=== PATIENT | male | born 1950 | race Caucasian/White ===

== ENCOUNTER → 2017-02-22 | Outpatient (CLI) | payer OTHER ==
[2014-09-07 23:35] VITALS: BP 144/87
[~2017-02-22] MED LIST: ALLO100T PO; ASPI-630 PO; CARV12.5 PO; DIGO125T PO; FURO80TA72 PO; HYDR12.58 PO; METF10002 PO; POTA20TA82 PO; QUIN20TA7 PO; SIMV40TA PO
--- NOTE | 2017-02-22 13:37 | RAD ---
CT right hip without contrast 02/22/2017 at 11:30 AM Indication: Chronic pain in the right hip. Difficulty bearing weight on leg. Comparison: CT abdomen/pelvis 09/07/2014 Technique: Axial CT images of the right hip were acquired without intravenous contrast. Coronal and sagittal reformats were provided. Findings: There is no acute fracture or dislocation. Bone mineralization appears to be within normal limits. Minimal acetabular osteophytosis is present. No significant joint space narrowing. No subchondral cystic changes are present. Small foveal osteophyte is present. Greater and lesser trochanter appear normal. Proximal femur is intact and normal in appearance. Pubic symphysis appears normal. There is no joint effusion. Visualized portions of the pelvis appear normal. Impression: Mild osteoarthrosis of the right hip. No evidence for acute fracture or dislocation. PQRS Compliance Statement: One or more of the following individualized dose reduction techniques were utilized for this examination: 1. Automated exposure control 2. Adjustment of the mA and/or kV according to patient size 3. Use of iterative reconstruction technique
== END | disposition home or self-care (01) ==
LOC: CT 11:03
PROVIDERS: ATTEND Family Medicine
DX: M16.11 Unilateral primary osteoarthritis, right hip (principal); G89.29 Other chronic pain
CPT/HCPCS: 73700

== ENCOUNTER → 2018-11-22 | Outpatient (CLI) | payer OTHER ==
[2014-09-07 23:35] VITALS: BP 144/87
[~2018-11-22] MED LIST changes: -DIGO125T PO; +DIGO125T17 PO; -METF10002 PO; +METF10007 PO; +QUIN20TA17 PO; -QUIN20TA7 PO
--- NOTE | 2018-11-22 10:00 | RAD ---
EXAM: Left knee, 3 views. HISTORY: Pain. COMPARISON: None. FINDINGS: A standing frontal view both knees and lateral and sunrise views of the left knee are obtained. There is severe left medial compartment joint space narrowing with degenerative subchondral sclerosis and marginal spurring. There is mild right medial compartment joint space narrowing and spurring. There is moderate left lateral and mild right lateral compartment and mild left patellofemoral compartment spurring. There is a small left suprapatellar effusion. There is slight left genu varus. IMPRESSION: 1. Severe medial compartment predominant osteoarthritis of the left knee with small joint effusion and slight genu varus. 2. Mild medial compartment predominant osteoarthritis of the right knee. Electronically signed by: Nadine Baumann MD (11/22/2018 9:57 AM) [facility]
== END | disposition home or self-care (01) ==
LOC: RAD 09:21
PROVIDERS: ATTEND Orthopaedic Surgery
DX: M17.0 Bilateral primary osteoarthritis of knee (principal); M25.462 Effusion, left knee; M21.162 Varus deformity, not elsewhere classified, left knee
CPT/HCPCS: 73562

== ENCOUNTER 2019-02-22 22:07 | Emergency (ER) | payer OTHER ==
[~2019-02-22] VITALS: Ht 172.7 cm; Wt 125.2 kg
--- NOTE | 2019-02-22 22:23 | ED.ADGEN ---
Past History Past Medical History: Arthritis, CAD, Constipation, Diabetes, High Cholesterol, Hypertension Past Surgical History: Cancer Surgery, Pacemaker Alcohol Use: Rarely Drug Use: None Adult General Chief Complaint Chief Complaint ".... We were moving out my brother in law stuff.. he just here... last month... . he had stage IV.. meta static cancer.. but it was still natividad unexpected.. but.. I tripped over the trailer gait cable.. and missed up my Lt. knee.... I know I already have bad knees... and smacked my head too...".." This has not been a good past month.. my mom too.. .. .. I know I got bad knees.. but this one really got ...to hurting after my fall.....".. " I was not going to come in.. but this knee was hurting... " HPI HPI Patient is a 68year old male who presents with above hx and complaints trip and fall. No loss of consciousness. Has a contusion and abrasion to left eyebrow. There is obvious swelling. No visual changes. Patient also has injury to left knee. Does have a history of arthritic changes. Unable to bear weight or walk with left knee with pain. Patient has abrasion to the patella area. Can do straight leg lift. Does have obvious edema to left knee. Distal neurovascular intact. . Patient denies other injury from the fall. Injuries occurred approximately 1800 hrs. tonight. Pt. normally follows with Dr. Dr. Chisholm. Has seen Dr. Richard about his bad knees in the past. Review of Systems Review of Systems Constitutional: Denies fever or chills [] Eyes: Denies change in visual acuity, redness, or eye pain [] HENT: Denies nasal congestion or sore throat []complaints of head injury Respiratory: Denies cough or shortness of breath [] Cardiovascular: No additional information not addressed in HPI [] GI: Denies abdominal pain, nausea, vomiting, bloody stools or diarrhea [] : Denies dysuria or hematuria [] Musculoskeletal: Denies back pain or joint pain [except]complaints of left knee injury Integument: Denies rash or skin lesions [] Neurologic: Denies headache, focal weakness or sensory changes [] Endocrine: Denies polyuria or polydipsia [] All other systems were reviewed and found to be within normal limits, except as documented in this note. Family History Family History Brother recently of cancer. [place] Current Medications Current Medications Current Medications Medications (Trade) Dose Ordered Sig/Tigist Start Time Stop Time Status Last Admin Dose Admin Morphine Sulfate (Morphine 10mg Syringe) 10 mg 1X ONCE 02/23/19 01:00 02/23/19 01:01 DC 02/23/19 00:53 10 MG Tetanus/ Diphtheria Toxoids Adsorbed (Tenivac Vial) 0.5 ml ONCE ONCE 02/22/19 22:30 02/22/19 22:31 UNV Allergies Allergies Allergies Coded Allergies Type Severity Reaction Last Updated Verified No Known Drug Allergies 09/07/14 No Physical Exam Physical Exam Constitutional: Moderate acute distress, non-toxic appearance. [] HENT: Normocephalic, left eyebrow contusion edema and abrasion, bilateral external ears normal, oropharynx moist, no oral exudates, nose normal. []Very poor dentition. Eyes: PERRLA, EOMI, conjunctiva normal, no discharge. [] No visual changes reported. Neck: Normal range of motion, no tenderness, supple, no stridor. [] Cardiovascular:Heart rate regular rhythm, no murmur []PMI to the left Lungs & Thorax: Bilateral breath sounds equal apex on auscultation[] Abdomen: Bowel sounds normal, soft, no tenderness, no masses, no pulsatile masses. [] Obese. Skin: Warm, dry, no erythema, no rash. [] Back: No tenderness, no CVA tenderness. [] Extremities: No tenderness, no cyanosis, no clubbing, ROM intact, no edema. [] E xcept findings and left knee as per history of present illness Neurologic: Alert and oriented X 3, moves all ext. on request. Distal sensory. Has no gross focal deficits noted. [] Psychologic: Affect anxious, judgement normal, mood normal. [] Current Patient Data Vital Signs Vital Signs Date Time Temp Pulse Resp B/P (MAP) Pulse Ox O2 Delivery O2 Flow Rate FiO2 02/22/19 22:07 97.8 83 22 95 Room Air EKG EKG [] Radiology/Procedures Radiology/Procedures My interpretation of Lt knee films.- marked DJD, loss of articulating cartilage. No obvious displaced fx.. [][address] [id number] IMAGING REPORT Signed PATIENT: CHEYANNE HOOKER ACCOUNT: [id number] : 1950 LOCATION: ER AGE: 68 SEX: M EXAM STATUS: REG ER ORD. PHYSICIAN: APOLLO MARTINEZ MD REASON: Fall, head injury. Brusing and pain above left eye PROCEDURE: CT HEAD AND CERVICAL SPINE WO INDICATION: Status post fall with head and neck pain COMPARISON: None. TECHNIQUE: Axial CT images obtained through the head, cervical spine and face. One or more of the following individualized dose reduction techniques were utilized for this examination: 1. Automated exposure control; 2. Adjustment of the mA and/or kV according to patient size; 3. Use of iterative reconstruction technique. FINDINGS: Head: No midline shift. Suprasellar cistern is not effaced. No hydrocephalus. Mild prominence of ventricles and sulci which can be seen with age-related volume loss. No definite acute intracranial hemorrhage. Cervical spine: Degenerative changes throughout the cervical spine with osteophyte formation at the vertebral body endplates with uncovertebral and facet hypertrophy. This contributes to multilevel central canal and neural foraminal stenosis. No definite acute fracture. Mild retrolisthesis of C3 on 4. Facial: Left preorbital hematoma extending to the scalp. No definite acute fracture or dislocation IMPRESSION: 1. No acute intracranial hemorrhage. 2. Degenerative changes the spine without definite acute fracture or dislocation. 3. Left preorbital hematoma. Electronically signed by: Riky Jo MD (02/23/2019 1:04 AM) [facility] DICTATED AND SIGNED BY: RIKY JO MD DATE: 02/23/19 0104 CC: LONI CHISHOLM MD; APOLLO MARTINEZ MD ~ Course & Med Decision Making Course & Med Decision Making Pertinent Labs and Imaging studies reviewed. (See chart for details), Pt. to do ice packs. Rest. Elevation. Wear current knee brace and use crutches. Follow up with Dr. Chisholm and Dr. Richard. Return if any concerns. Percocet f or marked pain. Return if any concerns. Monitor for mental status changes. [] Final Impression Final Impression 1. Lt Knee Sprain/ Strain contusion 2. Head Injury[] Dragon Disclaimer Dragon Disclaimer This electronic medical record was generated, in whole or in part, using a voice recognition dictation system. Discharge Summary Visit Information Final Diagnosis Problems Medical Problems: (1) Head injury Status: Acute (2) Knee arthropathy Status: Acute Brief Hospital Course Allergies Allergies Coded Allergies Type Severity Reaction Last Updated Verified No Known Drug Allergies 09/07/14 No Vital Signs Vital Signs Date Time Temp Pulse Resp B/P (MAP) Pulse Ox O2 Delivery O2 Flow Rate FiO2 02/22/19 22:07 97.8 83 22 95 Room Air Brief Hospital Course Mr. Hooker is a 68 old male who presented with hx trip and fall. Head injury and Lt knee injury. Discharge Information Condition at Discharge: Improved, Stable Disposition/Orders: D/C to Home Dischare Medications Current Medications Tetanus/ Diphtheria Toxoids Adsorbed (Tenivac Vial) 0.5 ml ONCE ONCE VAX IM ; Start 02/22/19 at 22:30; Stop 02/22/19 at 22:31; Status UNV Morphine Sulfate (Morphine 10mg Syringe) 10 mg 1X ONCE SQ Last administered on 02/22/19at 22:59; Admin Dose 10 MG; Start 02/22/19 at 23:00; Stop 02/22/19 at 23:01; Status DC Morphine Sulfate (Morphine 10mg Syringe) 10 mg 1X ONCE SQ Last administered on 02/23/19at 00:53; Admin Dose 10 MG; Start 02/23/19 at 01:00; Stop 02/23/19 at 01:01; Status DC Active Scripts Active Percocet 5-325 Mg Tablet (Oxycodone Hcl/Acetaminophen) 1 Each Tablet 1 Tab PO PRN Q6HRS PRN Reported Hydrochlorothiazide Tablet (Hydrochlorothiazide) 12.5 Mg Tablet 12.5 Mg PO DAILY Quinapril Hcl 20 Mg Tablet 20 Mg PO DAILY Zocor (Simvastatin) 40 Mg Tablet 40 Mg PO HS Potassium Chloride 20 Meq Tablet.er 20 Meq PO BID Metformin Hcl 1,000 Mg Tablet 1,000 Mg PO BIDBFRMEAL Lasix (Furosemide) 80 Mg Tablet 80 Mg PO BID Digoxin 125 Mcg Tablet 125 Mcg PO DAILY Coreg (Carvedilol) 12.5 Mg Tablet 12.5 Mg PO BIDWMEALS Aspirin 81 Mg Tab.chew 81 Mg PO DAILY Allopurinol 100 Mg Tablet 100 Mg PO DAILY Harry Disclaimer This chart was dictated in whole or in part using Voice Recognition software in a busy, high-work load, and often noisy Emergency Department environment. It may contain unintended and wholly unrecognized errors or omissions. APOLLO MARTINEZ MD Feb 22, 2019 22:23
[2019-02-22] MEDS ORDERED: TETANUS AND DIPHTHERIA TOX/PF 0.5 ML VIAL. VAX IM ONE (22:30)
[2019-02-22] MEDS ORDERED: MORPHINE SULFATE 10 MG/ML SYRINGE. SQ ONE (23:00)
[2019-02-23] MEDS ORDERED: MORPHINE SULFATE 10 MG/ML SYRINGE. SQ ONE (01:00)
--- NOTE | 2019-02-23 01:07 | RAD ---
INDICATION: Status post fall with head and neck pain COMPARISON: None. TECHNIQUE: Axial CT images obtained through the head, cervical spine and face. One or more of the following individualized dose reduction techniques were utilized for this examination: 1. Automated exposure control; 2. Adjustment of the mA and/or kV according to patient size; 3. Use of iterative reconstruction technique. FINDINGS: Head: No midline shift. Suprasellar cistern is not effaced. No hydrocephalus. Mild prominence of ventricles and sulci which can be seen with age-related volume loss. No definite acute intracranial hemorrhage. Cervical spine: Degenerative changes throughout the cervical spine with osteophyte formation at the vertebral body endplates with uncovertebral and facet hypertrophy. This contributes to multilevel central canal and neural foraminal stenosis. No definite acute fracture. Mild retrolisthesis of C3 on 4. Facial: Left preorbital hematoma extending to the scalp. No definite acute fracture or dislocation IMPRESSION: 1. No acute intracranial hemorrhage. 2. Degenerative changes the spine without definite acute fracture or dislocation. 3. Left preorbital hematoma. Electronically signed by: Doug Jo MD (02/23/2019 1:04 AM) [facility]
[2019-02-23] MEDS ORDERED: OXYC1TAB15 PO (01:14)
[2019-02-23 01:19] VITALS: BP 134/89
--- NOTE | 2019-02-23 07:50 | RAD ---
CHEST AP ONLY Clinical Indication: Fall, pain Comparison: None. Findings: PA upright frontal view of the chest was obtained. Dual-lead left-sided pacemaker is intact. Heart size and pulmonary vasculature are normal. The cardiomediastinal silhouette is normal. Lungs are clear. There is no pneumothorax. No pleural effusion is appreciated. No acute bone abnormality. IMPRESSION: No acute cardiopulmonary process. Electronically signed by: Judson Butler MD (02/23/2019 7:47 AM) [facility]
--- NOTE | 2019-02-23 07:51 | RAD ---
Examination: KNEE LEFT 4V History: Fall, pain Comparison/Correlation: None Findings: Total of 5 images of the left knee were provided. Severe medial compartment narrowing is present with subchondral sclerosis and spurring. Spurring about the lateral compartment is noted. Patellofemoral compartment degenerative remodeling and spurring noted. Moderate-sized knee joint effusion is present. No acute fracture or bony destruction. Impression: Advanced degenerative changes especially of the medial compartment. Joint effusion. No acute process. Electronically signed by: Judson Butler MD (02/23/2019 7:48 AM) [facility]
== END 2019-02-23 01:30 | disposition home or self-care (01) ==
LOC: ER 22:07
DX: S00.12XA Contusion of left eyelid and periocular area, initial encounter (principal); S80.212A Abrasion, left knee, initial encounter; M12.862 Other specific arthropathies, not elsewhere classified, left knee; I25.10 Atherosclerotic heart disease of native coronary artery without angina pectoris; E11.9 Type 2 diabetes mellitus without complications; E78.00 Pure hypercholesterolemia, unspecified; I10 Essential (primary) hypertension; R51 Headache; M54.2 Cervicalgia; Z95.0 Presence of cardiac pacemaker; W01.0XXA Fall on same level from slipping, tripping and stumbling without subsequent striking against object, initial encounter; Y93.89 Activity, other specified; Y92.89 Other specified places as the place of occurrence of the external cause; Y99.8 Other external cause status
CPT/HCPCS: 29505; 70450; 70486; 71045; 72125; 73564; 96372; 99284; J2270; 99285-25

== ENCOUNTER 2019-08-17 11:34 | Inpatient (IN) | payer MEDICARE, OTHER ==
[~2019-08-17] VITALS: Ht 175.3 cm; Wt 131.3 kg
[~2019-08-17 11:34] MED LIST changes: +OXYC1TAB15 PO; +POTA20TA4 PO; -POTA20TA82 PO
[2019-08-17 11:54] VITALS: BP 189/93
[2019-08-17 12:02] VITALS: BP 189/93
[2019-08-17] MEDS ORDERED: DEXTROSE 50% 25 GM / 50ML DISP.SYRIN. IV PRN (12:15)
[2019-08-17] MEDS: INSULIN LISPRO 300 UNITS/3 ML VIAL. SQ SCH ×2 (12:30→16:48)
[2019-08-17 13:28] LABS: BASO # 0.2 x10^3/uL (0.0-0.2); BASO % 2 % (0-3); EOS # 0.7 x10^3/uL (0.0-0.7); EOS % 7 % (0-3); HEMOGLOBIN 12.6 g/dL (13.0-17.5); LYMPH # 2.3 x10^3/uL (1.0-4.8); LYMPH % 23 % (24-48); MEAN CORPUSCULAR HEMOGLOBIN 30 pg (25-35); MEAN CORPUSCULAR HGB CONC 33 g/dL (31-37); MEAN CORPUSCULAR VOLUME 91 fL (79-100); MONO # 0.6 x10^3/uL (0.0-1.1); MONO % 6 % (0-9); NEUT # 6.4 x10^3uL (1.8-7.7); NEUT % 63 % (31-73); PLATELET COUNT 266 x10^3/uL (140-400); RED BLOOD COUNT 4.17 x10^6/uL (4.30-5.70); RED CELL DISTRIBUTION WIDTH 14.7 % (11.5-14.5); WHITE BLOOD COUNT 10.2 x10^3/uL (4.0-11.0)
[2019-08-17] MEDS: FUROSEMIDE 40 MG/4 ML VIAL IVP SCH (13:57)
--- NOTE | 2019-08-17 14:30 | NUR ---
Pt arrived on [facility] at approximately 1134. Pt came from Dr. Carranza's office for CHF exacerbation. Pt denies any pain. BP upon arrival 189/93. Notified Provider of high BP will recheck as instructed. Ekg performed, bed in lowest position, call light within reach, family at bedside. Peripheral IV inserted in L upper arm. Non-skid socks applied. Care plans initiated. Received pt medication list from spouse. Will continue to assess and await upcoming orders.
[2019-08-17] MEDS ORDERED: METF500T16 PO (15:03)
[2019-08-17] MEDS ORDERED: CARV25TA2 PO (15:03)
[2019-08-17] MEDS ORDERED: HYDR-2763 PO (15:03)
[2019-08-17] MEDS ORDERED: POTASSIUM PO (15:03)
[2019-08-17 15:05] VITALS: BP 171/81
[2019-08-17] MEDS ORDERED: VIT1CAPS12 PO (15:08)
[2019-08-17] MEDS ORDERED: INSU100V13 SQ (15:08)
[2019-08-17] MEDS ORDERED: COLC0.6T34 PO (15:08)
[2019-08-17] MEDS ORDERED: OMEP-203 PO (15:09)
[2019-08-17 15:15] LABS: ALBUMIN 2.9 g/dL (3.4-5.0); ALBUMIN/GLOBULIN RATIO 0.8 (1.0-1.7); CREATININE 1.2 mg/dL (0.7-1.3); GFR 60.4; MAGNESIUM 2.1 mg/dL (1.8-2.4); POTASSIUM 4.4 mmol/L (3.5-5.1); TOTAL BILIRUBIN 0.3 mg/dL (0.2-1.0); TOTAL PROTEIN 6.7 g/dL (6.4-8.2)
[2019-08-17] MEDS ORDERED: SACU1TAB PO (15:15)
[2019-08-17] MEDS ORDERED: HYDROcodone/APAP 7.5/325MG 1 TAB TABLET PO PRN (15:30)
[2019-08-17] MEDS ORDERED: oxyCODONE/APAP 5/325 1 TAB TABLET PO PRN (15:30)
--- NOTE | 2019-08-17 16:20 | CONS ---
DATE OF CONSULTATION: 08/17/2019 REASON FOR CONSULTATION: Heart failure. HISTORY OF PRESENT ILLNESS: The patient is a pleasant 68-year-old man with past medical history as described below, who comes into the hospital at the urging of his primary care physician due to persistent shortness of breath. The patient reports that he usually is seen at the [facility]. He has a known diagnosis of diastolic heart failure and he has been managed on losartan and furosemide therapy. He reports that over the last 1 month, he has gained approximately 30 pounds or so. He reports lower extremity edema and exertional dyspnea. He does not have any chest pain. Based on review of outside hospital records, the prior cardiology note from late 2018, it is notable that the patient apparently had a negative stress test in 2018 and a normal echocardiogram. He had nonsustained ventricular tachycardia on prior pacemaker interrogation and recent device interrogation in July has not revealed any significant pathology. The patient upon arrival to the hospital was noted to be significantly hypertensive. He does endorse that Dr. Carranza, his primary care physician recently stopped his losartan and also stopped his diuretic therapy and he apparently was given a different diuretic and the details of this are currently unclear. Furthermore from a medication perspective, he previously was on losartan as noted, but currently he has also been prescribed Entresto. Outside hospital records, although the physician notes mention normal stress test and echocardiogram, I do not have the actual echocardiogram report or the stress test report to confirm a normal ejection fraction. PAST MEDICAL HISTORY: 1. Diastolic heart failure and significant morbid obesity. 2. Chronic kidney disease with last known creatinine of 1.4 in 2019 and currently at 1.2. 3. Hypertension. 4. Diabetes. 5. Dyslipidemia. 6. Obstructive sleep apnea. ALLERGIES: No known drug allergies. CURRENT CARDIOVASCULAR MEDICATIONS: Unclear, but the patient reportedly has been on Coreg, losartan, furosemide. FAMILY HISTORY: Noncontributory. SOCIAL HISTORY: No alcohol, tobacco or illicit drug use. REVIEW OF SYSTEMS: Negative for 10 out of 14 systems reviewed, unless otherwise mentioned above in HPI. PHYSICAL EXAMINATION: VITAL SIGNS: Afebrile, 65, 20, 171/81, 93% on room air. GENERAL: He is very morbidly obese patient, in no acute distress, resting comfortably, lying flat in bed. HEAD AND NECK: Unremarkable. Neck veins are difficult to visualize. CARDIAC: Distant heart sounds, but regular rate and rhythm without any obvious murmurs. LUNGS: Clear to auscultation anteriorly. ABDOMEN: Obese, protuberant, nontender. Bowel sounds are distant. EXTREMITIES: 2+ lower extremity edema. 2+ radial and 1+ pedal pulses. NEUROLOGIC: No focal deficits. MUSCULOSKELETAL: No obvious trauma. DIAGNOSTIC STUDIES: Hemoglobin, platelets, creatinine are within normal limits. Troponin is negative. BNP is 682. EKG is currently pending. IMPRESSION: 1. Presumed diastolic heart failure and we will await the reports of his prior ischemic cardiac testing. 2. Uncontrolled hypertension, likely leading to #1. 3. Diabetes. 4. Chronic kidney disease, currently with a baseline creatinine of 1.2. RECOMMENDATIONS: 1. We will confirm the patient's appropriate medication list and reinstate him on his drugs and further recommendations forthcoming after review of outside hospital record. Suspect he will need to be reinitiated back on his carvedilol, losartan and diuretic therapy with spironolactone and Lasix. Monitor renal function closely. If the outside hospital testing does confirm a negative ischemic evaluation within the last 1-2 years, then no further cardiac stress testing is necessary at this time. Supportive care. Thank you for this consultation. GOPAL LLOYD MD DR: QUYEN/tenisha JOB#: [id number] / [id number]
[2019-08-17] MEDS: SACUBITRIL/VALSARTAN 24/26MG TABLET. PO SCH ×2 (16:46→21:44)
[2019-08-17] MEDS ORDERED: CARVEDILOL 12.5 MG TABLET PO SCH (17:00)
[2019-08-17] MEDS: CARVEDILOL 12.5 MG TABLET PO SCH (17:02)
[2019-08-17] MEDS: metFORMIN 500 MG TABLET PO SCH (17:03)
--- NOTE | 2019-08-17 17:38 | EKG ---
[address] [address] Test Date: 2019-08-17 Test Time: 12:22:09 Pat Name: CHEYANNE FELIX Department: Room: 103 A Gender: M Physician Coding Specialist: : 1950 Requested By: LONI CHISHOLM Order Number: [id number] Reading MD: Measurements Intervals [place] Rate: 66 P: [place]: QRS: 44 QRSD: 74 T: 30 QT: 382 QTc: 402 Interpretive Statements IRREGULAR RHYTHM, NO P-WAVE FOUND LOW LIMB LEAD VOLTAGE QRS(T) CONTOUR ABNORMALITY CONSISTENT WITH ANTEROSEPTAL INFARCT AGE UNDETERMINED ABNORMAL ECG RI6.02 No previous ECG available for comparison
[2019-08-17 19:36] VITALS: BP 185/75
[2019-08-17] MEDS: INSULIN GLARGINE SYRINGE. SQ SCH (21:00)
[2019-08-17] MEDS ORDERED: SIMVASTATIN 40 MG TABLET. PO SCH (21:00)
[2019-08-17] MEDS ORDERED: POTASSIUM 20 MEQ PO SCH (21:00)
[2019-08-17] MEDS ORDERED: INSULIN DETEMIR 70 UNIT SQ SCH (21:00)
[2019-08-17] MEDS: POTASSIUM CHLORIDE 20 MEQ TABLET.ER. PO SCH (21:44)
[2019-08-17] MEDS: MULTIVITAMIN I-VITE TABLET. PO SCH (21:44)
[2019-08-17 22:16] VITALS: BP 161/70
[2019-08-17] MEDS ORDERED: ZOLPIDEM 5 MG TABLET. PO PRN (23:00)
[2019-08-17] MEDS ORDERED: MAG HYDROX/AL HYDROX/SIMETH 30 ML ORAL.SUSP PO PRN (23:00)
[2019-08-18 05:16] VITALS: BP 182/74
--- NOTE | 2019-08-18 07:41 | PDOC ---
ANGELINA SEVILLA SMOCKING MACHINE OPERATOR 08/18/19 0741: CARDIO Progress Notes Date & Time Date of Service DATE: 08/18/19 TIME: 07:33 Time of Evaluation 07:33 Subjective Notes Edema better, but persists Vitals Vitals Vital Signs Date Time Temp Pulse Resp B/P (MAP) Pulse Ox O2 Delivery O2 Flow Rate FiO2 08/18/19 05:16 97.6 64 20 182/74 (110) 93 Room Air Weight Weight [ ] Input and Output I.O. Intake and Output 08/18/19 06:59 Intake Total 1320 ml Output Total 2 ml Balance 1318 ml Intake Oral 1320 ml Output Urine Total 2 ml # Voids 3 Laboratory Labs Laboratory Tests Test 08/17/19 11:47 08/17/19 13:15 08/17/19 14:52 08/17/19 16:47 Glucose (Fingerstick) 71 mg/dL (70-99) 68 mg/dL (70-99) White Blood Count 10.2 x10^3/uL (4.0-11.0) Red Blood Count 4.17 x10^6/uL (4.30-5.70) Hemoglobin 12.6 g/dL (13.0-17.5) Hematocrit 38.0 % (39.0-53.0) Mean Corpuscular Volume 91 fL (79-100) Mean Corpuscular Hemoglobin 30 pg (25-35) Mean Corpuscular Hemoglobin Concent 33 g/dL (31-37) Red Cell Distribution Width 14.7 % (11.5-14.5) Platelet Count 266 x10^3/uL (140-400) Neutrophils (%) (Auto) 63 % (31-73) Lymphocytes (%) (Auto) 23 % (24-48) Monocytes (%) (Auto) 6 % (0-9) Eosinophils (%) (Auto) 7 % (0-3) Basophils (%) (Auto) 2 % (0-3) Neutrophils # (Auto) 6.4 x10^3uL (1.8-7.7) Lymphocytes # (Auto) 2.3 x10^3/uL (1.0-4.8) Monocytes # (Auto) 0.6 x10^3/uL (0.0-1.1) Eosinophils # (Auto) 0.7 x10^3/uL (0.0-0.7) Basophils # (Auto) 0.2 x10^3/uL (0.0-0.2) Troponin I Quantitative < 0.017 ng/mL (0-0.055) FE-Ste-N-Type Natriuretic Peptide 682 pg/mL (0-124) Sodium Level 144 mmol/L (136-145) Potassium Level 4.4 mmol/L (3.5-5.1) Chloride Level 107 mmol/L (98-107) Carbon Dioxide Level 27 mmol/L (21-32) Anion Gap 10 (6-14) Blood Urea Nitrogen 19 mg/dL (8-26) Creatinine 1.2 mg/dL (0.7-1.3) Estimated GFR (Cockcroft-Gault) 60.4 BUN/Creatinine Ratio 16 (6-20) Glucose Level 91 mg/dL (70-99) Calcium Level 9.0 mg/dL (8.5-10.1) Magnesium Level 2.1 mg/dL (1.8-2.4) Total Bilirubin 0.3 mg/dL (0.2-1.0) Aspartate Amino Transf (AST/SGOT) 10 U/L (15-37) Alanine Aminotransferase (ALT/SGPT) 15 U/L (16-63) Alkaline Phosphatase 66 U/L (46-116) Creatine Kinase 27 U/L (39-308) Total Protein 6.7 g/dL (6.4-8.2) Albumin 2.9 g/dL (3.4-5.0) Albumin/Globulin Ratio 0.8 (1.0-1.7) Test 08/17/19 20:02 Glucose (Fingerstick) 78 mg/dL (70-99) Physical Exams HEENT: Neck Supple W Full Motion Chest: Symmetric Lungs: Other (diminished ) Heart: S1S2, RRR (v-paced) Abdomen: Soft N/T Extremities: Other (1+ bilateral LE edema ) Neurology: alert, oriented, follow commands Assessment Assessment 1. Acute on chronic presumed diastolic heart failure. Stress test 2018 without ischemic. Echo in 2018 with LVEF 60% 2. Accelerated hypertension; remains elevated 3. Diabetes, II 4. Dyslipidemia. 5. CKD 6. PAFIB; maintaining SR. 5 AHR events with an atrial burden of <0.1% 7. SSS s/p PPM ([employer]tr[employer]) Recent device check with normal function 8. Obstructive sleep apnea. 9. Morbid obesity 10. Recent significant weight gain Recommendations Echo to assess LV systolic function (last echo noted was in 2018 per [facility] records). Ongoing diuresis with monitoring of renal function Continue dig for rate control HF optimization Add norvasc for BP control Supportive care LIZA DE LA O MD 08/18/19 1631: CARDIO Progress Notes Plan Plan Patient seen and examined Assessment 1. Acute on chronic presumed diastolic heart failure. Stress test 2018 without ischemic. Updated echocardiogram with an ejection fraction of 55%. Continuing medical treatment. 2. Accelerated hypertension; proved. Adjusting medications. 3. Diabetes, II 4. Dyslipidemia. 5. CKD 6. PAFIB; maintaining SR. 5 AHR events with an atrial burden of <0.1% 7. SSS s/p PPM ([employer]tr[employer]) Recent device check with normal function 8. Obstructive sleep apnea. 9. Morbid obesity 10. Recent significant weight gain Recommendations Continue present medications with the addition of Norvasc. Increase activities as tolerated. Home soon from a cardiovascular viewpoint. ANGELINA SEVILLA APRN Aug 18, 2019 07:41 LIZA DE LA O MD Aug 18, 2019 16:31
[2019-08-18] MEDS ORDERED: hydrALAZINE 20 MG/ML VIAL. IV PRN (07:45)
[2019-08-18] MEDS: INSULIN LISPRO 300 UNITS/3 ML VIAL. SQ SCH ×3 (08:00→17:00)
[2019-08-18] MEDS ORDERED: FLU VAX QS 2019-20 (36MOS+)/PF 0.5 ML SYRINGE. VAX IM ONE (08:00)
[2019-08-18] MEDS: FUROSEMIDE 40 MG/4 ML VIAL IVP SCH ×2 (08:07→14:13)
[2019-08-18] MEDS: metFORMIN 500 MG TABLET PO SCH ×2 (08:08→17:10)
[2019-08-18] MEDS: ASPIRIN 81 MG TAB.CHEW PO SCH (08:08)
[2019-08-18] MEDS: DIGOXIN 125 MCG TABLET PO SCH (08:08)
[2019-08-18] MEDS: PANTOPRAZOLE 40 MG TABLET. PO SCH (08:08)
[2019-08-18] MEDS: POTASSIUM CHLORIDE 20 MEQ TABLET.ER. PO SCH ×2 (08:08→21:41)
[2019-08-18] MEDS: MULTIVITAMIN I-VITE TABLET. PO SCH ×2 (08:08→21:41)
[2019-08-18] MEDS: SACUBITRIL/VALSARTAN 24/26MG TABLET. PO SCH (08:09)
[2019-08-18] MEDS: CARVEDILOL 12.5 MG TABLET PO SCH ×2 (08:09→17:11)
[2019-08-18] MEDS: ALLOPURINOL 100 MG TABLET. PO SCH (08:09)
[2019-08-18] MEDS ORDERED: QUINAPRIL HCL 20 MG PO SCH (09:00)
[2019-08-18] MEDS: hydrALAZINE 25 MG TABLET PO SCH ×3 (09:13→21:41)
[2019-08-18] MEDS: amLODIPine BESYLATE 5 MG TABLET PO SCH (09:13)
[2019-08-18] MEDS: LOSARTAN 50 MG TABLET. PO SCH (09:13)
[2019-08-18 10:46] VITALS: BP 157/79
--- NOTE | 2019-08-18 11:56 | RAD ---
CHEST PA LATERAL History: Shortness of breath Comparison: 02/22/2019 AP view of the chest. Findings: Frontal and lateral views of the chest were obtained. Dual-lead left-sided pacemaker is present. The cardiomediastinal silhouette is normal. Pulmonary vasculature is normal. The lungs are clear. No pleural effusion or pneumothorax is seen. There is no acute bone abnormality. IMPRESSION: No acute cardiopulmonary process. Electronically signed by: Judson Butler MD (08/18/2019 11:53 AM) [facility]
[2019-08-18 14:46] VITALS: BP 171/91
--- NOTE | 2019-08-18 16:18 | CARD ---
MR#: [id number] Date of Study: 08/18/2019 Ordering Physician: ANGELINA SEVILLA, Referring Physician: ANGELINA SEVILLA, Tech: Radha Palm APPROVED REPORT EXAM: Two-dimensional and M-mode echocardiogram with Doppler and color Doppler. Other Information Quality : FairHR: 62bpm Technically limited study due to body habitus. INDICATION Dyspnea Congestive Heart Failure Surgery/Intervention Pacemaker: RISK FACTORS Hypertension Hyperlipidemia Diabetes 2D DIMENSIONS RVDd4.3 (2.9-3.5cm)Left Atrium(2D)3.9 (1.6-4.0cm) IVSd1.3 (0.7-1.1cm)Aortic Root(2D)4.0 (2.0-3.7cm) LVDd5.5 (3.9-5.9cm)LVOT Diameter2.3 (1.8-2.4cm) PWd1.5 (0.7-1.1cm)LVDs3.8 (2.5-4.0cm) FS (%) 31.8 %SV88.8 ml LVEF(%)59.3 (>50%) Aortic Valve AoV Peak Patrick.130.8cm/sAoV VTI28.8cm AO Peak GR.6.8mmHgLVOT Peak Patrick.76.8cm/s LVOT VTI 19.77cmAO Mean GR.4mmHg GALI (VMAX)2.05jx3KSH (VTI)2.76cm2 Mitral Valve MV E Vlsktkdj27.7cm/sMV DECEL [id number] MV A Mpbbuzqq73.5cm/sE/A Ratio1.1 Pulmonary Valve PV Peak Bvqlfrac26.8cm/sPV Peak Grad.3mmHg Tricuspid Valve TR P. Qhxxsisp525iy/sRAP CXJIVDWQ3ftKh TR Peak Gr.30xlYbNORL38heDk Pulmonary Vein S1 Bydwzxmn39.7cm/sD2 Snecidjg40.9cm/s LEFT VENTRICLE The left ventricle is normal size. There is moderate concentric left ventricular hypertrophy. The lef t ventricular systolic function is normal. The Ejection Fraction is 55%. There is normal LV segmental wall motion. RIGHT VENTRICLE The right ventricle is mildly dilated. There is normal right ventricular wall thickness. Right ventri cular function cannot be assessed due to poor image quality. There is a pacemaker lead in the right v entricle. ATRIA The left atrium size is normal. The right atrium size is normal. There is a pacemaker lead seen in th e right atrium. The interatrial septum is intact with no evidence for an atrial septal defect or waggoner nt foramen ovale as noted on 2-D or Doppler imaging. AORTIC VALVE The aortic valve is normal in structure and function. Doppler and Color Flow revealed no significant aortic regurgitation. There is no significant aortic valvular stenosis. MITRAL VALVE The mitral valve is normal in structure and function. There is no evidence of mitral valve prolapse. There is no mitral valve stenosis. Doppler and Color Flow revealed no mitral valve regurgitation note d. TRICUSPID VALVE The tricuspid valve is not well visualized. Doppler and Color Flow revealed trace tricuspid regurgita tion with an estimated PAP of 33 mmHg. There is no tricuspid valve stenosis. PULMONIC VALVE The pulmonic valve is not well visualized. Doppler and Color Flow revealed trace pulmonic valvular re gurgitation. GREAT VESSELS The aortic root is normal in size. The IVC was not well visualized. PERICARDIAL EFFUSION There is no evidence of significant pericardial effusion. Critical Notification Critical Value: No <Conclusion> Technically difficult study. The left ventricular systolic function is normal. The Ejection Fraction is 55%. There is normal LV segmental wall motion. There is a pacemaker lead in the right atrium and right ventricle. Trace tricuspid regurgitation with an estimated PAP of 33 mmHg. There is no evidence of significant pericardial effusion. Signed by : Russell Lam, Electronically Approved : 08/18/2019 16:17:27
[2019-08-18 19:29] VITALS: BP 125/74
[2019-08-18] MEDS: INSULIN GLARGINE SYRINGE. SQ SCH (21:39)
[2019-08-18] MEDS: ATORVASTATIN CALCIUM 20 MG TABLET PO SCH (21:41)
[2019-08-18 22:46] VITALS: BP 143/76
--- NOTE | 2019-08-19 03:21 | PN ---
DATE: SUBJECTIVE: The patient admitted with congestive heart failure and the like. The patient is doing somewhat better. He still has swelling, but he has good output, which is not being measured very well. In any case, he is diuresing good and seems to be making fairly good progress in that regard. He has been seen by Cardiology. Blood pressure is still elevated and we are adjusting his medications on that. OBJECTIVE: VITAL SIGNS: His blood pressure 170/90, respiratory rate 20, pulse 66, afebrile. He is 93% on room air. GENERAL: The patient is alert and oriented. NECK: The patient's neck is supple. LUNGS: Diminished throughout. CARDIOVASCULAR: Ventricular paced S1, S2. ABDOMEN: Distended, soft, nontender, no rebound or guarding. Positive bowel sounds, no hepatosplenomegaly. EXTREMITIES: +1 to 2 pitting bilateral edema. NEUROLOGIC: Alert and oriented x 3. LABORATORY DATA: Show hemoglobin of 12.6 and 38. His blood sugars are under better control. The patient's ____ that is 144/4.4. He has severe protein malnutrition. IMPRESSION: Acute on top of chronic diastolic heart failure, hypertensive urgency, type 2 diabetes, morbid obesity, dyslipidemia, paroxysmal atrial fibrillation, sick sinus syndrome and Medtronic pacemaker, obstructive sleep apnea, morbid obesity and recent weight gain. PLAN: Continue with diuresis, try to get that blood pressure down and we will make further evaluation on him as indicated. LONI CHISHOLM MD DR: PABLO/tenisha JOB#: [id number] / [id number]
--- NOTE | 2019-08-19 04:59 | NUR ---
pt received 35units of insulin instead of his full 70 units due to his blood sugar being only 133. will monitor pt through the night.
[2019-08-19 05:19] VITALS: BP 169/81
[2019-08-19 07:01] LABS: BASO % 0 % (0-3); EOS # 0.6 x10^3/uL (0.0-0.7); EOS % 7 % (0-3); HEMATOCRIT 37.4 % (39.0-53.0); HEMOGLOBIN 12.4 g/dL (13.0-17.5); LYMPH # 1.8 x10^3/uL (1.0-4.8); LYMPH % 22 % (24-48); MEAN CORPUSCULAR HEMOGLOBIN 31 pg (25-35); MEAN CORPUSCULAR HGB CONC 33 g/dL (31-37); MEAN CORPUSCULAR VOLUME 93 fL (79-100); MONO # 0.6 x10^3/uL (0.0-1.1); MONO % 7 % (0-9); NEUT # 5.1 x10^3uL (1.8-7.7); NEUT % 63 % (31-73); PLATELET COUNT 274 x10^3/uL (140-400); RED BLOOD COUNT 4.01 x10^6/uL (4.30-5.70); WHITE BLOOD COUNT 8.2 x10^3/uL (4.0-11.0)
[2019-08-19 07:09] LABS: CALCIUM 8.9 mg/dL (8.5-10.1); CREATININE 1.4 mg/dL (0.7-1.3); GFR 50.5; POTASSIUM 4.5 mmol/L (3.5-5.1)
[2019-08-19] MEDS: FUROSEMIDE 40 MG/4 ML VIAL IVP SCH ×2 (08:14→14:16)
[2019-08-19] MEDS: DIGOXIN 125 MCG TABLET PO SCH (08:15)
[2019-08-19] MEDS: LOSARTAN 50 MG TABLET. PO SCH (08:15)
[2019-08-19] MEDS: PANTOPRAZOLE 40 MG TABLET. PO SCH (08:18)
[2019-08-19] MEDS: POTASSIUM CHLORIDE 20 MEQ TABLET.ER. PO SCH ×2 (08:18→21:30)
[2019-08-19] MEDS: metFORMIN 500 MG TABLET PO SCH ×2 (08:18→16:48)
[2019-08-19] MEDS: CARVEDILOL 12.5 MG TABLET PO SCH ×2 (08:18→16:49)
[2019-08-19] MEDS: amLODIPine BESYLATE 5 MG TABLET PO SCH (08:18)
[2019-08-19] MEDS: ALLOPURINOL 100 MG TABLET. PO SCH (08:18)
[2019-08-19] MEDS: hydrALAZINE 25 MG TABLET PO SCH ×3 (08:19→21:30)
[2019-08-19] MEDS: ASPIRIN 81 MG TAB.CHEW PO SCH (08:19)
[2019-08-19] MEDS: MULTIVITAMIN I-VITE TABLET. PO SCH ×2 (08:19→21:30)
[2019-08-19] MEDS: INSULIN LISPRO 300 UNITS/3 ML VIAL. SQ SCH ×3 (08:27→16:44)
[2019-08-19] MEDS ORDERED: NITROGLYCERIN 0.2MG/HR PATCH. TD SCH ×2 (09:00→12:00)
[2019-08-19] MEDS ORDERED: NITROGLYCERIN 0.3MG/HR PATCH. TD SCH (09:30)
--- NOTE | 2019-08-19 10:19 | PN ---
DATE: SUBJECTIVE: A 68-year-old male in with acute on top of chronic diastolic heart failure. The patient has been markedly distended with over fluid retention and the like, seems to be doing somewhat better this morning. OBJECTIVE: VITAL SIGNS: Blood pressure is still a problem that is coming down gradually 169/81, respiratory rate 24, pulse 63, afebrile. GENERAL: The patient is alert and oriented. LUNGS: Diminished, some crackles in the bases, but markedly improved from where they were. ABDOMEN: Otherwise, the abdomen is soft, nontender. The patient is still having pitting edema, but less so that he had previously. Pulses noted distally. NEUROLOGIC: Alert and oriented. Speech is fluent, spontaneous, appropriate. The patient is ambulatory and moving around quite freely. IMPRESSION: Acute on top of chronic diastolic heart failure, hypertensive urgency, type 2 diabetes, morbid obesity, dyslipidemia, paroxysmal atrial fibrillation, sick sinus syndrome, Medtronic pacemaker, obstructive sleep apnea, morbid obesity, recent weight gain. The patient otherwise will go ahead and continue on his diuresis. Cardiology is to review his echo and we will make further evaluation at that time. LONI CHISHOLM MD DR: PABLO/tenisha JOB#: [id number] / [id number]
[2019-08-19 11:05] VITALS: BP 147/81
[2019-08-19] MEDS ORDERED: NITROGLYCERIN 0.1MG/HR PATCH. TD SCH (12:00)
[2019-08-19] MEDS ORDERED: amLODIPine BESYLATE 5 MG TABLET PO ONE (14:00)
--- NOTE | 2019-08-19 14:32 | PDOC ---
PROGRESS NOTES Assessment 1. Acute on chronic diastolic heart failure. Stress test 2018 without ischemic changes. 2D echocardiogram showed left ventricular ejection fraction of 55%. He is clinically better compensated. Change Lasix to by mouth. 2. Accelerated hypertension; improved but still slightly elevated. Increase Norvasc to 10 mg daily for better control. Continue other medications 3. Diabetes, II: Per IM 4. Dyslipidemia. Continue statin therapy 5. CKD 6. PAFIB; maintaining SR. 7. SSS s/p PPM (Domobtronic) Recent device check with normal function. Telemetry showed ventricular paced rhythm 8. Obstructive sleep apnea. Possible discharge home tomorrow Subjective Feels better today. Denied any chest pain. Dyspnea improved. Objective Vital Signs Date Time Temp Pulse Resp B/P (MAP) Pulse Ox O2 Delivery O2 Flow Rate FiO2 08/19/19 14:16 68 147/81 08/19/19 11:05 97.5 20 99 Room Air Intake and Output 08/19/19 07:00 Intake Total 1920 ml Output Total 1 ml Balance 1919 ml Intake Oral 1920 ml Output Urine Total 1 ml # Voids 2 Abdomen: Soft, No tenderness Heart: Regular rate Extremities: Other (trace) General: Alert HEENT: Atraumatic Lungs: Clear to auscultation Neck: No JVD Review of Relevant I have reviewed the following items bhavya (where applicable) has been applied. Labs Laboratory Tests Test 08/18/19 16:36 08/18/19 20:21 08/19/19 06:26 08/19/19 07:25 Glucose (Fingerstick) 162 mg/dL (70-99) H 133 mg/dL (70-99) H 155 mg/dL (70-99) H White Blood Count 8.2 x10^3/uL (4.0-11.0) Red Blood Count 4.01 x10^6/uL (4.30-5.70) L Hemoglobin 12.4 g/dL (13.0-17.5) L Hematocrit 37.4 % (39.0-53.0) L Mean Corpuscular Volume 93 fL (79-100) Mean Corpuscular Hemoglobin 31 pg (25-35) Mean Corpuscular Hemoglobin Concent 33 g/dL (31-37) Red Cell Distribution Width 15.0 % (11.5-14.5) H Platelet Count 274 x10^3/uL (140-400) Neutrophils (%) (Auto) 63 % (31-73) Lymphocytes (%) (Auto) 22 % (24-48) L Monocytes (%) (Auto) 7 % (0-9) Eosinophils (%) (Auto) 7 % (0-3) H Basophils (%) (Auto) 0 % (0-3) Neutrophils # (Auto) 5.1 x10^3uL (1.8-7.7) Lymphocytes # (Auto) 1.8 x10^3/uL (1.0-4.8) Monocytes # (Auto) 0.6 x10^3/uL (0.0-1.1) Eosinophils # (Auto) 0.6 x10^3/uL (0.0-0.7) Basophils # (Auto) 0.0 x10^3/uL (0.0-0.2) Sodium Level 142 mmol/L (136-145) Potassium Level 4.5 mmol/L (3.5-5.1) Chloride Level 104 mmol/L (98-107) Carbon Dioxide Level 31 mmol/L (21-32) Anion Gap 7 (6-14) Blood Urea Nitrogen 23 mg/dL (8-26) Creatinine 1.4 mg/dL (0.7-1.3) H Estimated GFR (Cockcroft-Gault) 50.5 Glucose Level 145 mg/dL (70-99) H Calcium Level 8.9 mg/dL (8.5-10.1) Test 08/19/19 11:28 Glucose (Fingerstick) 189 mg/dL (70-99) H Medications Current Medications Medications (Trade) Dose Ordered Sig/Tigist Route PRN Reason Start Time Stop Time Status Last Admin Dose Admin Atorvastatin Calcium (Lipitor) 20 mg QHS PO 08/18/19 21:00 08/18/19 21:41 Nitroglycerin (Nitro-Dur 0.1mg) 1 patch DAILY TD 08/19/19 12:00 08/19/19 13:50 DC 08/19/19 12:53 Nitroglycerin (Nitro-Dur 0.2mg) 1 patch DAILY TD 08/19/19 12:00 08/19/19 13:50 DC 08/19/19 12:53 Amlodipine Besylate (Norvasc) 5 mg 1X ONCE PO 08/19/19 14:00 1/4/20 14:02 DC 08/19/19 14:16 Vitals/I & O Vital Signs Date Time Temp Pulse Resp B/P (MAP) Pulse Ox O2 Delivery O2 Flow Rate FiO2 08/19/19 14:16 68 147/81 08/19/19 11:05 97.5 20 99 Room Air I & O 08/18/19 08/18/19 08/19/19 15:00 23:00 07:00 Intake Total 480 ml 960 ml 480 ml Output Total 1 ml Balance 480 ml 960 ml 479 ml VICKIE ACHARYA MD Aug 19, 2019 14:32
[2019-08-19 14:42] VITALS: BP 157/79
[2019-08-19 19:16] VITALS: BP 161/77
[2019-08-19] MEDS: ATORVASTATIN CALCIUM 20 MG TABLET PO SCH (21:30)
[2019-08-19] MEDS: INSULIN GLARGINE SYRINGE. SQ SCH (21:32)
[2019-08-19 22:32] VITALS: BP 155/73
[2019-08-20 05:08] VITALS: BP 149/79
[2019-08-20] MEDS: INSULIN LISPRO 300 UNITS/3 ML VIAL. SQ SCH (07:34)
[2019-08-20] MEDS: metFORMIN 500 MG TABLET PO SCH (07:41)
[2019-08-20] MEDS: PANTOPRAZOLE 40 MG TABLET. PO SCH (07:41)
[2019-08-20] MEDS: CARVEDILOL 12.5 MG TABLET PO SCH (07:41)
[2019-08-20] MEDS: POTASSIUM CHLORIDE 20 MEQ TABLET.ER. PO SCH (07:41)
[2019-08-20] MEDS: ALLOPURINOL 100 MG TABLET. PO SCH (07:42)
[2019-08-20] MEDS: MULTIVITAMIN I-VITE TABLET. PO SCH (07:42)
[2019-08-20] MEDS: ASPIRIN 81 MG TAB.CHEW PO SCH (07:42)
[2019-08-20] MEDS: DIGOXIN 125 MCG TABLET PO SCH (07:42)
[2019-08-20 07:43] VITALS: BP 149/79
[2019-08-20] MEDS: hydrALAZINE 25 MG TABLET PO SCH (07:43)
[2019-08-20] MEDS: LOSARTAN 50 MG TABLET. PO SCH (07:43)
[2019-08-20 08:31] LABS: CALCIUM 8.8 mg/dL (8.5-10.1); CREATININE 1.4 mg/dL (0.7-1.3); GFR 50.5; POTASSIUM 4.3 mmol/L (3.5-5.1)
[2019-08-20 08:56] LABS: BASO % 1 % (0-3); EOS # 0.5 x10^3/uL (0.0-0.7); EOS % 7 % (0-3); HEMATOCRIT 36.6 % (39.0-53.0); LYMPH # 1.8 x10^3/uL (1.0-4.8); LYMPH % 24 % (24-48); MEAN CORPUSCULAR HEMOGLOBIN 31 pg (25-35); MEAN CORPUSCULAR HGB CONC 33 g/dL (31-37); MEAN CORPUSCULAR VOLUME 93 fL (79-100); MONO # 0.6 x10^3/uL (0.0-1.1); MONO % 7 % (0-9); NEUT # 4.7 x10^3uL (1.8-7.7); NEUT % 61 % (31-73); PLATELET COUNT 265 x10^3/uL (140-400); RED BLOOD COUNT 3.94 x10^6/uL (4.30-5.70); RED CELL DISTRIBUTION WIDTH 14.9 % (11.5-14.5); WHITE BLOOD COUNT 7.7 x10^3/uL (4.0-11.0)
[2019-08-20] MEDS ORDERED: amLODIPine BESYLATE 10 MG TABLET PO SCH (09:00)
[2019-08-20] MEDS ORDERED: FUROSEMIDE 40 MG TABLET PO SCH (09:00)
[2019-08-20] MEDS ORDERED: FURO40TA4 PO (09:31)
[2019-08-20] MEDS ORDERED: LOSA50TA86 PO (09:31)
--- NOTE | 2019-08-20 11:24 | NUR ---
Pt discharged home with spouse. VSS. NAD. Denies pain. Discharge instructions and materials discussed with pt and spouse. Questions answered. Diet information given to pt. Pt encouraged to weigh self and check BP daily. Instructions for follow up care discussed with pt. PIV removed last night without complications per report. All belongings accounted for. No falls or injury reported.
--- NOTE | 2019-08-23 12:44 | DS ---
DATE OF DISCHARGE: 08/20/2019 HOSPITAL COURSE: A 68-year-old gentleman came in with severe shortness of breath, severe bronchospasm, unable to get his air. The patient had marked swelling to his legs, +4 of edema. The patient's Cardiology was also consulted and it looked like acute on top of chronic diastolic heart failure, accelerated hypertension, with blood pressures going greater than 180, type 2 diabetes, and morbid obesity. He has paroxysmal atrial fibrillation as well. The patient was diuresed in the usual fashion and made a steady progress with his blood sugars being brought down, chronic kidney disease as well, kpjlxafs-eb-sonmjw protein malnutrition. BNP was 682. The patient's chest x-rays demonstrated nothing acute, but his lungs did show coarse breath sounds, rales, rhonchi, and extreme swelling in the legs and +4 pitting edema. The patient otherwise diuresed nicely with the Lasix and keeping him on a low-sodium diet. The patient made good progress during the rest of his hospitalization and he was discharged home. IMPRESSION: Acute on top of chronic diastolic heart failure, accelerated hypertension, severe peripheral edema, type 2 diabetes, poorly controlled, dyslipidemia, chronic kidney disease, paroxysmal atrial fibrillation, sick sinus syndrome, he is with a pacemaker, obstructive sleep apnea, morbid obesity, vkzezemp-vx-iwsvef protein malnutrition, chronic kidney disease stage 3, and anemia of chronic disease. DISCHARGE DISPOSITION: The patient was discharged home. DISCHARGE INSTRUCTIONS: He will follow up with his vinyl dipper to be on a low-sodium diet and make further evaluation on him as indicated. LONI CHISHOLM MD DR: PABLO/tenisha JOB#: [id number] / [id number]
== END 2019-08-20 11:27 | disposition home or self-care (01) | DRG 291 ==
LOC: 1 SOUTH 11:34
PROVIDERS: ADMIT Family Medicine; ATTEND Family Medicine
DX: I13.0 Hypertensive heart and chronic kidney disease with heart failure and stage 1 through stage 4 chronic kidney disease, or unspecified chronic kidney disease (principal); I50.33 Acute on chronic diastolic (congestive) heart failure; Z68.41 Body mass index [BMI] 40.0-44.9, adult; I16.0 Hypertensive urgency; E11.65 Type 2 diabetes mellitus with hyperglycemia; M10.9 Gout, unspecified; E66.01 Morbid (severe) obesity due to excess calories; E11.22 Type 2 diabetes mellitus with diabetic chronic kidney disease; N18.9 Chronic kidney disease, unspecified; E78.5 Hyperlipidemia, unspecified; G47.33 Obstructive sleep apnea (adult) (pediatric); I49.5 Sick sinus syndrome; I48.0 Paroxysmal atrial fibrillation; Z95.0 Presence of cardiac pacemaker
CPT/HCPCS: 36415; 71046; 80048; 80053; 82550; 82947; 83735; 83880; 84484; 85025; 90471; 90686; 93005; 93306; J1815; J1940; 97530

== ENCOUNTER 2019-12-01 09:52 | Inpatient (IN) | payer MEDICARE ==
[2019-12-01] VITALS (12 sets, daily range): BP systolic 106–154; BP diastolic 47–92
[~2019-12-01] VITALS: Ht 175.3 cm; Wt 130.1 kg
[~2019-12-01 09:52] MED LIST changes: +CARV25TA2 PO; +COLC0.6T34 PO; +FURO40TA4 PO; +HYDR-2763 PO; +INSU100V13 SQ; +LOSA50TA86 PO; +METF500T16 PO; +OMEP-203 PO; +POTASSIUM PO; +SACU1TAB PO; +VIT1CAPS12 PO
[2019-12-01] MEDS ORDERED: DEXTROSE 50% 25 GM / 50ML DISP.SYRIN. IV PRN (11:15)
[2019-12-01] MEDS ORDERED: ONDANSETRON PF 4 MG/2 ML VIAL. IVP PRN (11:15)
[2019-12-01] MEDS: IV NORMAL SALINE 1,000ML 1,000 ML IV SCH ×2 (11:27→14:00)
[2019-12-01] MEDS: PANTOPRAZOLE IV 40 MG VIAL. IVP SCH (11:27)
[2019-12-01 11:46] LABS: ALBUMIN 3.4 g/dL (3.4-5.0); CALCIUM 9.3 mg/dL (8.5-10.1); CREATININE 4.2 mg/dL (0.7-1.3); GFR 14.2; TOTAL BILIRUBIN 0.1 mg/dL (0.2-1.0); TOTAL PROTEIN 6.8 g/dL (6.4-8.2)
[2019-12-01] MEDS: INSULIN LISPRO 300 UNITS/3 ML VIAL. SQ SCH ×2 (12:00→17:00)
[2019-12-01] MEDS ORDERED: IV NORMAL SALINE 1,000ML 1,000 ML IV ONE ×2 (12:00→12:30)
[2019-12-01 12:12] LABS: BASO # 0.1 x10^3/uL (0.0-0.2); BASO % 1 % (0-3); EOS # 0.8 x10^3/uL (0.0-0.7); EOS % 7 % (0-3); HEMATOCRIT 36.3 % (39.0-53.0); HEMOGLOBIN 11.4 g/dL (13.0-17.5); LYMPH # 2.2 x10^3/uL (1.0-4.8); LYMPH % 19 % (24-48); MEAN CORPUSCULAR HEMOGLOBIN 30 pg (25-35); MEAN CORPUSCULAR HGB CONC 31 g/dL (31-37); MEAN CORPUSCULAR VOLUME 96 fL (79-100); MONO # 0.6 x10^3/uL (0.0-1.1); MONO % 6 % (0-9); NEUT # 7.7 x10^3uL (1.8-7.7); NEUT % 68 % (31-73); PLATELET COUNT 230 x10^3/uL (140-400); RED BLOOD COUNT 3.79 x10^6/uL (4.30-5.70); RED CELL DISTRIBUTION WIDTH 16.2 % (11.5-14.5); WHITE BLOOD COUNT 11.4 x10^3/uL (4.0-11.0)
[2019-12-01] MEDS ORDERED: GABA-586 PO (12:21)
[2019-12-01] MEDS ORDERED: CYAN25003 SL (12:21)
[2019-12-01] MEDS ORDERED: FERR-36 PO (12:21)
[2019-12-01] MEDS ORDERED: CALCIUM GLUCONATE 1,000 MG in IV NORMAL SALINE 100ML 100 ML IV ONE ×2 (12:30→15:00)
--- NOTE | 2019-12-01 12:35 | RAD ---
Abdominal and Pelvis CT, Without Contrast: History: Abdominal pain Comparison: September 07, 2014. Procedure: Axial images are obtained of the abdomen and pelvis, without IV or oral contrast. Oral Contrast: No Findings: Evaluation of solid organs is limited without contrast. There is a suture line suggesting removal of the hepatic flexure the colon. The appendix is normal. There is a small fat-containing umbilical hernia. The prostate is mildly enlarged. Liver: Normal. Spleen: Normal. Pancreas: Normal. Adrenal Glands: There is a 1 cm adrenal adenoma in the medial limb of the left adrenal unchanged and incidental Kidneys: Normal. There is no free air or free fluid. There is no lymphadenopathy. The urinary bladder appears normal. There is no pericolonic inflammation identified. Impression: No acute findings. End impression PQRS Compliance Statement: One or more of the following individualized dose reduction techniques were utilized for this examination: 1. Automated exposure control 2. Adjustment of the mA and/or kV according to patient size 3. Use of iterative reconstruction technique Electronically signed by: Beni Campos III, MD (12/01/2019 12:32 PM) [id number]
[2019-12-01] MEDS ORDERED: INSULIN REGULAR 100 UNIT/ML 3ML VIAL. IV ONE ×2 (12:45→15:00)
[2019-12-01] MEDS ORDERED: DEXTROSE 50% 25 GM / 50ML DISP.SYRIN. IV ONE ×2 (12:45→15:00)
[2019-12-01 13:04] LABS: BACTERIA,URINE 0 /HPF (0-FEW); BILIRUBIN,URINE NEG (NEG); CLARITY,URINE CLEAR; COLOR,URINE YELLOW; GLUCOSE,URINE NEG (NEG); NITRITE,URINE NEG (NEG); RBC,URINE OCC /HPF (0-2); UROBILINOGEN,URINE 0.2 mg/dL (0.2 mg/dL); WBC,URINE OCC /HPF (0-4)
[2019-12-01 13:05] LABS: HYALINE CASTS, URINE OCC /HPF; SQUAMOUS EPITHELIAL CELL,UR MOD /LPF
[2019-12-01 13:39] LABS: BGAS PH 7.17 (7.35-7.46)
[2019-12-01] MEDS ORDERED: SODIUM BICARB ADULT 8.4% 50 MEQ/50 ML DISP.SYRIN. IV ONE (13:45)
[2019-12-01] MEDS ORDERED: NORMAL SALINE IV SCH ×3 (13:50→22:00)
[2019-12-01] MEDS ORDERED: SODIUM BICARBONATE IVF IV SCH ×4 (13:50→22:00)
[2019-12-01] MEDS ORDERED: 1/2 NORMAL SALINE IV SCH (14:00)
[2019-12-01 14:13] LABS: ALBUMIN/GLOBULIN RATIO 0.9 (1.0-1.7); CREATININE 3.8 mg/dL (0.7-1.3); GFR 15.9; TOTAL BILIRUBIN 0.1 mg/dL (0.2-1.0); TOTAL PROTEIN 6.5 g/dL (6.4-8.2)
[2019-12-01 14:16] LABS: POTASSIUM 6.7 mmol/L (3.5-5.1)
--- NOTE | 2019-12-01 14:22 | RAD ---
CHEST AP ONLY History: Shortness of breath Comparison: August 18, 2019 Findings: Single view of the chest is submitted. Exam is limited due to beam attenuation by the soft tissues and lesser degree of inspiration for this exam. Pericardial cardiac silhouette appears more enlarged on this exam although could be accentuated by lesser degree of inspiration and technique. There is again degree of elevation of the right hemidiaphragm. There is again left electronic cardiac device. There is no pneumothorax. Evaluation for infiltrate at the left lung base is very limited. There may be mild hazy airspace opacity of the mid left hemithorax. Impression: 1. Exam is limited as stated. There may be mild infiltrate of the left hemithorax, also cannot accurately evaluate the left lung base. Pericardial cardiac silhouette appears more enlarged on this exam. Electronically signed by: Feroz Ott MD (12/01/2019 2:19 PM) [id number]
[2019-12-01] MEDS ORDERED: FUROSEMIDE 20 MG/2 ML VIAL IVP ONE (15:30)
[2019-12-01] MEDS ORDERED: hydrALAZINE 20 MG/ML VIAL. IV PRN (15:45)
[2019-12-01] MEDS: ALBUTEROL SULFATE 2.5 MG/3 ML NEBU. NEB SCH ×2 (16:00→20:00)
[2019-12-01 16:34] LABS: HEMATOCRIT 34.8 % (39.0-53.0); RED BLOOD COUNT 3.66 x10^6/uL (4.30-5.70); WHITE BLOOD COUNT 9.2 x10^3/uL (4.0-11.0)
[2019-12-01 16:46] LABS: ALBUMIN 3.1 g/dL (3.4-5.0); ALBUMIN/GLOBULIN RATIO 0.9 (1.0-1.7); CALCIUM 9.5 mg/dL (8.5-10.1); CREATININE 3.7 mg/dL (0.7-1.3); GFR 16.4; POTASSIUM 5.5 mmol/L (3.5-5.1); TOTAL BILIRUBIN 0.1 mg/dL (0.2-1.0); TOTAL PROTEIN 6.7 g/dL (6.4-8.2)
[2019-12-01] MEDS: CARVEDILOL 12.5 MG TABLET PO SCH (17:00)
[2019-12-02] VITALS (12 sets, daily range): BP systolic 134–167; BP diastolic 51–96
[2019-12-02 01:07] LABS: HEMOGLOBIN A1C 8.4 % (4.8-5.6)
[2019-12-02] MEDS: ALBUTEROL SULFATE 2.5 MG/3 ML NEBU. NEB SCH ×4 (05:52→20:32)
[2019-12-02 06:04] LABS: BASO % 1 % (0-3); EOS # 0.6 x10^3/uL (0.0-0.7); EOS % 8 % (0-3); HEMATOCRIT 35.4 % (39.0-53.0); HEMOGLOBIN 11.4 g/dL (13.0-17.5); LYMPH # 1.8 x10^3/uL (1.0-4.8); LYMPH % 22 % (24-48); MEAN CORPUSCULAR HEMOGLOBIN 30 pg (25-35); MEAN CORPUSCULAR HGB CONC 32 g/dL (31-37); MEAN CORPUSCULAR VOLUME 94 fL (79-100); MONO # 0.6 x10^3/uL (0.0-1.1); MONO % 7 % (0-9); NEUT # 5.3 x10^3uL (1.8-7.7); NEUT % 63 % (31-73); PLATELET COUNT 234 x10^3/uL (140-400); RED BLOOD COUNT 3.76 x10^6/uL (4.30-5.70); RED CELL DISTRIBUTION WIDTH 16.1 % (11.5-14.5); WHITE BLOOD COUNT 8.3 x10^3/uL (4.0-11.0)
[2019-12-02 06:20] LABS: CALCIUM 9.4 mg/dL (8.5-10.1); CREATININE 2.8 mg/dL (0.7-1.3); GFR 22.6; POTASSIUM 5.6 mmol/L (3.5-5.1)
[2019-12-02] MEDS: INSULIN LISPRO 300 UNITS/3 ML VIAL. SQ SCH ×3 (08:07→17:24)
[2019-12-02] MEDS: CHOLESTYRAMINE/ASPARTAME 4 GM PACKET PO SCH (08:07)
[2019-12-02] MEDS: CARVEDILOL 12.5 MG TABLET PO SCH ×2 (08:07→17:21)
[2019-12-02] MEDS: PANTOPRAZOLE IV 40 MG VIAL. IVP SCH (08:07)
--- NOTE | 2019-12-02 12:38 | PN ---
DATE: SUBJECTIVE: A 69-year-old male admitted with hyperkalemia, dehydration and metabolic acidosis. The patient is resting fairly comfortably, making fairly good progress. He has also been seen by Cardiology. He was in the ICU status and he will be downgraded to a regular bed today. OBJECTIVE: VITAL SIGNS: Blood pressure 146/93, respiratory rate 14, pulse 73, afebrile. GENERAL: The patient is alert and oriented, still a little bit groggy. LUNGS: Diminished, but clear. CARDIOVASCULAR: Stable. ABDOMEN: Soft, nontender. No rebounding or guarding. Positive bowel sounds. The patient has not had any further diarrhea since he has been in the rehab previous 6 weeks. LABORATORY DATA: The patient's potassium has come down from as high as an 8, down this morning to 5.6 with a BUN and creatinine of 96 and 2.8. The patient's blood sugars are stable. He is a diabetic. He has morbid obesity. IMPRESSION: As noted; therefore, severe hyperkalemia, diarrhea, dehydration, metabolic acidosis, on bicarbonate drip, moderate protein malnutrition, chronic kidney disease stage 3, type 2 diabetes. PLAN: The patient is to continue on his bicarbonate drip, advance diet, monitor him, discontinue Tam and make further assessment in the morning with labs are returned. LONI CHISHOLM MD DR: PABLO/tenisha JOB#: [id number] / [id number]
[2019-12-02 14:04] LABS: BGAS PH 7.32 (7.35-7.46)
--- NOTE | 2019-12-02 14:51 | CONS ---
DATE OF CONSULTATION: 12/02/2019 REASON FOR CONSULTATION: Diastolic heart failure. CONSULTING PHYSICIAN: Dr. Carranza. HISTORY OF PRESENT ILLNESS: The patient is a 69-year-old man who presented with significant GI symptoms to the hospital and he is currently being ruled out for coronavirus issues. He has been in his usual state of health until recently when this occurred. He also presented with renal failure in the setting of continuing his diuretics, which he was started on due to diastolic heart failure in August and was admitted. Currently, the patient denies any chest pain, dyspnea, orthopnea or PND. No syncope or palpitations. PAST MEDICAL HISTORY: 1. Diastolic heart failure. 2. Chronic kidney disease with a last known creatinine of 1.4. 3. Hypertension. 4. Diabetes. 5. Dyslipidemia. 6. Obstructive sleep apnea. ALLERGIES: No known drug allergies. CURRENT CARDIOVASCULAR MEDICATIONS: 1. Carvedilol. 2. Hydralazine. REVIEW OF SYSTEMS: Negative for 10 out of 14 systems reviewed, unless otherwise mentioned above in HPI. SOCIAL HISTORY: No alcohol, tobacco or illicit drug use. PHYSICAL EXAMINATION: VITAL SIGNS: Afebrile. GENERAL: Morbidly obese patient, in no acute distress. HEAD AND NECK: Unremarkable. CARDIAC: Distant heart sounds, but regular. LUNGS: Clear. ABDOMEN: Obese. EXTREMITIES: 1-2+ lower extremity edema. NEUROLOGIC: No focal deficits. CURRENT DIAGNOSTIC STUDIES: With a hemoglobin of 11.0 and platelet count of 234. Blood gas is suggestive of acidemia and hypoxia. Creatinine 2.8, which is improved from admission at 4.2. Chest x-ray is limited with possible infiltrates. Abdominal pelvis CT was performed, no acute findings were noted. Echocardiogram performed in August 2019 reveals normal LV function. EKG at last admission was unremarkable. ASSESSMENT: 1. Acute renal failure in the setting of dehydration, nausea and GI symptoms suggestive of either viral gastroenteritis or possible underlying coronavirus issues. 2. Diastolic heart failure with preserved LV function in August 2019. 3. History of sick sinus syndrome, status post dual chamber pacemaker. RECOMMENDATIONS: Okay with fluid hydration as necessary to improve his renal function. At this point, no further cardiovascular testing is necessary. He can be discharged on carvedilol, hydralazine and Imdur therapy; from a blood pressure perspective, to avoid any RICKY inhibitors to cause any further issues. Supportive care. Please call with any further questions. GOPAL LLOYD MD DR: QUYEN/tenisha JOB#: [id number] / [id number]
[2019-12-02] MEDS ORDERED: 1/2 NORMAL SALINE IV ONE (15:00)
[2019-12-02] MEDS ORDERED: SODIUM BICARBONATE IVF IV ONE (15:00)
[2019-12-02 17:29] LABS: BASO # 0.1 x10^3/uL (0.0-0.2); BASO % 1 % (0-3); EOS # 0.6 x10^3/uL (0.0-0.7); EOS % 6 % (0-3); HEMATOCRIT 36.5 % (39.0-53.0); HEMOGLOBIN 11.6 g/dL (13.0-17.5); LYMPH # 1.8 x10^3/uL (1.0-4.8); LYMPH % 19 % (24-48); MEAN CORPUSCULAR HEMOGLOBIN 30 pg (25-35); MEAN CORPUSCULAR HGB CONC 32 g/dL (31-37); MEAN CORPUSCULAR VOLUME 95 fL (79-100); MONO # 0.7 x10^3/uL (0.0-1.1); MONO % 7 % (0-9); NEUT # 6.4 x10^3uL (1.8-7.7); NEUT % 67 % (31-73); PLATELET COUNT 235 x10^3/uL (140-400); RED BLOOD COUNT 3.84 x10^6/uL (4.30-5.70); RED CELL DISTRIBUTION WIDTH 16.4 % (11.5-14.5); WHITE BLOOD COUNT 9.5 x10^3/uL (4.0-11.0)
[2019-12-02] MEDS ORDERED: IV 1/2 NORMAL SALINE 1,000 ML IV SCH (20:00)
[2019-12-03] MEDS: ALBUTEROL SULFATE 2.5 MG/3 ML NEBU. NEB SCH ×2 (05:16→09:24)
[2019-12-03 05:32] VITALS: BP 151/79
[2019-12-03 06:29] LABS: BASO # 0.1 x10^3/uL (0.0-0.2); BASO % 1 % (0-3); EOS # 0.6 x10^3/uL (0.0-0.7); EOS % 7 % (0-3); HEMATOCRIT 33.5 % (39.0-53.0); HEMOGLOBIN 10.8 g/dL (13.0-17.5); LYMPH # 1.7 x10^3/uL (1.0-4.8); LYMPH % 22 % (24-48); MEAN CORPUSCULAR HEMOGLOBIN 30 pg (25-35); MEAN CORPUSCULAR HGB CONC 32 g/dL (31-37); MEAN CORPUSCULAR VOLUME 93 fL (79-100); MONO # 0.5 x10^3/uL (0.0-1.1); MONO % 7 % (0-9); NEUT # 4.9 x10^3uL (1.8-7.7); NEUT % 64 % (31-73); PLATELET COUNT 233 x10^3/uL (140-400); RED BLOOD COUNT 3.59 x10^6/uL (4.30-5.70); RED CELL DISTRIBUTION WIDTH 16.1 % (11.5-14.5); WHITE BLOOD COUNT 7.6 x10^3/uL (4.0-11.0)
[2019-12-03 06:44] LABS: CALCIUM 9.4 mg/dL (8.5-10.1); GFR 33.4; POTASSIUM 4.9 mmol/L (3.5-5.1)
[2019-12-03] MEDS: PANTOPRAZOLE IV 40 MG VIAL. IVP SCH (07:08)
[2019-12-03] MEDS: CARVEDILOL 12.5 MG TABLET PO SCH (07:08)
[2019-12-03] MEDS: CHOLESTYRAMINE/ASPARTAME 4 GM PACKET PO SCH (07:09)
[2019-12-03] MEDS: INSULIN LISPRO 300 UNITS/3 ML VIAL. SQ SCH (07:12)
[2019-12-03 09:26] VITALS: BP 121/66
--- NOTE | 2019-12-07 07:53 | EKG ---
[address] [address] Test Date: 2019-12-01 Test Time: 11:16:00 Pat Name: CHEYANNE FELIX Department: Room: 105 A Gender: [employer]: : 1950 Requested By: LONI CHISHOLM Order Number: [id number] Reading MD: Russell Lam Measurements Intervals [place] Rate: P: ME: QRS: QRSD: T: QT: QTc: Interpretive Statements Compared to ECG 08/17/2019 12:22:09 No significant changes Electronically Signed On 12-07-2019 8:03:00 CDT by Russell Lam
== END 2019-12-03 12:00 | disposition home or self-care (01) | DRG 391 ==
LOC: 1 SOUTH 09:52
PROVIDERS: ADMIT Family Medicine; ATTEND Family Medicine
DX: A08.4 Viral intestinal infection, unspecified (principal); N17.0 Acute kidney failure with tubular necrosis; E44.0 Moderate protein-calorie malnutrition; E87.2 Acidosis; I13.0 Hypertensive heart and chronic kidney disease with heart failure and stage 1 through stage 4 chronic kidney disease, or unspecified chronic kidney disease; I50.32 Chronic diastolic (congestive) heart failure; Z68.41 Body mass index [BMI] 40.0-44.9, adult; E11.22 Type 2 diabetes mellitus with diabetic chronic kidney disease; E11.42 Type 2 diabetes mellitus with diabetic polyneuropathy; E78.5 Hyperlipidemia, unspecified; E86.0 Dehydration; E87.5 Hyperkalemia; Z95.0 Presence of cardiac pacemaker; Z79.899 Other long term (current) drug therapy; N18.3 Chronic kidney disease, stage 3 (moderate); Z79.4 Long term (current) use of insulin; M19.90 Unspecified osteoarthritis, unspecified site; E66.01 Morbid (severe) obesity due to excess calories; G47.33 Obstructive sleep apnea (adult) (pediatric); I49.5 Sick sinus syndrome; Z20.828 Contact with and (suspected) exposure to other viral communicable diseases
CPT/HCPCS: 36415; 36600; 71045; 74176; 80048; 80053; 81001; 82550; 82803; 82947; 83036; 84145; 84484; 85025; 85027; 85379; 87045; 87493; 87635; 93005; 94640; C9113; J0610; J1815; J7030; J7613

== ENCOUNTER 2020-05-23 22:46 | Inpatient (IN) | payer MEDICARE ==
[~2020-05-23] VITALS: Ht 175.3 cm; Wt 143.5 kg
[~2020-05-23 22:46] MED LIST changes: +CYAN25003 SL; +FERR-36 PO; +GABA-586 PO
[2020-05-23 23:35] LABS: BASO % 0 % (0-3); EOS # 0.3 x10^3/uL (0.0-0.7); EOS % 3 % (0-3); HEMATOCRIT 38.1 % (39.0-53.0); HEMOGLOBIN 12.2 g/dL (13.0-17.5); LYMPH # 2.2 x10^3/uL (1.0-4.8); LYMPH % 24 % (24-48); MEAN CORPUSCULAR HEMOGLOBIN 30 pg (25-35); MEAN CORPUSCULAR HGB CONC 32 g/dL (31-37); MEAN CORPUSCULAR VOLUME 93 fL (79-100); MONO # 0.6 x10^3/uL (0.0-1.1); MONO % 6 % (0-9); NEUT # 6.1 x10^3uL (1.8-7.7); NEUT % 66 % (31-73); PLATELET COUNT 251 x10^3/uL (140-400); RED BLOOD COUNT 4.09 x10^6/uL (4.30-5.70); RED CELL DISTRIBUTION WIDTH 15.6 % (11.5-14.5); WHITE BLOOD COUNT 9.2 x10^3/uL (4.0-11.0)
[2020-05-23 23:38] LABS: CALCIUM 8.8 mg/dL (8.5-10.1); CREATININE 1.7 mg/dL (0.7-1.3); GFR 40.3; POTASSIUM 3.8 mmol/L (3.5-5.1)
[2020-05-23] MEDS ORDERED: ASPIRIN CHEWABLE 81 MG TABLET. PO ONE (23:45)
[2020-05-23] MEDS ORDERED: ENOXAPARIN ** NOTE DOSE ** SYRINGE SQ ONE (23:45)
[2020-05-23] MEDS ORDERED: FUROSEMIDE 40 MG/4 ML VIAL IVP ONE (23:45)
--- NOTE | 2020-05-23 23:46 | EKG ---
[address] [address] Test Date: 2020-05-23 Test Time: 22:48:26 Pat Name: CHEYANNE FELIX Department: Room: Gender: M [employer]: : 1950 Requested By: APOLLO MARTINEZ Order Number: [id number] Reading MD: Measurements Intervals [place] Rate: 84 P: 47 FL: 174 QRS: -67 QRSD: 174 T: 85 QT: 426 QTc: 507 Interpretive Statements SINUS RHYTHM ABNORMAL LEFT AXIS DEVIATION NON SPECIFIC INTRAVENTRICULAR BLOCK QRS(T) CONTOUR ABNORMALITY CONSIDER ANTEROSEPTAL MYOCARDIAL DAMAGE ABNORMAL ECG RI6.02 No previous ECG available for comparison
--- NOTE | 2020-05-23 23:51 | PHYS DOC ---
Past History Past Medical History: A-Fib, Arthritis, CAD, CHF, Constipation, Diabetes, High Cholesterol, Hypertension Past Surgical History: Cancer Surgery, Pacemaker Alcohol Use: Rarely Drug Use: None General Adult EDM: Chief Complaint: SHORTNESS OF BREATH HPI: HPI: ".. I really put on the wt... I was 304.. at lst of week.. but now I am 321.. and I am a lot more short of breath.. I ve been taking my Lasix..." Patient is a 69 year old male who presents with above hx and complaints of dyspnea with weight gain. Pt. reports + - 20 lbs the last 4- 5 days. Patient states he has had a history of CHF, retention of fluids in the past. Has a history of A. fib, coronary artery disease, pacemaker placement, diabetes, morbid obesity, sleep apnea, colon cancer, hemorrhoids, anemia, constipation, renal insufficiency, anemia, sick sinus syndrome, deconditioning. Pt. reports compliance with his use of Lasix for his chronic heart failure. Patient denies compliance with salt intake. Pt. Pt. follows with Dr. Chisholm. Patient denies any specific ill contacts. No recent travel outside the [place] area. Has followed with cardiology at [place] Review of Systems: Review of Systems: Constitutional: Denies fever or chills Eyes: Denies change in visual acuity HENT: Denies nasal congestion or sore throat Respiratory: Complaints of cough and shortness of breath Cardiovascular: Denies chest pain or edema GI: Denies abdominal pain, nausea, vomiting, bloody stools or diarrhea : Denies dysuria Musculoskeletal: Denies back pain or joint pain Integument: Denies rash Neurologic: Denies headache, focal weakness or sensory changes Endocrine: Denies polyuria or polydipsia Lymphatic: Denies swollen glands Psychiatric: Denies depression or anxiety Heart Score: HEART Score for Chest Pain: HEART Score for Chest Pain Response (Comments) Value History Moderately Suspicious 1 ECG Nonspecific Repolarizatio 1 Age > 65 2 Risk Factors 1 or 2 Risk Factors 1 Troponin < Normal Limit 0 Total 5 Risk Factors: Risk Factors: DM, Current or recent (<one month) smoker, HTN, HLP, family history of CAD, obesity. Risk Scores: Score 0 - 3: 2.5% MACE over next 6 weeks - Discharge Home Score 4 - 6: 20.3% MACE over next 6 weeks - Admit for Clinical Observation Score 7 - 10: 72.7% MACE over next 6 weeks - Early Invasive Strategies Family History: Family History: Noncontributory to presentation Current Medications: Current Meds: Current Medications Medications (Trade) Dose Ordered Sig/Tigist Start Time Stop Time Status Last Admin Dose Admin Aspirin (Aspirin Chewable) 324 mg 1X ONCE 05/23/20 23:45 05/23/20 23:46 DC 05/23/20 23:38 324 MG Enoxaparin Sodium (Lovenox 150mg Syringe) 140 mg 1X ONCE 05/23/20 23:45 05/23/20 23:46 DC 05/23/20 23:41 140 MG Furosemide (Lasix) 40 mg 1X ONCE 05/23/20 23:45 05/23/20 23:46 DC 05/23/20 23:39 40 MG Allergies: Allergies: Allergies Coded Allergies Type Severity Reaction Last Updated Verified No Known Drug Allergies 09/07/14 No Physical Exam: PE: Constitutional:in acute distress, non-toxic appearance. [] HENT: Normocephalic, atraumatic, bilateral external ears normal, oropharynx moist, no oral exudates, nose normal. [] Eyes: PERRLA, EOMI, conjunctiva normal, no discharge. [] Neck: Normal range of motion, no tenderness, supple, no stridor. [] Cardiovascular:Heart rate regular rhythm, no murmur monitor shows a paced rhythm with intraventricular block Lungs & Thorax: Bilateral breath sounds clear to auscultation [] Abdomen: Bowel sounds normal, soft, no tenderness, no masses, no pulsatile masses. Large abdomen scar history of colectomy Skin: Warm, dry, no erythema, no rash. [] Back: No tenderness, no CVA tenderness. [] Extremities: No tenderness, no cyanosis, no clubbing, ROM intact, +2 pitting edema. [] No cording appreciated. Lt shoulder scar. Neurologic: Alert and oriented X 3, normal motor function, normal sensory function, no focal deficits noted. [] Psychologic: Affect anxious, judgement normal, mood normal. [] Current Patient Data: Labs: Laboratory Tests Test 05/23/20 22:55 05/23/20 23:15 Sodium Level 142 mmol/L (136-145) Potassium Level 3.8 mmol/L (3.5-5.1) Chloride Level 104 mmol/L (98-107) Carbon Dioxide Level 28 mmol/L (21-32) Anion Gap 10 (6-14) Blood Urea Nitrogen 33 mg/dL (8-26) H Creatinine 1.7 mg/dL (0.7-1.3) H Estimated GFR (Cockcroft-Gault) 40.3 Glucose Level 289 mg/dL (70-99) H Lactic Acid Level 2.3 mmol/L (0.4-2.0) H Calcium Level 8.8 mg/dL (8.5-10.1) Magnesium Level Pending Total Bilirubin Pending Direct Bilirubin Pending Aspartate Amino Transferase (AST) Pending Alanine Aminotransferase (ALT) Pending Alkaline Phosphatase Pending Creatine Kinase Pending Troponin I Quantitative < 0.017 ng/mL (0-0.055) TA-Byf-G-Type Natriuretic Peptide Pending Total Protein Pending Albumin Pending Lipase Pending White Blood Count 9.2 x10^3/uL (4.0-11.0) Red Blood Count 4.09 x10^6/uL (4.30-5.70) L Hemoglobin 12.2 g/dL (13.0-17.5) L Hematocrit 38.1 % (39.0-53.0) L Mean Corpuscular Volume 93 fL (79-100) Mean Corpuscular Hemoglobin 30 pg (25-35) Mean Corpuscular Hemoglobin Concent 32 g/dL (31-37) Red Cell Distribution Width 15.6 % (11.5-14.5) H Platelet Count 251 x10^3/uL (140-400) Neutrophils (%) (Auto) 66 % (31-73) Lymphocytes (%) (Auto) 24 % (24-48) Monocytes (%) (Auto) 6 % (0-9) Eosinophils (%) (Auto) 3 % (0-3) Basophils (%) (Auto) 0 % (0-3) Neutrophils # (Auto) 6.1 x10^3uL (1.8-7.7) Lymphocytes # (Auto) 2.2 x10^3/uL (1.0-4.8) Monocytes # (Auto) 0.6 x10^3/uL (0.0-1.1) Eosinophils # (Auto) 0.3 x10^3/uL (0.0-0.7) Basophils # (Auto) 0.0 x10^3/uL (0.0-0.2) Vital Signs: Vital Signs Date Time Temp Pulse Resp B/P (MAP) Pulse Ox O2 Delivery O2 Flow Rate FiO2 05/23/20 22:49 98.0 82 24 187/89 (121) 93 Room Air EKG: EKG: My interpretation of EKG shows a paced rhythm with interventricular block []. Left axis deviation. As compared to prior EKGs on file that shows a marked change Radiology/Procedures: Radiology/Procedures: [][address] [address] IMAGING REPORT Signed PATIENT: CHEYANNE FELIX DACCOUNT: [id number] : 1950 LOCATION: ER AGE: 69 SEX: M EXAM STATUS: PRE ER ORD. PHYSICIAN: APOLLO MARTINEZ MD REASON: dyspnea PROCEDURE: PORTABLE CHEST 1V Exam: Chest one INDICATION: Dyspnea TECHNIQUE: Frontal view of the chest Comparisons: 12/01/2019 FINDINGS: Pacer with leads terminating the right atrium and ventricle. Heart is mildly enlarged. Pulmonary vessels are within normal limits. Hazy opacities at the perihilar lungs bilaterally. No pleural effusion. IMPRESSION: Findings related to mild pulmonary edema. Electronically signed by: Eldon Mckinney MD (05/23/2020 11:57 PM) [facility] DICTATED AND SIGNED BY: ELDON MCKINNEY MD DATE: 05/23/20 4725 CC: LONI CHISHOLM MD; APOLLO MARTINEZ MD ~ Course & Med Decision Making: Course & Med Decision Making Pertinent Labs and Imaging studies reviewed. (See chart for details) Discussed presentation, testing and tx. plan with Dr. Chisholm. Will attempt gentle diuresis. Will not fluid load because of obvious findings of diastolic dysfunction. Plan admit with cardiology consult. Not currently on anticoagulants. Unlikely pneumonia, but will cover for infectious cause of infiltrates that appear to be pulmonary edema. Impression: 1. Acute on Chronic Respiratory Failure 2. Pulmonary Edema 3. CHF Acute on Chronic diastolic dysfunction-BNP 1306 4, Elevated lactic acid 2.3 5. Anemia hemoglobin 12.2 6. Diabetes glucose 289 7. Acute on chronic renal insufficiency creatinine 1.7 BUN 33 8. Elevated d-dimer 0.98 [] Dragon Disclaimer: Dragon Disclaimer: This electronic medical record was generated, in whole or in part, using a voice recognition dictation system. Departure Departure: Impression: Primary Impression: Congestive heart failure with left ventricular diastolic dysfu... Disposition: 01 DC HOME SELF CARE/HOMELESS Condition: STABLE Referrals: LONI CHISHOLM MD (PCP) Patient Instructions: Pulmonary Edema, [id number] Dragon Disclaimer This chart was dictated in whole or in part using Voice Recognition software in a busy, high-work load, and often noisy Emergency Department environment. It may contain unintended and wholly unrecognized errors or omissions. Dragon Disclaimer This chart was dictated in whole or in part using Voice Recognition software in a busy, high-work load, and often noisy Emergency Department environment. It may contain unintended and wholly unrecognized errors or omissions. APOLLO MARTINEZ MD May 23, 2020 23:51
[2020-05-23 23:52] LABS: ALBUMIN 3.2 g/dL (3.4-5.0); DIRECT BILIRUBIN 0.1 mg/dL (0.0-0.2); MAGNESIUM 2.1 mg/dL (1.8-2.4); TOTAL BILIRUBIN 0.2 mg/dL (0.2-1.0); TOTAL PROTEIN 6.8 g/dL (6.4-8.2)
--- NOTE | 2020-05-23 23:59 | RAD ---
Exam: Chest one INDICATION: Dyspnea TECHNIQUE: Frontal view of the chest Comparisons: 12/01/2019 FINDINGS: Pacer with leads terminating the right atrium and ventricle. Heart is mildly enlarged. Pulmonary vessels are within normal limits. Hazy opacities at the perihilar lungs bilaterally. No pleural effusion. IMPRESSION: Findings related to mild pulmonary edema. Electronically signed by: Eldon Morfin MD (05/23/2020 11:57 PM) ELIF
[2020-05-24] VITALS (7 sets, daily range): BP systolic 127–194; BP diastolic 70–97
[2020-05-24] MEDS ORDERED: ONDANSETRON PF 4 MG/2 ML VIAL. IVP PRN (00:30)
[2020-05-24] MEDS ORDERED: ACETAMINOPHEN 325 MG TABLET PO PRN (00:30)
[2020-05-24] MEDS ORDERED: ANTI-COAG MONITOR BY PHARMACY. MC PRN (00:45)
[2020-05-24] MEDS ORDERED: cefTRIAXone SODIUM 1 GM VIAL ONE ×2 (00:57→01:19)
[2020-05-24] MEDS ORDERED: IV NORMAL SALINE 50ML 50 ML ONE ×2 (00:57→01:19)
[2020-05-24] MEDS ORDERED: AZITHROMYCIN 250 MG TABLET. PO ONE (01:00)
[2020-05-24] MEDS: NITROGLYCERIN OINT 1 GM PACKET. TP SCH ×4 (01:21→20:44)
[2020-05-24 01:38] LABS: BILIRUBIN,URINE NEG (NEG); CLARITY,URINE CLEAR; COLOR,URINE YELLOW; GLUCOSE,URINE 250 mg/dL (NEG)
[2020-05-24 01:39] LABS: BACTERIA,URINE 0 /HPF (0-FEW); HYALINE CASTS, URINE OCC /HPF; NITRITE,URINE NEG (NEG); SQUAMOUS EPITHELIAL CELL,UR OCC /LPF; UROBILINOGEN,URINE 0.2 mg/dL (0.2 mg/dL)
[2020-05-24 01:52] LABS: BARBITURATES NEG (NEG); BENZODIAZEPINES NEG (NEG); CANNABINOIDS NEG (NEG); COCAINE NEG (NEG); METHADONE NEG (NEG); OPIATES NEG (NEG); PHENCYCLIDINE NEG (NEG)
[2020-05-24 01:54] LABS: AMPHETAMINE/METHAMPHETAMINE NEG (NEG)
[2020-05-24 02:11] LABS: BGAS PH 7.37 (7.35-7.46)
[2020-05-24] MEDS ORDERED: INSU100I27 SQ (03:31)
[2020-05-24] MEDS ORDERED: LOSA100T14 PO (03:31)
[2020-05-24] MEDS ORDERED: COLC0.6T42 PO (03:31)
[2020-05-24] MEDS ORDERED: SIMV40TA18 PO (03:31)
[2020-05-24] MEDS ORDERED: ALLO300T PO (03:31)
[2020-05-24] MEDS ORDERED: INSU100V SQ (03:31)
[2020-05-24] MEDS ORDERED: IPRATRPIUM/ALBUTEROL 0.5/2.5MG 3 ML NEBU. ONE (05:09)
[2020-05-24] MEDS ORDERED: HYDROcodone/APAP 7.5/325MG 1 TAB TABLET PO PRN (07:00)
[2020-05-24] MEDS ORDERED: COLCHICINE 0.6 MG TABLET. PO PRN (07:00)
--- NOTE | 2020-05-24 07:56 | PDOC2 ---
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 Jacinto SOURCE Source: Chart review, Patient HPI History of Present Illness This is a 69 yo male who presented secondary to weight gain, fluid retention. Reports nearly 20# weight gain in the last 2 weeks. Reports compliance with diuretic therapy. PAST MEDICAL HISTORY Past Medical History 1. Diastolic heart failure and significant morbid obesity. 2. CKD 3. Hypertension. 4. Diabetes. 5. Dyslipidemia. 6. Obstructive sleep apnea. 7. SSS s/p PPM 8. AFIB PAST SURGICAL HISTORY Past Surgical History: Pacemaker, Colectomy FAMILY HISTORY Family History: Heart Disease SOCIAL HISTORY Smoke: No ALCOHOL: rare Drugs: None Lives: with Family CURRENT MEDICATIONS Current Medications Current Medications Aspirin (Aspirin Chewable) 324 mg 1X ONCE PO Last administered on 05/23/20at 23:38; Start 05/23/20 at 23:45; Stop 05/23/20 at 23:46; Status DC Enoxaparin Sodium (Lovenox 150mg Syringe) 140 mg 1X ONCE SQ Last administered on 05/23/20at 23:41; Start 05/23/20 at 23:45; Stop 05/23/20 at 23:46; Status DC Furosemide (Lasix) 40 mg 1X ONCE IVP Last administered on 05/23/20at 23:39; Start 05/23/20 at 23:45; Stop 05/23/20 at 23:46; Status DC Nitroglycerin (Nitro-Bid Oint) 1 inch TID TP Last administered on 05/24/20at 01:21; Start 05/24/20 at 01:00 Ondansetron HCl (Zofran) 4 mg PRN Q4HRS PRN IVP NAUSEA/VOMITING; Start 05/24/20 at 00:30; Stop 05/25/20 at 00:29 Acetaminophen (Tylenol) 650 mg PRN Q4HRS PRN PO FEVER > 100.3'F; Start 05/24/20 at 00:30; Stop 05/25/20 at 00:29 Albuterol/ Ipratropium (Duoneb) 3 ml RTQID NEB Last administered on 05/24/20at 05:12; Start 05/24/20 at 08:00; Stop 05/25/20 at 07:59 Enoxaparin Sodium (Lovenox 150mg Syringe) 150 mg Q12HR SQ ; Start 05/24/20 at 09:00 Aspirin (Aspirin Chewable) 81 mg DAILYWBKFT PO ; Start 05/24/20 at 08:00; Stop 05/24/20 at 07:33; Status DC Furosemide (Lasix) 40 mg DAILY IVP ; Start 05/24/20 at 09:00 Info (Anti-Coagulation Monitoring By Pharmacy) 1 each PRN DAILY PRN MC SEE COMMENTS; Start 05/24/20 at 00:45 Ceftriaxone Sodium 1 gm/ Sodium Chloride 50 ml @ 100 mls/hr QHS IV Last administered on 05/24/20at 01:20; Start 05/24/20 at 01:00 Azithromycin (Zithromax) 500 mg 1X ONCE PO Last administered on 05/24/20at 01:21; Start 05/24/20 at 01:00; Stop 05/24/20 at 01:01; Status DC Sodium Chloride 50 ml @ As Directed STK-MED ONCE .ROUTE ; Start 05/24/20 at 00:57; Stop 05/24/20 at 00:58; Status DC Ceftriaxone Sodium (Rocephin) 1 gm STK-MED ONCE .ROUTE ; Start 05/24/20 at 00:57; Stop 05/24/20 at 00:58; Status DC Sodium Chloride 50 ml @ As Directed STK-MED ONCE .ROUTE ; Start 05/24/20 at 0 1:19; Stop 05/24/20 at 01:20; Status DC Ceftriaxone Sodium (Rocephin) 1 gm STK-MED ONCE .ROUTE ; Start 05/24/20 at 01:19; Stop 05/24/20 at 01:20; Status DC Influenza Virus Vaccine Quadrival (Fluzone Quad Syringe) 0.5 ml ONCE ONCE VAX IM ; Start 05/24/20 at 09:00; Stop 05/24/20 at 09:01 Albuterol/ Ipratropium (Duoneb) 3 ml STK-MED ONCE .ROUTE ; Start 05/24/20 at 05:09; Stop 05/24/20 at 05:09; Status DC Allopurinol (Zyloprim) 300 mg DAILY PO ; Start 05/24/20 at 09:00 Aspirin (Aspirin Chewable) 81 mg DAILY PO ; Start 05/24/20 at 09:00 Colchicine (Colcrys) 0.6 mg PRN QID PRN PO gout pain; Start 05/24/20 at 07:00 Furosemide (Lasix) 40 mg DAILY PO ; Start 05/24/20 at 09:00 Gabapentin (Neurontin) 600 mg HS PO ; Start 05/24/20 at 21:00 Acetaminophen/ Hydrocodone Bitart (Lortab 7.5/325) 1 tab PRN Q6HRS PRN PO PAIN; Start 05/24/20 at 07:00 Simvastatin (Zocor) 40 mg QHS PO ; Start 05/24/20 at 21:00 Carvedilol (Coreg) 25 mg BIDWMEALS PO ; Start 05/24/20 at 08:00 Insulin Glargine (Lantus Syringe) 70 unit QHS SQ ; Start 05/24/20 at 21:00 Insulin Human Lispro (HumaLOG) 30 units TIDWMEALS SQ ; Start 05/24/20 at 08:00 Losartan Potassium (Cozaar) 100 mg DAILY PO ; Start 05/24/20 at 09:00 Pantoprazole Sodium (Protonix) 40 mg DAILYAC PO ; Start 05/25/20 at 07:30 Active Scripts Active Furosemide 40 Mg Tablet 40 Mg PO DAILY 30 Days Reported Humalog (Insulin Lispro) 100 Unit/1 Ml Vial 30 Unit SQ TIDWMEALS Levemir Flextouch (Insulin Detemir) 100 Unit/1 Ml Insuln.pen 70 Units SQ QHS Colchicine 0.6 Mg Tablet 1-2 Tab PO PRN Losartan Potassium 100 Mg Tablet 1 Tab PO DAILY Simvastatin 40 Mg Tablet 1 Tab PO QHS Allopurinol 300 Mg Tablet 1 Tab PO DAILY Gabapentin (Gabapentin) 300 Mg Capsule 600 Mg PO HS Omeprazole Magnesium 20 Mg Capsule.dr 1 Cap PO DAILY 30 Days Hydrocodone-Acetamin 7.5-325 (Hydrocodone/Acetaminophen) 1 Each Tablet 7.5 Mg PO PRN Q6HRS PRN Carvedilol 25 Mg Tablet 25 Mg PO BID Aspirin 81 Mg Tab.chew 81 Mg PO DAILY ALLERGIES Allergies: Coded Allergies: No Known Drug Allergies (Unverified , 09/07/14) ROS Review of Systems 14 point ROS conducted with pertinent positives noted above in HPI PHYSICAL EXAM General: Alert, Oriented X3, Cooperative, No acute distress HEENT: Atraumatic, Mucous membr. moist/pink Lungs: Other (diminished ) Heart: Regular rate Abdomen: Soft, No tenderness Extremities: Other (2+ bilateral LE edema ) Skin: No breakdown Neuro: Normal speech, Sensation intact Psych/Mental Status: Mental status NL, Mood NL MUSCULOSKELETAL: Osteoarthritic changes both hands VITALS Vital Signs Vital Signs Date Time Temp Pulse Resp B/P (MAP) Pulse Ox O2 Delivery O2 Flow Rate FiO2 05/24/20 05:13 96 Nasal Cannula 2.0 05/24/20 05:03 97.9 66 24 158/76 (103) LABS LABS Laboratory Tests Test 05/23/20 00:45 05/23/20 22:55 05/23/20 23:15 05/24/20 00:25 Blood Gas pH 7.37 (7.35-7.46) Blood Gas PCO2 47 mmHg (35-46) Blood Gas PO2 92 mmHg (80-100) Blood Gas HCO3 27 mmol/L (21-28) Arterial Bld O2 Saturation (Calc) 97 % (92-99) FiO2 26 % Prothrombin Time 10.3 SEC (9.4-11.4) Prothromb Time International Ratio 1.0 (0.9-1.1) Activated Partial Thromboplast Time 25 SEC (23-33) D-Dimer (Betzy) 0.98 mg/L (0.00-0.50) Sodium Level 142 mmol/L (136-145) Potassium Level 3.8 mmol/L (3.5-5.1) Chloride Level 104 mmol/L (98-107) Carbon Dioxide Level 28 mmol/L (21-32) Anion Gap 10 (6-14) Blood Urea Nitrogen 33 mg/dL (8-26) Creatinine 1.7 mg/dL (0.7-1.3) Estimated GFR (Cockcroft-Gault) 40.3 Glucose Level 289 mg/dL (70-99) Lactic Acid Level 2.3 mmol/L (0.4-2.0) Calcium Level 8.8 mg/dL (8.5-10.1) Magnesium Level 2.1 mg/dL (1.8-2.4) Total Bilirubin 0.2 mg/dL (0.2-1.0) Direct Bilirubin 0.1 mg/dL (0.0-0.2) Aspartate Amino Transf (AST/SGOT) 13 U/L (15-37) Alanine Aminotransferase (ALT/SGPT) 21 U/L (16-63) Alkaline Phosphatase 99 U/L (46-116) Creatine Kinase 47 U/L (39-308) Troponin I Quantitative < 0.017 ng/mL (0-0.055) EB-Uwu-V-Type Natriuretic Peptide 1306 pg/mL (0-124) Total Protein 6.8 g/dL (6.4-8.2) Albumin 3.2 g/dL (3.4-5.0) Lipase 47 U/L (73-393) White Blood Count 9.2 x10^3/uL (4.0-11.0) Red Blood Count 4.09 x10^6/uL (4.30-5.70) Hemoglobin 12.2 g/dL (13.0-17.5) Hematocrit 38.1 % (39.0-53.0) Mean Corpuscular Volume 93 fL (79-100) Mean Corpuscular Hemoglobin 30 pg (25-35) Mean Corpuscular Hemoglobin Concent 32 g/dL (31-37) Red Cell Distribution Width 15.6 % (11.5-14.5) Platelet Count 251 x10^3/uL (140-400) Neutrophils (%) (Auto) 66 % (31-73) Lymphocytes (%) (Auto) 24 % (24-48) Monocytes (%) (Auto) 6 % (0-9) Eosinophils (%) (Auto) 3 % (0-3) Basophils (%) (Auto) 0 % (0-3) Neutrophils # (Auto) 6.1 x10^3uL (1.8-7.7) Lymphocytes # (Auto) 2.2 x10^3/uL (1.0-4.8) Monocytes # (Auto) 0.6 x10^3/uL (0.0-1.1) Eosinophils # (Auto) 0.3 x10^3/uL (0.0-0.7) Basophils # (Auto) 0.0 x10^3/uL (0.0-0.2) Urine Collection Type Void Urine Color Yellow Urine Clarity Clear Urine pH 5.5 Urine Specific [place] 1.020 Urine Protein >100 mg/dl (NEG-TRACE) Urine Glucose (UA) 250 mg/dL (NEG) Urine Ketones (Stick) Neg mg/dL (NEG) Urine Blood Small (NEG) Urine Nitrite Neg (NEG) Urine Bilirubin Neg (NEG) Urine Urobilinogen Dipstick 0.2 mg/dL (0.2 mg/dL) Urine Leukocyte Esterase Neg (NEG) Urine RBC 6-10 /HPF (0-2) Urine WBC 1-4 /HPF (0-4) Urine Squamous Epithelial Cells Occ /LPF Urine Bacteria 0 /HPF (0-FEW) Urine Hyaline Casts Occ /HPF Urine Opiates Screen Neg (NEG) Urine Methadone Screen Neg (NEG) Urine Barbiturates Neg (NEG) Urine Phencyclidine Screen Neg (NEG) Urine Amphetamine/Methamphetamine Neg (NEG) Urine Benzodiazepines Screen Neg (NEG) Urine Cocaine Screen Neg (NEG) Urine Cannabinoids Screen Neg (NEG) Urine Ethyl Alcohol Neg (NEG) Test 05/24/20 03:15 05/24/20 07:26 Lactic Acid Level 2.1 mmol/L (0.4-2.0) Glucose (Fingerstick) 225 mg/dL (70-99) ECHOCARDIOGRAM Echocardiogram <Conclusion> Technically difficult study. The left ventricular systolic function is normal. The Ejection Fraction is 55%. There is normal LV segmental wall motion. There is a pacemaker lead in the right atrium and right ventricle. Trace tricuspid regurgitation with an estimated PAP of 33 mmHg. There is no evidence of significant pericardial effusion. DATE: 08/18/19 1601 ASSESSMENT/PLAN Assessment/Plan 1. Acute on chronic diastolic heart failure. Echo earlier this year with preserved LV systolic function 2. Accelerated hypertension; now better controlled 3. Diabetes, II 4. Dyslipidemia. 5. MG on CKD 6. PAFIB; maintaining SR. Low AFIB burden, not on OAC per review of records 7. SSS s/p PPM (Roamlertronic); device check 11/02 with normal function. Follow with Dr. Keen with MAC 8. Obstructive sleep apnea, morbid obesity; CPAP 9. Lactic acidosis Recommendations Diuresis with monitoring of renal function HF optimization with coreg, losartan, and lasix Discussed/encouraged 2000cc FR. 2Gm Na diet along with daily weight monitoring. Is to report > 2-3# weight gain overnight or 5# in a week. Outpatient echo Rate controlled with BB therapy ASA therapy. 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 Keen, but often has difficulty getting appointment and will have to travel to to be seen. Would like to transfer cardiology care here with Dr. Arredondo, who has seen him previously. Will schedule follow up appointment Supportive care VICKIE ACHARYA MD 05/24/202014: CARDIAC CONSULT ASSESSMENT/PLAN Assessment/Plan Patient seen and examined. Agree with INSTRUCTIONAL ASSISTANT's assessment and plan. Ac on chr diast HF better compensated with diuresis Recent echo showed normal LVED BP better controlled PAF maintaining SR SSS s/p PPM stable Follow up with our office as scheduled Thank you for your consultation ANGELINA SEVILLA APRN May 24, 2020 07:56 VICKIE ACHARYA MD May 24, 2020 20:15
[2020-05-24] MEDS ORDERED: IPRATRPIUM/ALBUTEROL 0.5/2.5MG 3 ML NEBU. NEB SCH (08:00)
[2020-05-24] MEDS ORDERED: ASPIRIN CHEWABLE 81 MG TABLET. PO SCH (08:00)
[2020-05-24] MEDS: LOSARTAN 50 MG TABLET. PO SCH (08:43)
[2020-05-24] MEDS: INSULIN LISPRO 300 UNITS/3 ML VIAL. SQ SCH ×3 (08:44→16:28)
[2020-05-24] MEDS: ALLOPURINOL 300 MG TABLET. PO SCH (08:46)
[2020-05-24] MEDS: CARVEDILOL 12.5 MG TABLET PO SCH ×2 (08:46→16:48)
[2020-05-24] MEDS: ASPIRIN CHEWABLE 81 MG TABLET. PO SCH (08:46)
[2020-05-24] MEDS: ENOXAPARIN ** NOTE DOSE ** SYRINGE SQ SCH ×2 (08:47→21:55)
[2020-05-24] MEDS: FUROSEMIDE 40 MG/4 ML VIAL IVP SCH (08:47)
[2020-05-24] MEDS: FUROSEMIDE 40 MG TABLET PO SCH (09:00)
[2020-05-24] MEDS ORDERED: FLU VACC QS 2020-21(6MOS+)/PF 0.5 ML SYRINGE. VAX IM ONE (09:00)
[2020-05-24] MEDS: AZITHROMYCIN 250 MG TABLET. PO SCH (10:59)
[2020-05-24 11:18] LABS: CALCIUM 9.5 mg/dL (8.5-10.1); CREATININE 1.7 mg/dL (0.7-1.3); GFR 40.3; MAGNESIUM 2.4 mg/dL (1.8-2.4); POTASSIUM 3.5 mmol/L (3.5-5.1)
[2020-05-24] MEDS ORDERED: IPRATROPIUM/ALBUTEROL 20/100mcg/INH INHALER. INH PRN (11:30)
--- NOTE | 2020-05-24 13:40 | HP ---
ADMIT DATE: 05/24/2020 HISTORY OF PRESENT ILLNESS: This is a 69-year-old gentleman with multiple medical problems. The patient has noted he has gained 20 pounds of water weight in the last 4-5 days, increased shortness of breath, increased orthopnea, dyspnea and the patient was seen in the Emergency Room and found to be in congestive heart failure, has a history of atrial fibrillation and alike. The patient, because of his increased dyspnea and has lack of response to oral furosemide, has been admitted for IV furosemide and consultation with Cardiology. PAST MEDICAL HISTORY: Includes cataract surgery, angina, CHF, CAD, pacemaker, hypertension, respiratory disorders, sleep apnea. He is on CPAP as history of diarrhea, diverticulosis, partial colectomy with an intermediate anastomosis, obesity, renal disease, urinary urgency, musculoskeletal problems, right first and second toe partial amputation as a teenager, osteoarthritis, degenerative disk disease, alcohol abuse, smoking, smoking cessation, smoking exposure, cancer. Tetanus vaccinations are up-to-date. FAMILY HISTORY: Positive for diabetes, brain cancer and congestive heart failure in the mother and other coronary artery disease. ALLERGIES: The states he has no known drug allergies. HOME MEDICATIONS: Zocor 40, carvedilol 25, losartan, aspirin, hydrocodone, gabapentin, furosemide 40 daily, Prilosec 20 mg a day and insulin long-acting and short-acting, allopurinol, colchicine for history of gout. SOCIAL HISTORY: No smoking. Occasional alcohol use. He is a full code. REVIEW OF SYSTEMS: The patient notes no headaches or visual changes or blurred vision. No neurological deficits, but does have marked shortness of breath, orthopnea, dyspnea, unable to walk more than 5-10 feet without getting extremely short of breath. The patient denies chest pain, abdominal pain, nausea, vomiting, melena, hematochezia, or hematemesis. Legs are swollen and tender and difficult to touch. PHYSICAL EXAMINATION: GENERAL: This is a pleasant white male, morbidly obese. VITAL SIGNS: Blood pressure 162/79. Blood pressure had been as high as 194/90, respiratory rate 24, pulse 68, afebrile. The patient is alert and oriented. Weight is roughly 146 kilos. HEENT: The patient otherwise, head was atraumatic, normocephalic. Eyes: PERRLA without jaundice. The mouth and throat, poor dentition. NECK: Supple, without JVD, carotid bruits or thyromegaly. LUNGS: Diminished with rales or rhonchi noted in the bases. CARDIOVASCULAR: Laterally displaced PMI with regular sinus rhythm, S1, S2, without S3. ABDOMEN: Markedly protuberant, soft, nontender. Umbilical hernia. EXTREMITIES: No clubbing, cyanosis, +2 to 3 pitting edema. Pulses noted distally. NEUROLOGIC: Baseline, which is alert and oriented for this individual. LABORATORY DATA: His hemoglobin is 12 and hematocrit is 38. White count 9. Sodium and potassium 142 and 3.5, BUN and creatinine 37 and 1.7. He did have an elevated lactic acid and therefore he was placed on some basic antibiotics of Rocephin and Zithromax to cover any hidden infections with that lactic acid, which may have been related to just low mobility. His blood gas 7.37, pCO2 of 47, pO2 of 92. The patient has marked orthopnea though. He does have hematuria, which I believe is a longstanding problem. IMPRESSION: Acute on top of chronic diastolic heart failure, type 2 diabetes, elevated lactic acids, elevated D-dimer, morbid obesity, type 2 diabetes, history of coronary artery disease, history of colectomy, history of obstructive sleep apnea, sick sinus syndrome with pacemaker placement and chronic atrial fibrillation, which is on and off. PLAN: The patient will be admitted, placed on IV furosemide since he has failed outpatient furosemide. He is on Lovenox for an anticoagulant; although, his pulse rate is controlled. LONI CHISHOLM MD DR: PABLO/tenisha JOB#: [id number] / [id number]
[2020-05-24] MEDS ORDERED: FUROSEMIDE 40 MG/4 ML VIAL IVP ONE (14:00)
[2020-05-24] MEDS ORDERED: POTASSIUM CHLORIDE 20 MEQ TABLET.ER. PO ONE (14:00)
[2020-05-24] MEDS: INSULIN GLARGINE SYRINGE. SQ SCH (21:54)
[2020-05-24] MEDS: GABAPENTIN 300 MG CAPSULE. PO SCH (21:54)
[2020-05-24] MEDS: LACTOBACILLUS RHAMNOSUS GG 1 CAPSULE. PO SCH (21:54)
[2020-05-24] MEDS: SIMVASTATIN 40 MG TABLET. PO SCH (21:54)
[2020-05-24 23:07] LABS: HEMOGLOBIN A1C 8.4 % (4.8-5.6)
[2020-05-25 06:54] LABS: CALCIUM 8.8 mg/dL (8.5-10.1); CREATININE 1.7 mg/dL (0.7-1.3); GFR 40.3; POTASSIUM 3.8 mmol/L (3.5-5.1)
[2020-05-25 06:56] LABS: BASO % 1 % (0-3); EOS # 0.3 x10^3/uL (0.0-0.7); EOS % 4 % (0-3); HEMATOCRIT 35.9 % (39.0-53.0); HEMOGLOBIN 11.4 g/dL (13.0-17.5); LYMPH # 2.4 x10^3/uL (1.0-4.8); LYMPH % 26 % (24-48); MEAN CORPUSCULAR HEMOGLOBIN 30 pg (25-35); MEAN CORPUSCULAR HGB CONC 32 g/dL (31-37); MEAN CORPUSCULAR VOLUME 93 fL (79-100); MONO # 0.6 x10^3/uL (0.0-1.1); MONO % 7 % (0-9); NEUT # 5.7 x10^3uL (1.8-7.7); NEUT % 63 % (31-73); PLATELET COUNT 241 x10^3/uL (140-400); RED BLOOD COUNT 3.84 x10^6/uL (4.30-5.70); RED CELL DISTRIBUTION WIDTH 16.3 % (11.5-14.5)
[2020-05-25] MEDS: ASPIRIN CHEWABLE 81 MG TABLET. PO SCH (08:33)
[2020-05-25] MEDS: FUROSEMIDE 40 MG/4 ML VIAL IVP SCH (08:33)
[2020-05-25] MEDS: LACTOBACILLUS RHAMNOSUS GG 1 CAPSULE. PO SCH ×2 (08:33→21:10)
[2020-05-25] MEDS: LOSARTAN 50 MG TABLET. PO SCH (08:33)
[2020-05-25] MEDS: ENOXAPARIN ** NOTE DOSE ** SYRINGE SQ SCH ×2 (08:33→21:11)
[2020-05-25] MEDS: AZITHROMYCIN 250 MG TABLET. PO SCH (08:33)
[2020-05-25] MEDS: NITROGLYCERIN OINT 1 GM PACKET. TP SCH ×3 (08:34→21:00)
[2020-05-25] MEDS: PANTOPRAZOLE 40 MG TABLET. PO SCH (08:34)
[2020-05-25] MEDS: ALLOPURINOL 300 MG TABLET. PO SCH (08:34)
[2020-05-25] MEDS: CARVEDILOL 12.5 MG TABLET PO SCH ×2 (08:38→17:13)
[2020-05-25] MEDS: INSULIN LISPRO 300 UNITS/3 ML VIAL. SQ SCH ×3 (08:38→17:00)
[2020-05-25] MEDS: FUROSEMIDE 40 MG TABLET PO SCH (08:39)
[2020-05-25 11:07] VITALS: BP 150/72
[2020-05-25] MEDS: metOLazone 2.5 MG TABLET PO SCH (12:15)
--- NOTE | 2020-05-25 12:54 | RAD ---
EXAM: Pulmonary perfusion scan. HISTORY: Shortness of breath. Elevated dimer. TECHNIQUE: Sonographic images of the chest were obtained following the administration of 5.5 mCi Tc-99m MAA. COMPARISON: Chest radiograph dated 05/23/2020. FINDINGS: There is no convincing perfusion defect to suggest pulmonary embolism. IMPRESSION: Negative for pulmonary embolism. Electronically signed by: Nadine Baumann MD (05/25/2020 12:51 PM) [id number]
[2020-05-25 14:58] VITALS: BP 149/65
--- NOTE | 2020-05-25 15:42 | PDOC ---
DATE OF SERVICE: DOS: DATE: 05/25/20 TIME: 15:38 SUBJECTIVE: Patient seen and examined OBJECTIVE: Vital Signs/I&O: Vital Signs Date Time Temp Pulse Resp B/P (MAP) Pulse Ox O2 Delivery O2 Flow Rate FiO2 05/25/20 14:58 97.8 63 149/65 (93) 92 Room Air 05/24/20 22:51 20 05/24/20 20:40 2.0 I & O 05/24/20 05/24/20 05/25/20 15:00 23:00 07:00 Intake Total 240 ml 530 ml 240 ml Balance 240 ml 530 ml 240 ml Labs: Laboratory Tests Test 05/24/20 16:27 05/24/20 20:20 05/25/20 05:55 05/25/20 07:45 Glucose (Fingerstick) 69 mg/dL (70-99) L 144 mg/dL (70-99) H 149 mg/dL (70-99) H White Blood Count 9.0 x10^3/uL (4.0-11.0) Red Blood Count 3.84 x10^6/uL (4.30-5.70) L Hemoglobin 11.4 g/dL (13.0-17.5) L Hematocrit 35.9 % (39.0-53.0) L Mean Corpuscular Volume 93 fL (79-100) Mean Corpuscular Hemoglobin 30 pg (25-35) Mean Corpuscular Hemoglobin Concent 32 g/dL (31-37) Red Cell Distribution Width 16.3 % (11.5-14.5) H Platelet Count 241 x10^3/uL (140-400) Neutrophils (%) (Auto) 63 % (31-73) Lymphocytes (%) (Auto) 26 % (24-48) Monocytes (%) (Auto) 7 % (0-9) Eosinophils (%) (Auto) 4 % (0-3) H Basophils (%) (Auto) 1 % (0-3) Neutrophils # (Auto) 5.7 x10^3uL (1.8-7.7) Lymphocytes # (Auto) 2.4 x10^3/uL (1.0-4.8) Monocytes # (Auto) 0.6 x10^3/uL (0.0-1.1) Eosinophils # (Auto) 0.3 x10^3/uL (0.0-0.7) Basophils # (Auto) 0.0 x10^3/uL (0.0-0.2) Sodium Level 143 mmol/L (136-145) Potassium Level 3.8 mmol/L (3.5-5.1) Chloride Level 106 mmol/L (98-107) Carbon Dioxide Level 28 mmol/L (21-32) Anion Gap 9 (6-14) Blood Urea Nitrogen 38 mg/dL (8-26) H Creatinine 1.7 mg/dL (0.7-1.3) H Estimated GFR (Cockcroft-Gault) 40.3 Glucose Level 144 mg/dL (70-99) H Calcium Level 8.8 mg/dL (8.5-10.1) Test 05/25/20 11:14 Glucose (Fingerstick) 177 mg/dL (70-99) H Physical Exam: Chest. Mildly decreased breath sounds. CV. Regular rate and rhythm, 1/6 systolic murmur Abdomen. Soft to auscultation and percussion. ASSESSMENT: Assessment/Plan 1. Acute on chronic diastolic heart failure. Echo earlier this year with preserved LV systolic function. Patient improved on present medications. 2. Accelerated hypertension; better controlled. Continue present treatment 3. Diabetes, II 4. Dyslipidemia. 5. MG on CKD. Monitoring lab. 6. PAFIB; maintaining SR. Low AFIB burden, on beta-blockers. Not on OAC per review of records 7. SSS s/p PPM ([employer]); device check 11/02 with normal function. 8. Obstructive sleep apnea, morbid obesity; CPAP 9. Lactic acidosis CARDIAC CONSULT Justification of Admission: Justification of Admission: Justification of Admission Dx: Yes LIZA DE LA O MD May 25, 2020 15:42
[2020-05-25 19:57] VITALS: BP 149/85
[2020-05-25] MEDS: SIMVASTATIN 40 MG TABLET. PO SCH (21:10)
[2020-05-25] MEDS: GABAPENTIN 300 MG CAPSULE. PO SCH (21:10)
[2020-05-25] MEDS: INSULIN GLARGINE SYRINGE. SQ SCH (21:12)
--- NOTE | 2020-05-25 23:01 | PN ---
DATE: 05/25/2020 SUBJECTIVE: This is a 69-year-old male in with acute on top of chronic diastolic heart failure. The patient has diuresed some, but still continues to lag behind in terms of having pitting edema. We will have him go ahead and add metolazone or Zaroxolyn to his Lasix to see if we can get a better diuresis. This gentleman as he is still in excess fluid. He says he does feel better. OBJECTIVE: VITAL SIGNS: Blood pressure 149/85, respiratory rate 18, pulse 67, afebrile. GENERAL: The patient denies chest pain, does have shortness of breath and dyspnea with exertion. LUNGS: The patient's lungs are diminished. CARDIOVASCULAR: Irregularly irregular. ABDOMEN: Protuberant, soft. EXTREMITIES: No clubbing, cyanosis, +2 pitting edema. NEUROLOGIC: Alert and oriented. Speech is fluent, spontaneous, and appropriate. LABORATORY DATA: Basically unremarkable, slightly anemic. The patient had a V/Q scan and had a positive D-dimer, which was negative for any signs of PE. IMPRESSION: Acute on top of chronic diastolic heart failure, morbid obesity, type 2 diabetes, atrial fibrillation as well as dyspnea, and chronic atrial fibrillation. PLAN: Continue to diurese and make further evaluation. See Dr. Edwards's note. LONI CHISHOLM MD DR: PABLO/tenisha JOB#: [id number] / [id number]
[2020-05-25 23:08] VITALS: BP 152/70
[2020-05-26 05:53] VITALS: BP 164/81
[2020-05-26 07:34] LABS: CALCIUM 8.9 mg/dL (8.5-10.1); CREATININE 1.7 mg/dL (0.7-1.3); GFR 40.3; POTASSIUM 3.5 mmol/L (3.5-5.1)
[2020-05-26] MEDS: FUROSEMIDE 40 MG TABLET PO SCH (09:00)
[2020-05-26] MEDS: NITROGLYCERIN OINT 1 GM PACKET. TP SCH (09:00)
[2020-05-26] MEDS: ASPIRIN CHEWABLE 81 MG TABLET. PO SCH (09:20)
[2020-05-26] MEDS: LACTOBACILLUS RHAMNOSUS GG 1 CAPSULE. PO SCH (09:21)
[2020-05-26] MEDS: AZITHROMYCIN 250 MG TABLET. PO SCH (09:21)
[2020-05-26] MEDS: metOLazone 2.5 MG TABLET PO SCH (09:21)
[2020-05-26] MEDS: LOSARTAN 50 MG TABLET. PO SCH (09:21)
[2020-05-26] MEDS: PANTOPRAZOLE 40 MG TABLET. PO SCH (09:21)
[2020-05-26] MEDS: FUROSEMIDE 40 MG/4 ML VIAL IVP SCH (09:21)
[2020-05-26] MEDS: ENOXAPARIN ** NOTE DOSE ** SYRINGE SQ SCH (09:22)
[2020-05-26] MEDS: INSULIN LISPRO 300 UNITS/3 ML VIAL. SQ SCH ×2 (09:25→12:29)
[2020-05-26] MEDS: ALLOPURINOL 300 MG TABLET. PO SCH (09:27)
[2020-05-26] MEDS: CARVEDILOL 12.5 MG TABLET PO SCH (09:28)
[2020-05-26 11:02] VITALS: BP 150/89
[2020-05-26] MEDS ORDERED: IPRA4AER INH (12:50)
[2020-05-26] MEDS ORDERED: METO2.5T PO (12:50)
--- NOTE | 2020-05-27 12:28 | DS ---
DATE OF DISCHARGE: 05/26/2020 HOSPITAL COURSE: The patient was admitted with increased shortness of breath, acute on top of chronic respiratory failure, acute on top of chronic congestive heart failure. The patient came in and he was having extreme dyspnea, walking only probably less than 10 feet, had a positive D-dimer and his coronavirus was negative. The patient's hemoglobin 11.4, 35. His electrolytes 144, 3.5. BUN and creatinine 38, 1.7. Sugars varying anywhere from 170 to 70. The patient's otherwise cardiac enzymes were negative. His BNP was over 1300. TSH was normal at 1.8, lipase 47. Initially, his blood sugar was 289. Coags elevated. V/Q scan negative. Urine ____ protein greater than 100 mg/dL. Glucose was noted, 6-10 reds in his urine. The patient's chest x-ray showed congestion with mild pulmonary edema. The patient was diuresed. He was seen by Cardiology. I put him on metolazone along with the furosemide that seemed to diurese him very clearly without any complications there. ____ 146 on admission. No followup on that as far as ____ scales, but he did have less pitting edema. He had no known allergies. The patient made good progress, discharged home. IMPRESSION: Acute on top of chronic diastolic heart failure, acute on top of chronic respiratory failure, dyspnea, hyperproteinuria, chronic kidney disease stage 3, type 2 diabetes, morbid obesity with body mass index probably greater than 40. The patient's serology negative for COVID. Otherwise, the patient made excellent progress. He will be discharged home. 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 LONI CHISHOLM MD DR: PABLO/tenisha JOB#: [id number] / [id number]
== END 2020-05-26 13:45 | disposition home or self-care (01) | DRG 291 ==
LOC: ER 22:46 → 1 SOUTH 05-24 00:29
PROVIDERS: ADMIT Family Medicine; ATTEND Family Medicine
DX: I13.0 Hypertensive heart and chronic kidney disease with heart failure and stage 1 through stage 4 chronic kidney disease, or unspecified chronic kidney disease (principal); J96.20 Acute and chronic respiratory failure, unspecified whether with hypoxia or hypercapnia; I50.33 Acute on chronic diastolic (congestive) heart failure; N17.9 Acute kidney failure, unspecified; J81.1 Chronic pulmonary edema; I48.20 Chronic atrial fibrillation, unspecified; Z68.42 Body mass index [BMI] 45.0-49.9, adult; Z20.828 Contact with and (suspected) exposure to other viral communicable diseases; E66.01 Morbid (severe) obesity due to excess calories; D64.9 Anemia, unspecified; E11.22 Type 2 diabetes mellitus with diabetic chronic kidney disease; N18.32 Chronic kidney disease, stage 3b; G47.33 Obstructive sleep apnea (adult) (pediatric); Z88.8 Allergy status to other drugs, medicaments and biological substances; I25.119 Atherosclerotic heart disease of native coronary artery with unspecified angina pectoris; Z83.3 Family history of diabetes mellitus; Z82.49 Family history of ischemic heart disease and other diseases of the circulatory system; G47.30 Sleep apnea, unspecified; Z95.0 Presence of cardiac pacemaker; Z87.891 Personal history of nicotine dependence; F10.21 Alcohol dependence, in remission
CPT/HCPCS: 36415; 71045; 78580; 80048; 80061; 80076; 80307; 81001; 82550; 82803; 82947; 83036; 83605; 83690; 83735; 83880; 84443; 84484; 85025; 85379; 85610; 85730; 87040; 90471; 93005; 94640; 96374; A9540; G0238; J0456; J0696; J1650; J1815; J1940; 90686; U0003-CS

== ENCOUNTER 2020-07-15 11:44 | Inpatient (IN) | payer MEDICARE ==
[~2020-07-15] VITALS: Ht 172.7 cm; Wt 135.9 kg
[~2020-07-15 11:44] MED LIST changes: +ALLO300T PO; +COLC0.6T45 PO; +INSU100I27 SQ; +INSU100V SQ; +INSULIN LISPRO 300 UNITS/3 ML VIAL. SQ SCH; +IPRA4AER INH; +LOSA100T14 PO; +METO2.5T PO; +SIMV40TA18 PO
--- NOTE | 2020-07-15 11:52 | PHYS DOC ---
Past History Past Medical History: A-Fib, Arthritis, CAD, CHF, Constipation, Diabetes, High Cholesterol, Hypertension Past Surgical History: Cancer Surgery, Pacemaker Alcohol Use: Rarely Drug Use: None Adult General HPI HPI Patient is a 69yo male presenting for COVID. He was recently diagnosed and continues to have worsened respiratory symptoms. He admits URI-like symptoms with persistent rhinorrhea with worsening SHOB and dry, non-productive cough. He presented to PCP today for evaluation and was found to have concerning CXR in setting of worsening respiratory symptoms prompting PCP to refer patient to our ER for evaluation and consideration for admission. Patient denies fever but admits chest tightness, SHOB, non-productive cough, muscle aches, and ongoing fatigue. Review of Systems Review of Systems Fourteen body systems of review of systems have been reviewed. See HPI for pertinent positives and negative responses, other redding all other systems are negative, non-pertinent or non-contributory Allergies Allergies Allergies Coded Allergies Type Severity Reaction Last Updated Verified No Known Drug Allergies 09/07/14 No Physical Exam Physical Exam Constitutional: Well developed, well nourished, ill-appearing HENT: Normocephalic, atraumatic, bilateral external ears normal, oropharynx moist, no oral exudates, nose normal. Eyes: PERRLA, EOMI, conjunctiva normal, no discharge. Neck: Normal range of motion, no tenderness, supple, no stridor. Cardiovascular: Heart rate regular, sinus rhythm, no murmurs rubs or gallops Lungs & Thorax: No resp distress or accessory muscle use, dec air movement bilaterally, crackles present bilaterally Abdomen: Bowel sounds normal, soft, no tenderness, no masses, no pulsatile masses. Nonsurgical abdomen, no peritoneal signs Skin: Warm, dry, no erythema, no rash. Back: No tenderness, no CVA tenderness. Extremities: No tenderness, no cyanosis, no clubbing, ROM intact, no edema. Neurologic: Alert and oriented X 3, grossly normal motor & sensory function, no focal deficits noted. Psychologic: Affect normal, judgement normal, depressed Current Patient Data Vital Signs Vital Signs Date Time Temp Pulse Resp B/P (MAP) Pulse Ox O2 Delivery O2 Flow Rate FiO2 07/15/20 21:15 80 138/47 07/15/20 20:00 Nasal Cannula 3.0 07/15/20 19:20 97.8 07/15/20 18:51 18 90 Lab Results Laboratory Tests Test 07/15/20 12:47 07/15/20 13:40 07/15/20 18:33 07/15/20 19:57 White Blood Count 9.0 x10^3/uL (4.0-11.0) Red Blood Count 4.17 x10^6/uL (4.30-5.70) Hemoglobin 12.4 g/dL (13.0-17.5) Hematocrit 38.7 % (39.0-53.0) Mean Corpuscular Volume 93 fL (79-100) Mean Corpuscular Hemoglobin 30 pg (25-35) Mean Corpuscular Hemoglobin Concent 32 g/dL (31-37) Red Cell Distribution Width 15.3 % (11.5-14.5) Platelet Count 236 x10^3/uL (140-400) Neutrophils (%) (Auto) 84 % (31-73) Lymphocytes (%) (Auto) 10 % (24-48) Monocytes (%) (Auto) 6 % (0-9) Eosinophils (%) (Auto) 0 % (0-3) Basophils (%) (Auto) 0 % (0-3) Neutrophils # (Auto) 7.5 x10^3uL (1.8-7.7) Lymphocytes # (Auto) 0.9 x10^3/uL (1.0-4.8) Monocytes # (Auto) 0.6 x10^3/uL (0.0-1.1) Eosinophils # (Auto) 0.0 x10^3/uL (0.0-0.7) Basophils # (Auto) 0.0 x10^3/uL (0.0-0.2) Sodium Level 131 mmol/L (136-145) Potassium Level 3.9 mmol/L (3.5-5.1) Chloride Level 96 mmol/L (98-107) Carbon Dioxide Level 25 mmol/L (21-32) Anion Gap 10 (6-14) Blood Urea Nitrogen 46 mg/dL (8-26) Creatinine 1.9 mg/dL (0.7-1.3) Estimated GFR (Cockcroft-Gault) 35.4 BUN/Creatinine Ratio 24 (6-20) Glucose Level 248 mg/dL (70-99) Calcium Level 8.4 mg/dL (8.5-10.1) Total Bilirubin 0.4 mg/dL (0.2-1.0) Aspartate Amino Transf (AST/SGOT) 41 U/L (15-37) Alanine Aminotransferase (ALT/SGPT) 46 U/L (16-63) Alkaline Phosphatase 82 U/L (46-116) Troponin I Quantitative < 0.017 ng/mL (0-0.055) Total Protein 6.9 g/dL (6.4-8.2) Albumin 2.3 g/dL (3.4-5.0) Albumin/Globulin Ratio 0.5 (1.0-1.7) Lactic Acid Level 1.3 mmol/L (0.4-2.0) D-Dimer (Betzy) 0.50 mg/L (0.00-0.50) Creatine Kinase 48 U/L (39-308) KI-Nje-B-Type Natriuretic Peptide 3499 pg/mL (0-124) Glucose (Fingerstick) 468 mg/dL (70-99) Test 07/15/20 20:20 Urine Collection Type Unknown Urine Color Yellow Urine Clarity Clear Urine pH 5.5 Urine Specific [place] 1.020 Urine Protein >100 mg/dl (NEG-TRACE) Urine Glucose (UA) >=1000 mg/dL (NEG) Urine Ketones (Stick) Neg mg/dL (NEG) Urine Blood Small (NEG) Urine Nitrite Neg (NEG) Urine Bilirubin Neg (NEG) Urine Urobilinogen Dipstick 0.2 mg/dL (0.2 mg/dL) Urine Leukocyte Esterase Neg (NEG) Urine RBC 0 /HPF (0-2) Urine WBC 0 /HPF (0-4) Urine Squamous Epithelial Cells None /LPF Urine Bacteria 0 /HPF (0-FEW) EKG EKG EKG ordered and interpreted by myself at 1235 hrs. as sinus rhythm at 61 bpm, no axis deviation, no acute ischemic findings, no STEMI Radiology/Procedures Radiology/Procedures PROCEDURE: CHEST AP ONLY CHEST AP ONLY History: Reason: shob / Spl. Instructions: / History: Comparison: May 23, 2020 Findings: Multifocal pulmonary opacities, left greater than right. No pleural effusion. Eventration of the right hemidiaphragm. No pneumothorax. Left-sided pacemaker. Unchanged heart size. Impression: 1. Multifocal pulmonary opacities, concerning for pneumonia including viral pneumonia. Electronically signed by: Zeke Lord DO (07/15/2020 12:57 PM) [id number] Heart Score HEART Score for Chest Pain: HEART Score for Chest Pain Response (Comments) Value History Moderately Suspicious 1 ECG Normal 0 Age > 65 2 Risk Factors >3 Risk Factors or Hx CAD 2 Troponin < Normal Limit 0 Total 5 Risk Factors: Risk Factors: DM, Current or recent (<one month) smoker, HTN, HLP, family history of CAD, obesity. Risk Scores: Risk Factors: DM, Current or recent (<one month) smoker, HTN, HLP, family history of CAD, obesity. Course & Med Decision Making Course & Med Decision Making Pertinent Labs and Imaging studies reviewed. (See chart for details) COVID positive patient with numerous comorbid conditions and chest tightness. Unsafe for discharge home for respiratory reasons, will need IV antibiotics, will also need cardiac observation with serial trop and ECG to rule out ACS. I discussed case with PCP, Dr. Chisholm, who was agreeable for admission under his care I updated patient on plan of care and he was amenable, all questions and concerns addressed prior to ED departure to [facility] for continued care Dragon Disclaimer Dragon Disclaimer This electronic medical record was generated, in whole or in part, using a voice recognition dictation system. Departure Departure: Impression: Primary Impression: Multifocal pneumonia Additional Impressions: COVID-19 HFrEF (heart failure with reduced ejection fraction) Disposition: 09 ADMITTED INPT THIS HOSP Admitting Physician: Loni Chisholm Condition: STABLE Referrals: LONI CHISHOLM MD (PCP) Problem Qualifiers IRVING CLIFTON DO Jul 15, 2020 11:52
--- NOTE | 2020-07-15 12:59 | RAD ---
CHEST AP ONLY History: Reason: shob / Spl. Instructions: / History: Comparison: May 23, 2020 Findings: Multifocal pulmonary opacities, left greater than right. No pleural effusion. Eventration of the right hemidiaphragm. No pneumothorax. Left-sided pacemaker. Unchanged heart size. Impression: 1. Multifocal pulmonary opacities, concerning for pneumonia including viral pneumonia. Electronically signed by: Zeke Lord DO (07/15/2020 12:57 PM) [id number]
[2020-07-15 13:18] LABS: BASO % 0 % (0-3); EOS % 0 % (0-3); HEMATOCRIT 38.7 % (39.0-53.0); HEMOGLOBIN 12.4 g/dL (13.0-17.5); LYMPH # 0.9 x10^3/uL (1.0-4.8); LYMPH % 10 % (24-48); MEAN CORPUSCULAR HEMOGLOBIN 30 pg (25-35); MEAN CORPUSCULAR HGB CONC 32 g/dL (31-37); MEAN CORPUSCULAR VOLUME 93 fL (79-100); MONO # 0.6 x10^3/uL (0.0-1.1); MONO % 6 % (0-9); NEUT # 7.5 x10^3uL (1.8-7.7); NEUT % 84 % (31-73); PLATELET COUNT 236 x10^3/uL (140-400); RED BLOOD COUNT 4.17 x10^6/uL (4.30-5.70); RED CELL DISTRIBUTION WIDTH 15.3 % (11.5-14.5)
[2020-07-15 13:24] LABS: CALCIUM 8.4 mg/dL (8.5-10.1); CREATININE 1.9 mg/dL (0.7-1.3); GFR 35.4; POTASSIUM 3.9 mmol/L (3.5-5.1)
[2020-07-15 13:29] LABS: ALBUMIN 2.3 g/dL (3.4-5.0); ALBUMIN/GLOBULIN RATIO 0.5 (1.0-1.7); TOTAL BILIRUBIN 0.4 mg/dL (0.2-1.0); TOTAL PROTEIN 6.9 g/dL (6.4-8.2)
[2020-07-15] MEDS ORDERED: AZITHROMYCIN 500 MG in IV NORMAL SALINE 250ML 250 ML IV ONE (13:45)
[2020-07-15] MEDS ORDERED: ACETAMINOPHEN 325 MG TABLET PO PRN (13:45)
[2020-07-15] MEDS ORDERED: IV NORMAL SALINE 100ML 100 ML ONE (13:47)
[2020-07-15] MEDS ORDERED: IV NORMAL SALINE 250ML 250 ML ONE (13:47)
[2020-07-15] MEDS ORDERED: AZITHROMYCIN 500 MG VIAL. IV ONE (13:47)
--- NOTE | 2020-07-15 14:51 | EKG ---
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
[2020-07-15 15:00] VITALS: BP 178/84
--- NOTE | 2020-07-15 15:00 | NUR ---
Meliton Hooker a 69 yo male was admitted to ICU-5, inpatient telemetry, Dr. Carranza, dx of covid, pneumonia. Pt settled into his room, reviewed hospital and unit policies and procedures with pt, written copies have been provided. Pt states he has been sick for 1 week at home with Covid and has failed outpatient therapy and is requiring oxygen to maintain his oxygen saturations. On room air pt was sating in the mid 80's in the ER. On 2.5 lpm via nc pt's oxygen saturation is 94%. Pt original bridge order was for med surg, inpatient and Dr. Carranza has gave orders for pt to be switched to telemetry.
[2020-07-15] MEDS ORDERED: VIT1TABL96 PO (15:35)
[2020-07-15] MEDS ORDERED: ZOLPIDEM 5 MG TABLET. PO PRN (18:15)
[2020-07-15] MEDS ORDERED: ACETAMINOPHEN 500 MG TABLET PO PRN (18:15)
[2020-07-15 18:51] VITALS: BP 138/47
[2020-07-15] MEDS: ENOXAPARIN 40 MG/0.4 ML SYRINGE. SQ SCH (19:49)
[2020-07-15] MEDS: CARVEDILOL 12.5 MG TABLET PO SCH (19:49)
[2020-07-15] MEDS ORDERED: INSULIN GLARGINE SYRINGE. SQ SCH (21:00)
[2020-07-15] MEDS: FAMOTIDINE 20 MG TABLET PO SCH (21:14)
[2020-07-15] MEDS: hydrALAZINE 10 MG TABLET PO SCH (21:15)
[2020-07-15] MEDS: INSULIN LISPRO 300 UNITS/3 ML VIAL. SQ SCH (21:16)
[2020-07-15 22:14] LABS: BACTERIA,URINE 0 /HPF (0-FEW); BILIRUBIN,URINE NEG (NEG); CLARITY,URINE CLEAR; COLOR,URINE YELLOW; GLUCOSE,URINE >=1000 mg/dL (NEG); NITRITE,URINE NEG (NEG); RBC,URINE 0 /HPF (0-2); UROBILINOGEN,URINE 0.2 mg/dL (0.2 mg/dL); WBC,URINE 0 /HPF (0-4)
[2020-07-15] MEDS ORDERED: REMDESIVIR LOAD in IV NORMAL SALINE 250ML TV IV ONE (22:15)
[2020-07-15] MEDS ORDERED: FUROSEMIDE 20 MG/2 ML VIAL IVP ONE (22:15)
[2020-07-15 23:09] VITALS: BP 164/83
--- NOTE | 2020-07-16 03:26 | NUR ---
Fall Note: Staff heard a noise coming from pt's room, pt found on floor next to bed on his belly, no c/o pain per pt report, only noted abrasion is to right knee (nickel size). Per pt report he was sitting on the side of the bed to urinate using the urinal and stood for just a minute to adjust himself. building maintenance supervisor notified. Three staff members got pt back to bed using the lift. Will notify physician in the am.
--- NOTE | 2020-07-16 06:03 | NUR ---
Shift Note: Pt a/o x4, BP slightly elevated at 162/87 this am, HR 70, RR 34, Temp 99.6, pt requiring oxygen at 5 L NC to keep sat at 90% (advised pt would be beneficial if his would bring his cpap into hospital, adv pt I would discuss with her this morning), pt voiding clear yellow urine, pt did have a fall about 0300 (see previous note). Physician notified this morning of fall (no orders received). Pt's notified this am of fall and request for cpap. Remdesivir started last night (education provided to pt).
--- NOTE | 2020-07-16 06:17 | NUR ---
Left Message for CM to call pt's , Rufina, regarding DPOA and DNR forms.
[2020-07-16 06:28] LABS: BASO % 0 % (0-3); EOS % 0 % (0-3); HEMATOCRIT 38.2 % (39.0-53.0); HEMOGLOBIN 12.1 g/dL (13.0-17.5); LYMPH # 0.6 x10^3/uL (1.0-4.8); LYMPH % 5 % (24-48); MEAN CORPUSCULAR HEMOGLOBIN 29 pg (25-35); MEAN CORPUSCULAR HGB CONC 32 g/dL (31-37); MEAN CORPUSCULAR VOLUME 92 fL (79-100); MONO # 0.6 x10^3/uL (0.0-1.1); MONO % 6 % (0-9); NEUT % 89 % (31-73); PLATELET COUNT 242 x10^3/uL (140-400); RED BLOOD COUNT 4.14 x10^6/uL (4.30-5.70); RED CELL DISTRIBUTION WIDTH 14.9 % (11.5-14.5); WHITE BLOOD COUNT 11.3 x10^3/uL (4.0-11.0)
[2020-07-16 06:43] LABS: ALBUMIN 2.2 g/dL (3.4-5.0); ALBUMIN/GLOBULIN RATIO 0.5 (1.0-1.7); CALCIUM 8.2 mg/dL (8.5-10.1); CREATININE 1.8 mg/dL (0.7-1.3); GFR 37.7; POTASSIUM 3.5 mmol/L (3.5-5.1); TOTAL BILIRUBIN 0.2 mg/dL (0.2-1.0); TOTAL PROTEIN 6.7 g/dL (6.4-8.2)
[2020-07-16 07:00] VITALS: BP 164/68
--- NOTE | 2020-07-16 07:28 | RAD ---
CHEST AP ONLY History: Reason: chf, covid +, short of air / Spl. Instructions: / History: Comparison: July 15, 2020 Findings: Increased diffuse pulmonary opacities. No pleural effusion. No pneumothorax. Unchanged left-sided pacemaker. Unchanged heart size. Impression: 1. Increased diffuse pulmonary opacities. Electronically signed by: Zeke Lord DO (07/16/2020 7:25 AM) [id number]
[2020-07-16] MEDS: INSULIN LISPRO 300 UNITS/3 ML VIAL. SQ SCH ×8 (07:30→20:51)
--- NOTE | 2020-07-16 07:52 | PDOC2 ---
CARDIAC CONSULT DATE OF CONSULT DOS: DATE: 07/16/20 TIME: 07:50 REASON FOR CONSULT Reason for Consult CHF REFERRING PHYSICIAN Referring Physician Dr. Carranza SOURCE Source: Chart review, Patient HPI History of Present Illness This is a 69 yo male who presented secondary to shortness of breath, nasal congestion, and dry cough. Was diagnosed with COVID 07/06/20. Presented to his PCP for evaluation. CXR was concerning so she was referred to the ED for further evaluation and treatment. Denies any chest pain, palpitations, dizziness, diaphoresis, or nausea/vomiting. SOA slightly improve, but persists. PAST MEDICAL HISTORY Past Medical History 1. Diastolic heart failure and significant morbid obesity. 2. CKD 3. Hypertension. 4. Diabetes. 5. Dyslipidemia. 6. Obstructive sleep apnea. 7. SSS s/p PPM 8. AFIB PAST SURGICAL HISTORY Past Surgical History Pacemaker, Colectomy FAMILY HISTORY Family History: Heart Disease SOCIAL HISTORY Social History Smoke: No ALCOHOL: rare Drugs: None Lives: with Family CURRENT MEDICATIONS Current Medications Current Medications Azithromycin 500 mg/Sodium Chloride 250 ml @ 250 mls/hr 1X ONCE IV Last administered on 07/15/20at 14:34; Start 07/15/20 at 13:45; Stop 07/15/20 at 14 :44; Status DC Ceftriaxone Sodium 2 gm/ Sodium Chloride 100 ml @ 200 mls/hr 1X ONCE IV Last administered on 07/15/20at 13:45; Start 07/15/20 at 13:45; Stop 07/15/20 at 14:14; Status DC Acetaminophen (Tylenol) 650 mg PRN Q4HRS PRN PO FEVER > 100.3'F; Start 07/15/20 at 13:45; Stop 07/16/20 at 13:44; Status Cancel Sodium Chloride 250 ml @ As Directed STK-MED ONCE .ROUTE ; Start 07/15/20 at 13:47; Stop 07/15/20 at 13:47; Status DC Azithromycin (Zithromax) 500 mg STK-MED ONCE IV ; Start 07/15/20 at 13:47; Stop 07/15/20 at 13:47; Status DC Ceftriaxone Sodium (Rocephin) 2 gm STK-MED ONCE IV ; Start 07/15/20 at 13:47; Stop 07/15/20 at 13:47; Status DC Sodium Chloride 100 ml @ As Directed STK-MED ONCE .ROUTE ; Start 07/15/20 at 13:47; Stop 07/15/20 at 13:48; Status DC Ceftriaxone Sodium 1 gm/ Sodium Chloride 50 ml @ 100 mls/hr Q24H IV ; Start 07/16/20 at 09:00 Azithromycin 500 mg/Sodium Chloride 250 ml @ 250 mls/hr Q24H IV ; Start 07/16/20 at 09:00 Allopurinol (Zyloprim) 300 mg DAILY PO ; Start 07/16/20 at 09:00 Aspirin (Aspirin Chewable) 81 mg DAILY PO ; Start 07/16/20 at 09:00 Colchicine (Colcrys) 0.6 mg DAILY PO ; Start 07/16/20 at 09:00 Furosemide (Lasix) 40 mg DAILY PO ; Start 07/16/20 at 09:00 Carvedilol (Coreg) 25 mg BIDWMEALS PO Last administered on 07/15/20at 19:49; Start 07/15/20 at 18:00 Insulin Human Lispro (HumaLOG) 30 units TIDWMEALS SQ ; Start 07/15/20 at 08:00; Stop 07/15/20 at 18:22; Status DC Albuterol/ Ipratropium (Combivent Respimat 20-100 Mcg) 1 puff PRN QID PRN INH S OA; Start 07/15/20 at 17:45 Losartan Potassium (Cozaar) 100 mg DAILY PO ; Start 07/16/20 at 09:00 Pantoprazole Sodium (Protonix) 40 mg DAILY PO ; Start 07/16/20 at 09:00 Multivitamins/ Minerals (I-Stephania) 1 tab DAILY PO ; Start 07/16/20 at 09:00 Famotidine (Pepcid) 20 mg QHS PO Last administered on 07/15/20at 21:14; Start 07/15/20 at 21:00 Zinc Sulfate (Orazinc) 220 mg DAILY PO ; Start 07/16/20 at 09:00 Zolpidem Tartrate (Ambien) 5 mg PRN QHS PRN PO INSOMNIA, MAY REPEAT IN 1HR; Start 07/15/20 at 18:15 Acetaminophen (Tylenol) 500 mg PRN Q6HRS PRN PO MILD PAIN / TEMP > 100.3'F; Start 07/15/20 at 18:15 Enoxaparin Sodium (Lovenox 40mg Syringe) 40 mg Q24H SQ Last administered on 07/15/20at 19:49; Start 07/15/20 at 18:30 Hydralazine HCl (Apresoline) 10 mg TID PO Last administered on 07/15/20at 21:15; Start 07/15/20 at 21:00 Insulin Human Lispro (HumaLOG) 30 units TIDWMEALS SQ ; Start 07/16/20 at 08:00 Insulin Glargine (Lantus Syringe) 25 unit 1X SQ ; Start 07/15/20 at 21:00 Insulin Human Lispro (HumaLOG) 0-9 UNITS QIDACHS SQ Last administered on 07/15/20at 21:16; Start 07/15/20 at 21:00 Dextrose (Dextrose 50%-Water Syringe) 12.5 gm PRN Q15MIN PRN IV SEE COMMENTS; Start 07/16/20 at 08:00 Lactobacillus Rhamnosus (Culturelle) 1 cap BID PO ; Start 07/16/20 at 09:00 Albuterol Sulfate (Ventolin Hfa Inhaler) 2 puff PRN Q2HRS PRN INH soa; Start 07/15/20 at 22:00 Remdesivir 200 mg/ Sodium Chloride 210 ml @ 210 mls/hr 1X ONCE IV Last administered on 07/15/20at 22:36; Start 07/15/20 at 22:15; Stop 07/15/20 at 23:14; Status DC Remdesivir 100 mg/ Sodium Chloride 230 ml @ 460 mls/hr Q24H IV ; Start 07/16/20 at 22:00; Stop 07/19/20 at 22:29 Furosemide (Lasix) 20 mg 1X ONCE IVP Last administered on 07/15/20at 22:35; Start 07/15/20 at 22:15; Stop 07/15/20 at 22:16; Status DC Active Scripts Active Combivent Respimat Inhal (Ipratropium/Albuterol Sulfate) 4 Gm Aer.w.adap 1 Puff INH PRN QID PRN 30 Days Furosemide 40 Mg Tablet 40 Mg PO DAILY 30 Days Reported Vision Formula Tablet (Vit A/C/E/Zinc/Selenium/Copper) 1 Each Tablet 1 Each PO BID Humalog (Insulin Lispro) 100 Unit/1 Ml Vial 30 Unit SQ TIDWMEALS Take today with dinner meal. Colchicine 0.6 Mg Tablet 1-2 Tab PO PRN Take when needed for gout pain. Losartan Potassium 100 Mg Tablet 1 Tab PO DAILY Take tomorrow morning. Simvastatin 40 Mg Tablet 1 Tab PO QHS Take today at bedtime. Allopurinol 300 Mg Tablet 1 Tab PO DAILY Take tomorrow morning Omeprazole Magnesium 20 Mg Capsule.dr 1 Cap PO DAILY 30 Days Take tomorrow morning. Carvedilol 25 Mg Tablet 25 Mg PO BID Take this evening. Aspirin 81 Mg Tab.chew 81 Mg PO DAILY Take tomorrow morning. ALLERGIES Allergies: Coded Allergies: No Known Drug Allergies (Unverified , 09/07/14) ROS Review of Systems 14 point ROS conducted with pertinent positives noted above in HPI PHYSICAL EXAM Physical Exam General: Alert, Oriented X3, Cooperative, No acute distress HEENT: Atraumatic, Mucous membr. moist/pink Lungs: Other (on NC, CXR reviewed ) Heart: Regular rate (tele SR) Abdomen: Soft, No tenderness Extremities: Other (1+ bilateral LE edema ) Skin: No breakdown Neuro: Normal speech, Sensation intact Psych/Mental Status: Mental status NL, Mood NL MUSCULOSKELETAL: Osteoarthritic changes both hands<Conclusion> VITALS Vital Signs Vital Signs Date Time Temp Pulse Resp B/P (MAP) Pulse Ox O2 Delivery O2 Flow Rate FiO2 07/15/20 23:09 97.9 66 19 164/83 (110) 95 Nasal Cannula 3.0 LABS LABS Laboratory Tests Test 07/15/20 12:47 07/15/20 13:40 07/15/20 18:33 07/15/20 19:57 White Blood Count 9.0 x10^3/uL (4.0-11.0) Red Blood Count 4.17 x10^6/uL (4.30-5.70) Hemoglobin 12.4 g/dL (13.0-17.5) Hematocrit 38.7 % (39.0-53.0) Mean Corpuscular Volume 93 fL (79-100) Mean Corpuscular Hemoglobin 30 pg (25-35) Mean Corpuscular Hemoglobin Concent 32 g/dL (31-37) Red Cell Distribution Width 15.3 % (11.5-14.5) Platelet Count 236 x10^3/uL (140-400) Neutrophils (%) (Auto) 84 % (31-73) Lymphocytes (%) (Auto) 10 % (24-48) Monocytes (%) (Auto) 6 % (0-9) Eosinophils (%) (Auto) 0 % (0-3) Basophils (%) (Auto) 0 % (0-3) Neutrophils # (Auto) 7.5 x10^3uL (1.8-7.7) Lymphocytes # (Auto) 0.9 x10^3/uL (1.0-4.8) Monocytes # (Auto) 0.6 x10^3/uL (0.0-1.1) Eosinophils # (Auto) 0.0 x10^3/uL (0.0-0.7) Basophils # (Auto) 0.0 x10^3/uL (0.0-0.2) Sodium Level 131 mmol/L (136-145) Potassium Level 3.9 mmol/L (3.5-5.1) Chloride Level 96 mmol/L (98-107) Carbon Dioxide Level 25 mmol/L (21-32) Anion Gap 10 (6-14) Blood Urea Nitrogen 46 mg/dL (8-26) Creatinine 1.9 mg/dL (0.7-1.3) Estimated GFR (Cockcroft-Gault) 35.4 BUN/Creatinine Ratio 24 (6-20) Glucose Level 248 mg/dL (70-99) Calcium Level 8.4 mg/dL (8.5-10.1) Total Bilirubin 0.4 mg/dL (0.2-1.0) Aspartate Amino Transf (AST/SGOT) 41 U/L (15-37) Alanine Aminotransferase (ALT/SGPT) 46 U/L (16-63) Alkaline Phosphatase 82 U/L (46-116) Troponin I Quantitative < 0.017 ng/mL (0-0.055) Total Protein 6.9 g/dL (6.4-8.2) Albumin 2.3 g/dL (3.4-5.0) Albumin/Globulin Ratio 0.5 (1.0-1.7) Lactic Acid Level 1.3 mmol/L (0.4-2.0) D-Dimer (Betzy) 0.50 mg/L (0.00-0.50) Creatine Kinase 48 U/L (39-308) KP-Sqn-[id number]-Type Natriuretic Peptide 3499 pg/mL (0-124) Glucose (Fingerstick) 468 mg/dL (70-99) Test 07/15/20 20:20 07/16/20 05:30 Urine Collection Type Unknown Urine Color Yellow Urine Clarity Clear Urine pH 5.5 Urine Specific [place] 1.020 Urine Protein >100 mg/dl (NEG-TRACE) Urine Glucose (UA) >=1000 mg/dL (NEG) Urine Ketones (Stick) Neg mg/dL (NEG) Urine Blood Small (NEG) Urine Nitrite Neg (NEG) Urine Bilirubin Neg (NEG) Urine Urobilinogen Dipstick 0.2 mg/dL (0.2 mg/dL) Urine Leukocyte Esterase Neg (NEG) Urine RBC 0 /HPF (0-2) Urine WBC 0 /HPF (0-4) Urine Squamous Epithelial Cells None /LPF Urine Bacteria 0 /HPF (0-FEW) White Blood Count 11.3 x10^3/uL (4.0-11.0) Red Blood Count 4.14 x10^6/uL (4.30-5.70) Hemoglobin 12.1 g/dL (13.0-17.5) Hematocrit 38.2 % (39.0-53.0) Mean Corpuscular Volume 92 fL (79-100) Mean Corpuscular Hemoglobin 29 pg (25-35) Mean Corpuscular Hemoglobin Concent 32 g/dL (31-37) Red Cell Distribution Width 14.9 % (11.5-14.5) Platelet Count 242 x10^3/uL (140-400) Neutrophils (%) (Auto) 89 % (31-73) Lymphocytes (%) (Auto) 5 % (24-48) Monocytes (%) (Auto) 6 % (0-9) Eosinophils (%) (Auto) 0 % (0-3) Basophils (%) (Auto) 0 % (0-3) Neutrophils # (Auto) 10.0 x10^3uL (1.8-7.7) Lymphocytes # (Auto) 0.6 x10^3/uL (1.0-4.8) Monocytes # (Auto) 0.6 x10^3/uL (0.0-1.1) Eosinophils # (Auto) 0.0 x10^3/uL (0.0-0.7) Basophils # (Auto) 0.0 x10^3/uL (0.0-0.2) Sodium Level 135 mmol/L (136-145) Potassium Level 3.5 mmol/L (3.5-5.1) Chloride Level 100 mmol/L (98-107) Carbon Dioxide Level 26 mmol/L (21-32) Anion Gap 9 (6-14) Blood Urea Nitrogen 49 mg/dL (8-26) Creatinine 1.8 mg/dL (0.7-1.3) Estimated GFR (Cockcroft-Gault) 37.7 BUN/Creatinine Ratio 27 (6-20) Glucose Level 191 mg/dL (70-99) Calcium Level 8.2 mg/dL (8.5-10.1) Total Bilirubin 0.2 mg/dL (0.2-1.0) Aspartate Amino Transf (AST/SGOT) 29 U/L (15-37) Alanine Aminotransferase (ALT/SGPT) 46 U/L (16-63) Alkaline Phosphatase 79 U/L (46-116) Total Protein 6.7 g/dL (6.4-8.2) Albumin 2.2 g/dL (3.4-5.0) Albumin/Globulin Ratio 0.5 (1.0-1.7) ECHOCARDIOGRAM Echocardiogram Technically difficult study. The left ventricular systolic function is normal. The Ejection Fraction is 55%. There is normal LV segmental wall motion. There is a pacemaker lead in the right atrium and right ventricle. Trace tricuspid regurgitation with an estimated PAP of 33 mmHg. There is no evidence of significant pericardial effusion. DATE: 08/18/19 1601 ASSESSMENT/PLAN Assessment/Plan 1. Acute on chronic respiratory failure with CHF and COVID PNA 2. Acute on chronic diastolic heart failure. Echo 09/04 with preserved LV systolic function 2. Accelerated hypertension; labile 3. Diabetes, II 4. Dyslipidemia. 5. MG on CKD 6. PAFIB; maintaining SR. Low AFIB burden, not on OAC p 7. SSS s/p PPM (Prepmatictronic); device check 11/02 with normal function. Established care with Dr. Arredondo recently. 8. Obstructive sleep apnea, morbid obesity; CPAP 9. Lactic acidosis Recommendations Diuresis with monitoring of renal function HF optimization with coreg, losartan, and lasix Increase hydralazine for BP control Rate controlled with BB therapy ASA therapy. Not on OAC with low AFIB burden per [facility] record review Lovenox prophylactic as inpatient Will obtain most recent device download to note AFIB burden Outpatient echo as ordered Ongoing lung optimization, treatment of COVID PNA Supportive care ANGELINA SEVILLA APRN Jul 16, 2020 07:52
[2020-07-16] MEDS: ALBUTEROL SULFATE 8GM INHALER. INH PRN (08:00)
[2020-07-16] MEDS ORDERED: DEXTROSE 50% 25 GM / 50ML DISP.SYRIN. IV PRN (08:00)
[2020-07-16] MEDS: IPRATROPIUM/ALBUTEROL 20/100mcg/INH INHALER. INH PRN ×2 (08:00→21:00)
[2020-07-16] MEDS: ZINC SULFATE 220 MG CAPSULE. PO SCH (08:02)
[2020-07-16] MEDS: ENOXAPARIN 40 MG/0.4 ML SYRINGE. SQ SCH (08:02)
[2020-07-16] MEDS: LACTOBACILLUS RHAMNOSUS GG 1 CAPSULE. PO SCH ×2 (08:03→20:59)
[2020-07-16] MEDS: ALLOPURINOL 300 MG TABLET. PO SCH (08:03)
[2020-07-16] MEDS: FUROSEMIDE 40 MG TABLET PO SCH (08:03)
[2020-07-16] MEDS: PANTOPRAZOLE 40 MG TABLET. PO SCH (08:03)
[2020-07-16] MEDS: MULTIVITAMIN I-VITE TABLET. PO SCH (08:03)
[2020-07-16] MEDS: hydrALAZINE 10 MG TABLET PO SCH (08:04)
[2020-07-16] MEDS: LOSARTAN 50 MG TABLET. PO SCH (08:04)
[2020-07-16] MEDS: ASPIRIN CHEWABLE 81 MG TABLET. PO SCH (08:04)
[2020-07-16] MEDS: CARVEDILOL 12.5 MG TABLET PO SCH ×2 (08:05→17:38)
[2020-07-16] MEDS ORDERED: AZITHROMYCIN 500 MG in IV NORMAL SALINE 250ML 250 ML IV SCH (09:00)
[2020-07-16] MEDS ORDERED: FUROSEMIDE 40 MG/4 ML VIAL IVP ONE (09:45)
[2020-07-16] MEDS ORDERED: HYDROcodone/CHLORPHEN POLIS 5 ML SUS.ER.12H PO PRN (10:00)
[2020-07-16] MEDS: COLCHICINE 0.6 MG TABLET. PO SCH (10:39)
[2020-07-16 11:00] VITALS: BP 162/72
[2020-07-16] MEDS: DEXAMETHASONE SOD PHOS 4 MG/ML VIAL. PO SCH ×3 (11:40→21:00)
[2020-07-16 15:00] VITALS: BP 148/70
[2020-07-16 19:00] VITALS: BP 115/57
[2020-07-16] MEDS: REMDESIVIR 100mg in NORMAL SALINE 250ML X 4 DAYS IV SCH (21:00)
[2020-07-16] MEDS: CHOLECALCIFEROL (VITAMIN D3) 1,000 UNIT TABLET PO SCH (21:00)
[2020-07-16] MEDS: FAMOTIDINE 20 MG TABLET PO SCH (21:00)
[2020-07-16 23:09] VITALS: BP 148/77
[2020-07-17] VITALS (7 sets, daily range): BP systolic 138–170; BP diastolic 62–81
--- NOTE | 2020-07-17 05:49 | NUR ---
Shift Note: Pt a/o x4, VSS (pt continues to require oxygen at 4.5 liters), pt did use his cpap at HS, no c/o pain or n/v, ivan draining clear yellow urine, BS last evening 142 (no ss coverage needed).
[2020-07-17 05:55] LABS: BASO % 0 % (0-3); EOS % 0 % (0-3); HEMATOCRIT 38.5 % (39.0-53.0); HEMOGLOBIN 12.2 g/dL (13.0-17.5); LYMPH # 0.6 x10^3/uL (1.0-4.8); LYMPH % 9 % (24-48); MEAN CORPUSCULAR HEMOGLOBIN 29 pg (25-35); MEAN CORPUSCULAR HGB CONC 32 g/dL (31-37); MEAN CORPUSCULAR VOLUME 93 fL (79-100); MONO # 0.2 x10^3/uL (0.0-1.1); MONO % 3 % (0-9); NEUT # 5.8 x10^3uL (1.8-7.7); NEUT % 88 % (31-73); PLATELET COUNT 243 x10^3/uL (140-400); RED BLOOD COUNT 4.16 x10^6/uL (4.30-5.70); WHITE BLOOD COUNT 6.6 x10^3/uL (4.0-11.0)
[2020-07-17 06:03] LABS: CALCIUM 8.2 mg/dL (8.5-10.1); CREATININE 1.6 mg/dL (0.7-1.3); GFR 43.2; POTASSIUM 3.7 mmol/L (3.5-5.1)
[2020-07-17] MEDS: INSULIN LISPRO 300 UNITS/3 ML VIAL. SQ SCH ×7 (07:30→21:18)
[2020-07-17] MEDS: ASPIRIN CHEWABLE 81 MG TABLET. PO SCH (08:14)
[2020-07-17] MEDS: PANTOPRAZOLE 40 MG TABLET. PO SCH (08:14)
[2020-07-17] MEDS: CHOLECALCIFEROL (VITAMIN D3) 1,000 UNIT TABLET PO SCH (08:14)
[2020-07-17] MEDS: ALLOPURINOL 300 MG TABLET. PO SCH (08:14)
[2020-07-17] MEDS: ZINC SULFATE 220 MG CAPSULE. PO SCH (08:14)
[2020-07-17] MEDS: LOSARTAN 50 MG TABLET. PO SCH (08:15)
[2020-07-17] MEDS: MULTIVITAMIN I-VITE TABLET. PO SCH (08:15)
[2020-07-17] MEDS: LACTOBACILLUS RHAMNOSUS GG 1 CAPSULE. PO SCH ×2 (08:15→21:15)
[2020-07-17] MEDS: CARVEDILOL 12.5 MG TABLET PO SCH ×2 (08:15→17:00)
[2020-07-17] MEDS: DEXAMETHASONE 4 MG TABLET PO SCH ×3 (08:16→21:15)
[2020-07-17] MEDS: FUROSEMIDE 40 MG TABLET PO SCH (08:16)
[2020-07-17] MEDS: AZITHROMYCIN 250 MG TABLET. PO SCH (08:16)
[2020-07-17] MEDS: COLCHICINE 0.6 MG TABLET. PO SCH (08:17)
[2020-07-17] MEDS: IPRATROPIUM/ALBUTEROL 20/100mcg/INH INHALER. INH PRN ×2 (08:23→21:15)
--- NOTE | 2020-07-17 08:48 | PDOC ---
ANGELINA SEVILLA FILEMON 07/17/20 0848: CARDIO Progress Notes Date & Time Date of Service DATE: 07/17/20 TIME: 08:39 Time of Evaluation 08:39 Subjective Notes SOA better, but persists Vitals Vitals Vital Signs Date Time Temp Pulse Resp B/P (MAP) Pulse Ox O2 Delivery O2 Flow Rate FiO2 07/17/20 08:16 97.0 70 22 170/76 (107) 90 Nasal Cannula 47.5 Weight Weight [ ] Input and Output I.O. Intake and Output 07/17/20 07:00 Intake Total 1530 ml Output Total 2950 ml Balance -1420 ml Intake Oral 1000 ml IV Total 530 ml Output Urine Total 2950 ml # Bowel Movements 1 Laboratory Labs Laboratory Tests Test 07/15/20 12:47 07/15/20 13:40 07/15/20 18:33 07/15/20 19:57 White Blood Count 9.0 x10^3/uL (4.0-11.0) Red Blood Count 4.17 x10^6/uL (4.30-5.70) Hemoglobin 12.4 g/dL (13.0-17.5) Hematocrit 38.7 % (39.0-53.0) Mean Corpuscular Volume 93 fL (79-100) Mean Corpuscular Hemoglobin 30 pg (25-35) Mean Corpuscular Hemoglobin Concent 32 g/dL (31-37) Red Cell Distribution Width 15.3 % (11.5-14.5) Platelet Count 236 x10^3/uL (140-400) Neutrophils (%) (Auto) 84 % (31-73) Lymphocytes (%) (Auto) 10 % (24-48) Monocytes (%) (Auto) 6 % (0-9) Eosinophils (%) (Auto) 0 % (0-3) Basophils (%) (Auto) 0 % (0-3) Neutrophils # (Auto) 7.5 x10^3uL (1.8-7.7) Lymphocytes # (Auto) 0.9 x10^3/uL (1.0-4.8) Monocytes # (Auto) 0.6 x10^3/uL (0.0-1.1) Eosinophils # (Auto) 0.0 x10^3/uL (0.0-0.7) Basophils # (Auto) 0.0 x10^3/uL (0.0-0.2) Sodium Level 131 mmol/L (136-145) Potassium Level 3.9 mmol/L (3.5-5.1) Chloride Level 96 mmol/L (98-107) Carbon Dioxide Level 25 mmol/L (21-32) Anion Gap 10 (6-14) Blood Urea Nitrogen 46 mg/dL (8-26) Creatinine 1.9 mg/dL (0.7-1.3) Estimated GFR (Cockcroft-Gault) 35.4 BUN/Creatinine Ratio 24 (6-20) Glucose Level 248 mg/dL (70-99) Calcium Level 8.4 mg/dL (8.5-10.1) Total Bilirubin 0.4 mg/dL (0.2-1.0) Aspartate Amino Transf (AST/SGOT) 41 U/L (15-37) Alanine Aminotransferase (ALT/SGPT) 46 U/L (16-63) Alkaline Phosphatase 82 U/L (46-116) Troponin I Quantitative < 0.017 ng/mL (0-0.055) Total Protein 6.9 g/dL (6.4-8.2) Albumin 2.3 g/dL (3.4-5.0) Albumin/Globulin Ratio 0.5 (1.0-1.7) Lactic Acid Level 1.3 mmol/L (0.4-2.0) D-Dimer (Betzy) 0.50 mg/L (0.00-0.50) Creatine Kinase 48 U/L (39-308) HD-Rgi-W-Type Natriuretic Peptide 3499 pg/mL (0-124) Glucose (Fingerstick) 468 mg/dL (70-99) Test 07/15/20 20:20 07/16/20 05:30 07/16/20 08:16 07/16/20 14:36 Urine Collection Type Unknown Urine Color Yellow Urine Clarity Clear Urine pH 5.5 Urine Specific [place] 1.020 Urine Protein >100 mg/dl (NEG-TRACE) Urine Glucose (UA) >=1000 mg/dL (NEG) Urine Ketones (Stick) Neg mg/dL (NEG) Urine Blood Small (NEG) Urine Nitrite Neg (NEG) Urine Bilirubin Neg (NEG) Urine Urobilinogen Dipstick 0.2 mg/dL (0.2 mg/dL) Urine Leukocyte Esterase Neg (NEG) Urine RBC 0 /HPF (0-2) Urine WBC 0 /HPF (0-4) Urine Squamous Epithelial Cells None /LPF Urine Bacteria 0 /HPF (0-FEW) White Blood Count 11.3 x10^3/uL (4.0-11.0) Red Blood Count 4.14 x10^6/uL (4.30-5.70) Hemoglobin 12.1 g/dL (13.0-17.5) Hematocrit 38.2 % (39.0-53.0) Mean Corpuscular Volume 92 fL (79-100) Mean Corpuscular Hemoglobin 29 pg (25-35) Mean Corpuscular Hemoglobin Concent 32 g/dL (31-37) Red Cell Distribution Width 14.9 % (11.5-14.5) Platelet Count 242 x10^3/uL (140-400) Neutrophils (%) (Auto) 89 % (31-73) Lymphocytes (%) (Auto) 5 % (24-48) Monocytes (%) (Auto) 6 % (0-9) Eosinophils (%) (Auto) 0 % (0-3) Basophils (%) (Auto) 0 % (0-3) Neutrophils # (Auto) 10.0 x10^3uL (1.8-7.7) Lymphocytes # (Auto) 0.6 x10^3/uL (1.0-4.8) Monocytes # (Auto) 0.6 x10^3/uL (0.0-1.1) Eosinophils # (Auto) 0.0 x10^3/uL (0.0-0.7) Basophils # (Auto) 0.0 x10^3/uL (0.0-0.2) Sodium Level 135 mmol/L (136-145) Potassium Level 3.5 mmol/L (3.5-5.1) Chloride Level 100 mmol/L (98-107) Carbon Dioxide Level 26 mmol/L (21-32) Anion Gap 9 (6-14) Blood Urea Nitrogen 49 mg/dL (8-26) Creatinine 1.8 mg/dL (0.7-1.3) Estimated GFR (Cockcroft-Gault) 37.7 BUN/Creatinine Ratio 27 (6-20) Glucose Level 191 mg/dL (70-99) Calcium Level 8.2 mg/dL (8.5-10.1) Total Bilirubin 0.2 mg/dL (0.2-1.0) Aspartate Amino Transf (AST/SGOT) 29 U/L (15-37) Alanine Aminotransferase (ALT/SGPT) 46 U/L (16-63) Alkaline Phosphatase 79 U/L (46-116) Total Protein 6.7 g/dL (6.4-8.2) Albumin 2.2 g/dL (3.4-5.0) Albumin/Globulin Ratio 0.5 (1.0-1.7) Glucose (Fingerstick) 181 mg/dL (70-99) 218 mg/dL (70-99) Test 07/16/20 17:46 07/16/20 20:48 07/17/20 05:20 07/17/20 07:47 Glucose (Fingerstick) 202 mg/dL (70-99) 142 mg/dL (70-99) 238 mg/dL (70-99) White Blood Count 6.6 x10^3/uL (4.0-11.0) Red Blood Count 4.16 x10^6/uL (4.30-5.70) Hemoglobin 12.2 g/dL (13.0-17.5) Hematocrit 38.5 % (39.0-53.0) Mean Corpuscular Volume 93 fL (79-100) Mean Corpuscular Hemoglobin 29 pg (25-35) Mean Corpuscular Hemoglobin Concent 32 g/dL (31-37) Red Cell Distribution Width 15.0 % (11.5-14.5) Platelet Count 243 x10^3/uL (140-400) Neutrophils (%) (Auto) 88 % (31-73) Lymphocytes (%) (Auto) 9 % (24-48) Monocytes (%) (Auto) 3 % (0-9) Eosinophils (%) (Auto) 0 % (0-3) Basophils (%) (Auto) 0 % (0-3) Neutrophils # (Auto) 5.8 x10^3uL (1.8-7.7) Lymphocytes # (Auto) 0.6 x10^3/uL (1.0-4.8) Monocytes # (Auto) 0.2 x10^3/uL (0.0-1.1) Eosinophils # (Auto) 0.0 x10^3/uL (0.0-0.7) Basophils # (Auto) 0.0 x10^3/uL (0.0-0.2) Sodium Level 137 mmol/L (136-145) Potassium Level 3.7 mmol/L (3.5-5.1) Chloride Level 103 mmol/L (98-107) Carbon Dioxide Level 26 mmol/L (21-32) Anion Gap 8 (6-14) Blood Urea Nitrogen 53 mg/dL (8-26) Creatinine 1.6 mg/dL (0.7-1.3) Estimated GFR (Cockcroft-Gault) 43.2 Glucose Level 185 mg/dL (70-99) Calcium Level 8.2 mg/dL (8.5-10.1) Microbiology Micro Microbiology 07/15/20 Blood Culture - Preliminary, Resulted NO GROWTH AFTER 1 DAY... Physical Exams HEENT: Neck Supple W Full Motion Chest: Symmetric Lungs: Other (on 4.5 L NC. CXR reviewed ) Heart: RRR (a-pacing ) Abdomen: Other (non-distended ) Extremities: Other (trace bilateral LE edema ) Neurology: alert, oriented, follow commands Assessment Assessment 1. Acute on chronic respiratory failure with CHF and COVID PNA 2. Acute on chronic diastolic heart failure. Echo 09/04 with preserved LV systolic function 2. Accelerated hypertension; labile 3. Diabetes, II 4. Dyslipidemia; LDL 52 5. MG on CKD; improved 6. PAFIB; maintaining SR. Low AFIB burden 7. SSS s/p PPM ([employer]); device check 11/02 with normal function. Established care with Dr. Arredondo recently. 8. Obstructive sleep apnea, morbid obesity; CPAP 9. Lactic acidosis Recommendations HF optimization with coreg, losartan, and lasix Additional Lasix PRN Add amlodipine if BP remains elevated Rate controlled with BB ASA therapy. Will obtain most recent device download to note AFIB burden. D/w national insurance officer; transfer from requested. Outpatient echo as ordered Ongoing lung optimization, treatment of COVID PNA Supportive carecord review Lovenox prophylactic as inpatient GOPAL ARREDONDO MD 07/18/20 0909: CARDIO Progress Notes Plan Plan Late entry for 07/17/2020 pt. seen and examined. Agree with above UMBRELLA MENDER note. Supportive care. continue diuresis. ANGELINA SEVILLA APRN Jul 17, 2020 08:48 GOPAL ARREDONDO MD Jul 18, 2020 09:09
[2020-07-17] MEDS ORDERED: NITROGLYCERIN OINT 1 GM PACKET. TP ONE (09:30)
[2020-07-17] MEDS ORDERED: HYDROcodone/CHLORPHEN POLIS 5 ML SUS.ER.12H PO ONE (10:15)
[2020-07-17] MEDS ORDERED: HYDROcodone/CHLORPHEN POLIS 5 ML SUS.ER.12H PO PRN (10:15)
[2020-07-17] MEDS: NITROGLYCERIN OINT 1 GM PACKET. TP SCH ×2 (14:00→21:16)
--- NOTE | 2020-07-17 20:34 | PN ---
DATE: SUBJECTIVE: A 69-year-old male admitted with sepsis, COVID-19 pneumonia, type 2 diabetes, morbid obesity, multiple risk factors and also possibly acute on top of chronic congestive heart failure, cardiomyopathy. The patient otherwise says he is feeling a little better today, but is still quite significantly ill. He is in the ICU. He is requiring 4.5 liters to maintain his oxygen in the low 90s. OBJECTIVE: VITAL SIGNS: Blood pressure approximately 110/60, respiratory rate 18, pulse 60, presently afebrile, actually on the low side at 96.1. The patient as noted says he is better. GENERAL: The patient is alert and oriented. HEENT: ____ poor dentition. NECK: Supple. LUNGS: Diminished. Some crackles noted in the bases with rales. CARDIOVASCULAR: Regular sinus rhythm. ABDOMEN: Protuberant, obese. EXTREMITIES: No clubbing, cyanosis, +1 to 2 pitting edema. Pulses noted distally. NEUROLOGIC: Alert and oriented, baseline mentation there. LABORATORY DATA: The patient's white count 11, hemoglobin 12 and hematocrit 38. Sodium and potassium 135 and 3.5. Blood sugars are under better control. BUN and creatinine of 49 and 1.8 with an albumin of 2.2. His BNP was approximately 3500. The patient will continue on present drug regimen. He received some IV Lasix. He is on dexamethasone, azithromycin, remdesivir and Lovenox ____ other medications. The patient has also been seen by Cardiology. IMPRESSION: Sepsis, pneumonia secondary to COVID-19, acute respiratory distress, acute on chronic diastolic heart failure, morbid obesity, type 2 diabetes, severe protein malnutrition, chronic kidney disease stage 3B, proteinuria. PLAN: The patient will continue on present drug regimen. Continue possible IV Lasix. Chest x-ray shows continued worsening somewhat of the pulmonary infiltrates, although clinically the patient says he feels somewhat better and we will continue to monitor him accordingly as we progress. The patient has been adjusted on his blood pressure medications per Cardiology, although they are running a little bit on the high side presently, but we will continue to monitor him on present drug regimen here in the ICU. LONI CHISHOLM MD DR: PABLO/tenisha JOB#: [id number] / [id number]
[2020-07-17] MEDS: INSULIN GLARGINE SYRINGE. SQ SCH (21:00)
[2020-07-17] MEDS: FAMOTIDINE 20 MG TABLET PO SCH (21:15)
[2020-07-17] MEDS: ALBUTEROL SULFATE 8GM INHALER. INH PRN (21:15)
[2020-07-17] MEDS: ENOXAPARIN ** NOTE DOSE ** SYRINGE SQ SCH (21:16)
[2020-07-17] MEDS: REMDESIVIR 100mg in NORMAL SALINE 250ML X 4 DAYS IV SCH (21:17)
[2020-07-18] VITALS (7 sets, daily range): BP systolic 97–156; BP diastolic 50–77
[2020-07-18] MEDS: NITROGLYCERIN OINT 1 GM PACKET. TP SCH ×3 (05:04→21:04)
[2020-07-18 06:54] LABS: ALBUMIN/GLOBULIN RATIO 0.4 (1.0-1.7); CALCIUM 8.5 mg/dL (8.5-10.1); CREATININE 1.7 mg/dL (0.7-1.3); GFR 40.3; POTASSIUM 3.7 mmol/L (3.5-5.1); TOTAL BILIRUBIN 0.2 mg/dL (0.2-1.0); TOTAL PROTEIN 6.5 g/dL (6.4-8.2)
[2020-07-18] MEDS: PANTOPRAZOLE 40 MG TABLET. PO SCH ×2 (08:41→10:38)
[2020-07-18] MEDS: CARVEDILOL 12.5 MG TABLET PO SCH ×2 (08:41→17:12)
[2020-07-18] MEDS: INSULIN LISPRO 300 UNITS/3 ML VIAL. SQ SCH ×7 (08:43→21:05)
[2020-07-18] MEDS: COLCHICINE 0.6 MG TABLET. PO SCH ×2 (09:00→10:38)
--- NOTE | 2020-07-18 09:19 | PDOC ---
CARDIO Progress Notes Date & Time Date of Service DATE: 07/18/20 TIME: 09:18 Time of Evaluation 09:18 Subjective Notes Not more SOA Vitals Vitals Vital Signs Date Time Temp Pulse Resp B/P (MAP) Pulse Ox O2 Delivery O2 Flow Rate FiO2 07/18/20 08:41 63 142/77 07/18/20 05:28 98.3 17 93 Nasal Cannula 5.0 Weight Weight [ ] Input and Output I.O. Intake and Output 07/18/20 07:00 Intake Total 1840 ml Output Total 2225 ml Balance -385 ml Intake Oral 1560 ml IV Total 280 ml Output Urine Total 2225 ml Laboratory Labs Laboratory Tests Test 07/16/20 14:36 07/16/20 17:46 07/16/20 20:48 07/17/20 05:20 Glucose (Fingerstick) 218 mg/dL (70-99) 202 mg/dL (70-99) 142 mg/dL (70-99) White Blood Count 6.6 x10^3/uL (4.0-11.0) Red Blood Count 4.16 x10^6/uL (4.30-5.70) Hemoglobin 12.2 g/dL (13.0-17.5) Hematocrit 38.5 % (39.0-53.0) Mean Corpuscular Volume 93 fL (79-100) Mean Corpuscular Hemoglobin 29 pg (25-35) Mean Corpuscular Hemoglobin Concent 32 g/dL (31-37) Red Cell Distribution Width 15.0 % (11.5-14.5) Platelet Count 243 x10^3/uL (140-400) Neutrophils (%) (Auto) 88 % (31-73) Lymphocytes (%) (Auto) 9 % (24-48) Monocytes (%) (Auto) 3 % (0-9) Eosinophils (%) (Auto) 0 % (0-3) Basophils (%) (Auto) 0 % (0-3) Neutrophils # (Auto) 5.8 x10^3uL (1.8-7.7) Lymphocytes # (Auto) 0.6 x10^3/uL (1.0-4.8) Monocytes # (Auto) 0.2 x10^3/uL (0.0-1.1) Eosinophils # (Auto) 0.0 x10^3/uL (0.0-0.7) Basophils # (Auto) 0.0 x10^3/uL (0.0-0.2) Sodium Level 137 mmol/L (136-145) Potassium Level 3.7 mmol/L (3.5-5.1) Chloride Level 103 mmol/L (98-107) Carbon Dioxide Level 26 mmol/L (21-32) Anion Gap 8 (6-14) Blood Urea Nitrogen 53 mg/dL (8-26) Creatinine 1.6 mg/dL (0.7-1.3) Estimated GFR (Cockcroft-Gault) 43.2 Glucose Level 185 mg/dL (70-99) Calcium Level 8.2 mg/dL (8.5-10.1) Test 07/17/20 07:47 07/17/20 11:53 07/17/20 16:48 07/17/20 20:41 Glucose (Fingerstick) 238 mg/dL (70-99) 250 mg/dL (70-99) 251 mg/dL (70-99) 236 mg/dL (70-99) Test 07/18/20 05:15 07/18/20 08:01 Sodium Level 134 mmol/L (136-145) Potassium Level 3.7 mmol/L (3.5-5.1) Chloride Level 101 mmol/L (98-107) Carbon Dioxide Level 25 mmol/L (21-32) Anion Gap 8 (6-14) Blood Urea Nitrogen 59 mg/dL (8-26) Creatinine 1.7 mg/dL (0.7-1.3) Estimated GFR (Cockcroft-Gault) 40.3 BUN/Creatinine Ratio 35 (6-20) Glucose Level 228 mg/dL (70-99) Calcium Level 8.5 mg/dL (8.5-10.1) Total Bilirubin 0.2 mg/dL (0.2-1.0) Aspartate Amino Transf (AST/SGOT) 34 U/L (15-37) Alanine Aminotransferase (ALT/SGPT) 44 U/L (16-63) Alkaline Phosphatase 70 U/L (46-116) Total Protein 6.5 g/dL (6.4-8.2) Albumin 2.0 g/dL (3.4-5.0) Albumin/Globulin Ratio 0.4 (1.0-1.7) Glucose (Fingerstick) 234 mg/dL (70-99) Microbiology Micro Microbiology 07/15/20 Blood Culture - Preliminary, Resulted NO GROWTH AFTER 2 DAYS... Physical Exams HEENT: Neck Supple W Full Motion Chest: Symmetric Lungs: Other (on 5 L NC. CXR reviewed ) Heart: RRR (a-pacing ) Abdomen: Other (non-distended ) Extremities: Other (trace bilateral LE edema ) Neurology: alert, oriented, follow commands Assessment Assessment 1. Acute on chronic respiratory failure with CHF and COVID PNA 2. Acute on chronic diastolic heart failure. Echo 09/04 with preserved LV systolic function 2. Accelerated hypertension; labile 3. Diabetes, II 4. Dyslipidemia; LDL 52 5. MG on CKD; improved 6. PAFIB; maintaining SR. Low AFIB burden 7. SSS s/p PPM (Medtronic); device check 11/02 with normal function. Established care with Dr. Arredondo recently. 8. Obstructive sleep apnea, morbid obesity; CPAP 9. Lactic acidosis Recommendations HF optimization with coreg, losartan, and lasix Will give additional dose of IV Lasix today Rate controlled with BB ASA therapy. Lovenox prophylactic as inpatient Outpatient echo as ordered Ongoing lung optimization, treatment of COVID PNA Supportive care ANGELINA SEVILLA APRN Jul 18, 2020 09:19
--- NOTE | 2020-07-18 09:20 | RAD ---
INDICATION: Reason: Increased SOA Increased 02 needs / Spl. Instructions: / History: COMPARISON: July 16, 2020 FINDINGS: Single view of chest obtained. Pacemaker is seen. Enlarged cardiac silhouette as well as fullness of the bilateral pulmonary hilum. Patchy opacities in the bilateral lungs again seen IMPRESSION: * Patchy opacities bilaterally appear slightly decreased from prior. Could be from edema or infiltrate. Electronically signed by: Doug Jo MD (07/18/2020 9:16 AM) [id number]
[2020-07-18] MEDS ORDERED: FUROSEMIDE 40 MG/4 ML VIAL IVP ONE (09:45)
[2020-07-18] MEDS ORDERED: POTASSIUM CHLORIDE 20 MEQ TABLET.ER. PO ONE (09:45)
[2020-07-18] MEDS: LACTOBACILLUS RHAMNOSUS GG 1 CAPSULE. PO SCH ×2 (10:36→21:04)
[2020-07-18] MEDS: ENOXAPARIN ** NOTE DOSE ** SYRINGE SQ SCH ×2 (10:36→21:04)
[2020-07-18] MEDS: LOSARTAN 50 MG TABLET. PO SCH (10:37)
[2020-07-18] MEDS: AZITHROMYCIN 250 MG TABLET. PO SCH (10:37)
[2020-07-18] MEDS: DEXAMETHASONE 4 MG TABLET PO SCH ×3 (10:37→21:04)
[2020-07-18] MEDS: CHOLECALCIFEROL (VITAMIN D3) 1,000 UNIT TABLET PO SCH (10:38)
[2020-07-18] MEDS: ZINC SULFATE 220 MG CAPSULE. PO SCH (10:38)
[2020-07-18] MEDS: MULTIVITAMIN I-VITE TABLET. PO SCH (10:38)
[2020-07-18] MEDS: ALLOPURINOL 300 MG TABLET. PO SCH (10:38)
[2020-07-18] MEDS: FUROSEMIDE 40 MG TABLET PO SCH (10:38)
[2020-07-18] MEDS: ASPIRIN CHEWABLE 81 MG TABLET. PO SCH (10:38)
[2020-07-18] MEDS: IPRATROPIUM/ALBUTEROL 20/100mcg/INH INHALER. INH SCH ×4 (10:39→21:03)
[2020-07-18] MEDS: ALBUTEROL SULFATE 8GM INHALER. INH SCH ×4 (10:39→21:03)
[2020-07-18] MEDS: INSULIN GLARGINE SYRINGE. SQ SCH ×2 (11:05→21:00)
--- NOTE | 2020-07-18 20:06 | PN ---
DATE: SUBJECTIVE: A 69-year-old gentleman here with COVID-19 pneumonia. The patient also may have had some mild congestive heart failure as well. The patient notes he is improved. He is feeling much better. He has had good diuresis with some Lasix as well as remdesivir for the COVID-19. The patient seems to be under better control overall and making good progress. He has history of atrial fibrillation as well as of course, his diabetes and other multiple medical problems, but overall he seems to be improving. Cardiology has also reviewed the patient. PHYSICAL EXAMINATION: VITAL SIGNS: Blood pressure 138/62, respiratory rate 23, pulse 60, afebrile. GENERAL: The patient was alert and oriented. LUNGS: Diminished. CARDIOVASCULAR: Irregularly irregular. ABDOMEN: Protuberant, soft, nontender. EXTREMITIES: No clubbing, cyanosis. Trace edema. The patient will be admitted. Continue with present drug therapy of remdesivir, Lasix and the like for his multiple medical problems and control his diabetes as well. LABORATORY DATA: The patient's hemoglobin is remaining stable and blood sugars are running in the 250s, probably Decadron and we will probably end up reducing that as he is showing excellent signs of improvement. IMPRESSION: COVID-19 pneumonia, chronic diastolic heart failure, morbid obesity, accelerated hypertension, dyslipidemia, chronic kidney disease, sick sinus syndrome with Medtronic pacemaker rechecked in October of this year, obstructive sleep apnea, morbid obesity as noted on CPAP and lactic acidosis. PLAN: Continue with present drug regimen and make adjustments on his medications for his blood sugar. Otherwise, we will continue to monitor him accordingly. LONI CHISHOLM MD DR: PABLO/tenisha JOB#: [id number] / [id number]
[2020-07-18] MEDS: REMDESIVIR 100mg in NORMAL SALINE 250ML X 4 DAYS IV SCH (21:03)
[2020-07-18] MEDS: FAMOTIDINE 20 MG TABLET PO SCH (21:04)
[2020-07-19] MEDS: ALBUTEROL SULFATE 8GM INHALER. INH SCH ×5 (05:07→22:30)
[2020-07-19] MEDS: IPRATROPIUM/ALBUTEROL 20/100mcg/INH INHALER. INH SCH ×5 (05:07→22:30)
[2020-07-19] MEDS: NITROGLYCERIN OINT 1 GM PACKET. TP SCH ×3 (05:07→22:31)
--- NOTE | 2020-07-19 05:41 | NUR ---
Shift Note: Pt a/o x4, VSS (pt was on BIPAP at HS 16/6 50% FiO2 and sating 95-96%, this morning pt is on 6 liters NC and sating 90-93%), pt stated he slept well on the BIPAP, ivan catheter draining clear yellow urine (will need to assess if pt continues to desat with activity getting up to use BSC and cont. need for ivan), pt using inhalers q4hrs while awake and states "they seem to help", pt states "I am feeling a bit better this morning". Addendum: 07/19/20 at 05 by ARMANDO GUADALUPE RN Advised pt that although today he will receive his last dose of remdesivir at 2200 he is still requiring oxygen to maintain his oxygen saturations >90% (pt was anticipating discharge once remdesivir was completed).
[2020-07-19 06:07] VITALS: BP 141/65
[2020-07-19 06:13] LABS: ALBUMIN 2.1 g/dL (3.4-5.0); ALBUMIN/GLOBULIN RATIO 0.5 (1.0-1.7); CALCIUM 8.3 mg/dL (8.5-10.1); CREATININE 1.8 mg/dL (0.7-1.3); GFR 37.7; POTASSIUM 3.7 mmol/L (3.5-5.1); TOTAL BILIRUBIN 0.2 mg/dL (0.2-1.0); TOTAL PROTEIN 6.4 g/dL (6.4-8.2)
[2020-07-19] MEDS: INSULIN LISPRO 300 UNITS/3 ML VIAL. SQ SCH ×7 (08:00→22:50)
[2020-07-19] MEDS: CARVEDILOL 12.5 MG TABLET PO SCH ×2 (08:42→17:20)
[2020-07-19] MEDS: INSULIN GLARGINE SYRINGE. SQ SCH ×2 (09:00→22:32)
[2020-07-19] MEDS: LOSARTAN 50 MG TABLET. PO SCH (10:48)
[2020-07-19] MEDS: DEXAMETHASONE 4 MG TABLET PO SCH ×3 (10:49→22:29)
[2020-07-19] MEDS: LACTOBACILLUS RHAMNOSUS GG 1 CAPSULE. PO SCH ×2 (10:49→22:30)
[2020-07-19] MEDS: MULTIVITAMIN I-VITE TABLET. PO SCH (10:49)
[2020-07-19] MEDS: ALLOPURINOL 300 MG TABLET. PO SCH (10:50)
[2020-07-19] MEDS: AZITHROMYCIN 250 MG TABLET. PO SCH (10:50)
[2020-07-19] MEDS: FUROSEMIDE 40 MG TABLET PO SCH (10:50)
[2020-07-19] MEDS: ZINC SULFATE 220 MG CAPSULE. PO SCH (10:51)
[2020-07-19] MEDS: CHOLECALCIFEROL (VITAMIN D3) 1,000 UNIT TABLET PO SCH (10:51)
[2020-07-19] MEDS: ASPIRIN CHEWABLE 81 MG TABLET. PO SCH (10:51)
[2020-07-19] MEDS: ENOXAPARIN ** NOTE DOSE ** SYRINGE SQ SCH ×2 (10:55→22:31)
[2020-07-19 11:00] VITALS: BP 130/58
[2020-07-19 15:00] VITALS: BP 147/59
--- NOTE | 2020-07-19 16:50 | PN ---
DATE: SUBJECTIVE: A 69-year-old male who is in with COVID-19 pneumonia, sepsis. He is doing somewhat better. He also has congestive heart failure, diuresing good. Blood sugars are still elevated with the Decadron and will be decreased on that. As a result of this, the patient will continue to be monitored carefully in the ICU. OBJECTIVE: VITAL SIGNS: Blood pressure 130/60, respiratory rate 20, pulse 70, afebrile. GENERAL: The patient is alert and oriented, feeling better. LUNGS: Diminished, but clear. CARDIOVASCULAR: Regular sinus rhythm. ABDOMEN: Tam in place. EXTREMITIES: No clubbing, cyanosis, +2 edema. LABORATORY DATA: The patient's labs still show blood sugars running too high. Hemoglobin and hematocrit are stable as well as his chemistry; BUN and creatinine of 59 and 1.7. Otherwise, the patient continues on diuresis and other medications for his COVID-19 including remdesivir and will make further evaluation. IMPRESSION: Acute on chronic respiratory failure with congestive heart failure and COVID-19 pneumonia, acute on chronic diastolic heart failure; type 2 diabetes, poorly controlled; morbid obesity, accelerated hypertension, labile dyslipidemia, paroxysmal atrial fibrillation. The patient with obstructive sleep apnea, lactic acidosis. The patient continues to be monitored carefully and diuresed and continue his slow but progressive rehabilitation as well. He also has severe protein malnutrition and chronic kidney disease stage 3B as noted. LONI CHISHOLM MD DR: PABLO/tenisha JOB#: [id number] / [id number]
--- NOTE | 2020-07-19 18:42 | NUR ---
Shift Note: Pt a/o x4, VSS (pt was on BIPAP at beginning of shift and at end of the shift 16/6 50% FiO2 and sating 95-96%, Patient was eventually placed on6 liters NC and sating 90-91%), pt stated he slept well on the BIPAP, ivan catheter draining clear yellow urine (pt continues to desat, although not as badly, with activity getting up to use BSC and has a cont. need for ivan, patient did seem to recover faster today after activity), patient also worked with OT today tolerating the minimal activity. Patient did use inhalers q4hrs while awake and states "they seem to help", pt sat up in the chair for most of the morning and mid afternoon. Patient does seem to have more of a cough today than previously. WCTM
[2020-07-19] MEDS: REMDESIVIR 100mg in NORMAL SALINE 250ML X 4 DAYS IV SCH (22:29)
[2020-07-19 22:30] VITALS: BP 156/66
[2020-07-19] MEDS: FAMOTIDINE 20 MG TABLET PO SCH (22:30)
--- NOTE | 2020-07-19 22:30 | NUR ---
Pt's blood sugar is 174. Pt refuses lantus and regular insulin. Call light in place. Will continue to monitor.
[2020-07-20] MEDS: NITROGLYCERIN OINT 1 GM PACKET. TP SCH (05:06)
[2020-07-20] MEDS: ALBUTEROL SULFATE 8GM INHALER. INH SCH ×2 (05:07→10:08)
[2020-07-20] MEDS: IPRATROPIUM/ALBUTEROL 20/100mcg/INH INHALER. INH SCH ×2 (05:07→10:08)
[2020-07-20 05:57] VITALS: BP 153/69
[2020-07-20] MEDS: DEXAMETHASONE 4 MG TABLET PO SCH (08:35)
[2020-07-20] MEDS: PANTOPRAZOLE 40 MG TABLET. PO SCH (08:35)
[2020-07-20] MEDS: LACTOBACILLUS RHAMNOSUS GG 1 CAPSULE. PO SCH (08:36)
[2020-07-20] MEDS: ZINC SULFATE 220 MG CAPSULE. PO SCH (08:36)
[2020-07-20] MEDS: ASPIRIN CHEWABLE 81 MG TABLET. PO SCH (08:36)
[2020-07-20] MEDS: FUROSEMIDE 40 MG TABLET PO SCH (08:36)
[2020-07-20] MEDS: LOSARTAN 50 MG TABLET. PO SCH (08:36)
[2020-07-20] MEDS: CARVEDILOL 12.5 MG TABLET PO SCH (08:37)
[2020-07-20] MEDS: AZITHROMYCIN 250 MG TABLET. PO SCH (08:37)
[2020-07-20] MEDS: COLCHICINE 0.6 MG TABLET. PO SCH (08:40)
[2020-07-20] MEDS: CHOLECALCIFEROL (VITAMIN D3) 1,000 UNIT TABLET PO SCH (08:44)
[2020-07-20] MEDS: MULTIVITAMIN I-VITE TABLET. PO SCH (08:44)
[2020-07-20] MEDS: ENOXAPARIN ** NOTE DOSE ** SYRINGE SQ SCH (08:47)
[2020-07-20] MEDS: ALLOPURINOL 300 MG TABLET. PO SCH (08:47)
[2020-07-20] MEDS: INSULIN GLARGINE SYRINGE. SQ SCH (08:49)
[2020-07-20] MEDS: INSULIN LISPRO 300 UNITS/3 ML VIAL. SQ SCH ×4 (10:08→12:19)
[2020-07-20 11:00] VITALS: BP 167/75
[2020-07-20 11:38] LABS: ALBUMIN 2.2 g/dL (3.4-5.0); ALBUMIN/GLOBULIN RATIO 0.5 (1.0-1.7); CALCIUM 8.6 mg/dL (8.5-10.1); CREATININE 1.7 mg/dL (0.7-1.3); GFR 40.3; TOTAL BILIRUBIN 0.2 mg/dL (0.2-1.0); TOTAL PROTEIN 6.4 g/dL (6.4-8.2)
[2020-07-20] MEDS ORDERED: DEXA4TAB63 PO (13:09)
[2020-07-20] MEDS ORDERED: HYDR-2869 PO (13:09)
[2020-07-20] MEDS ORDERED: AZIT250T6 PO (13:09)
[2020-07-20] MEDS ORDERED: FAMO20TA5 PO (13:09)
[2020-07-20] MEDS ORDERED: INSU100V8 SQ (13:09)
[2020-07-20] MEDS ORDERED: FURO40TA4 PO (13:09)
--- NOTE | 2020-07-20 13:55 | PDOC ---
DATE OF SERVICE: DOS: DATE: 07/20/20 TIME: 13:52 SUBJECTIVE: Patient seen and evaluated OBJECTIVE: Problems: Problems Medical Problems: (1) COVID-19 Status: Acute (2) HFrEF (heart failure with reduced ejection fraction) Status: Acute (3) Multifocal pneumonia Status: Acute Vital Signs/I&O: Vital Signs Date Time Temp Pulse Resp B/P (MAP) Pulse Ox O2 Delivery O2 Flow Rate FiO2 07/20/20 08:37 63 153/69 07/20/20 08:00 Bi-pap 07/20/20 05:57 92 6.0 07/19/20 15:00 98.2 16 I & O 07/19/20 07/19/20 07/20/20 15:00 23:00 07:00 Intake Total 600 ml 100 ml 400 ml Output Total 1300 ml 1000 ml Balance 600 ml -1200 ml -600 ml Labs: Laboratory Tests Test 07/19/20 17:27 07/19/20 22:43 07/20/20 07:25 07/20/20 12:15 Glucose (Fingerstick) 192 mg/dL (70-99) H 175 mg/dL (70-99) H 365 mg/dL (70-99) H Sodium Level 138 mmol/L (136-145) Potassium Level 4.0 mmol/L (3.5-5.1) Chloride Level 103 mmol/L (98-107) Carbon Dioxide Level 27 mmol/L (21-32) Anion Gap 8 (6-14) Blood Urea Nitrogen 66 mg/dL (8-26) H Creatinine 1.7 mg/dL (0.7-1.3) H Estimated GFR (Cockcroft-Gault) 40.3 BUN/Creatinine Ratio 39 (6-20) H Glucose Level 208 mg/dL (70-99) H Calcium Level 8.6 mg/dL (8.5-10.1) Total Bilirubin 0.2 mg/dL (0.2-1.0) Aspartate Amino Transferase (AST) 33 U/L (15-37) Alanine Aminotransferase (ALT) 63 U/L (16-63) Alkaline Phosphatase 64 U/L (46-116) Total Protein 6.4 g/dL (6.4-8.2) Albumin 2.2 g/dL (3.4-5.0) L Albumin/Globulin Ratio 0.5 (1.0-1.7) L Physical Exam: Visual examination as per Covid status. ASSESSMENT: Acute on chronic respiratory failure with CHF and COVID PNA. Gradually improving. Creatinine on morning lab of 1.7. Acute on chronic diastolic heart failure. Echo 09/04 with preserved LV systolic function Accelerated hypertension; labile but improved. Diabetes, II Dyslipidemia; LDL 52 MG on CKD; morning creatinine of 1.7. PAFIB; maintaining SR. Low AFIB burden SSS s/p PPM ([employer]); device check 11/02 with normal function. Established care with Dr. Arredondo recently. Obstructive sleep apnea, morbid obesity; CPAP Justification of Admission: Justification of Admission: Justification of Admission Dx: Yes LIZA DE LA O MD Jul 20, 2020 13:54
[2020-07-20 15:52] VITALS: BP 167/75
--- NOTE | 2020-07-20 16:15 | NUR ---
pt was discharged from hospital. IV was D/C and gauze dressing was placed over site with no complications. pt was instructed on use of oxygen and given [facility]'s number to notify them when they get home so they can bring extra oxygen tanks for the pt. Pt's discharge paperwork was reviewed and patient signed. Pt agrees for plan with oxygen. Pt was wheeled out to the front door where was waiting to take patient home.
--- NOTE | 2020-07-20 20:45 | PN ---
DATE: SUBJECTIVE: A 69-year-old male, ____ with pneumonia secondary to COVID-19, sepsis and also heart failure. The patient notes he has improved. He is feeling much better and has a good attitude. The patient has diuresed nicely. Legs are now much smaller than they have been. He is breathing easier. Cardiology is also following him. OBJECTIVE: VITAL SIGNS: The patient's blood pressure is 140/65, respiratory rate 16, pulse 60, afebrile. GENERAL: The patient is alert and oriented. HEENT: Head is atraumatic, normocephalic. Eyes are PERRLA. LUNGS: Diminished, poor movement of air. CVR: Regular sinus rhythm. ABDOMEN: Protuberant. EXTREMITIES: No clubbing, cyanosis, +1 pitting edema, improved there. The patient's weight approximately is 137 kilograms. LABORATORY DATA: Show sodium and potassium 140 and 3.7, BUN and creatinine 65 and 1.8. Sugars are down in the 100s. He has severe protein malnutrition. In any case, the patient makes good progress with the remdesivir, the antibiotics and diuresis. Continue with such. IMPRESSION: Therefore of pneumonia with COVID-19 pneumonia; sepsis as well as type 2 diabetes; elevated liver enzymes; severe protein malnutrition; anemia of chronic disease; morbid obesity; acute on chronic diastolic heart failure, stable; type 2 diabetes; accelerated hypertension; paroxysmal atrial fibrillation; sleep apnea; lactic acidosis. PLAN: Continue with present drug regimen as it seems to be improving. Try to complete his course of remdesivir, then hopefully ready for discharge. LONI CHISHOLM MD DR: PABLO/tenisha JOB#: [id number] / [id number]
--- NOTE | 2020-07-21 16:01 | PN ---
DATE: SUBJECTIVE: A 69-year-old gentleman in with sepsis and COVID-19 pneumonia. The patient has been making relatively good progress; however, it was said earlier today that he needed 6 liters per nasal cannula to keep his oxygen saturation up to 92%. The patient, otherwise, feels much better overall. PHYSICAL EXAMINATION: GENERAL: The patient is alert and oriented. LUNGS: Diminished primarily, but basically clear. CARDIOVASCULAR: Stable. ABDOMEN: Protuberant, soft. EXTREMITIES: No clubbing, cyanosis. Trace edema noted, but markedly improved there. His last weight was 138 kilos. The patient still continues to receive some Lasix, ____ remdesivir, seems to be making fairly good progress overall and I will continue to be monitored carefully. IMPRESSION: Therefore, sepsis, COVID-19 pneumonia, morbid obesity, acute on top of chronic diastolic heart failure, type 2 diabetes. PLAN: The patient continued to be monitored, adjust ____ medications and hopefully ready for discharge ____ very soon. LONI CHISHOLM MD DR: PABLO/tenisha JOB#: [id number] / [id number]
== END 2020-07-20 16:15 | disposition home or self-care (01) | DRG 871 ==
LOC: ER 11:44 → ICU 14:00
PROVIDERS: ADMIT Family Medicine; ATTEND Family Medicine
PROC: XW033E5 Introduction of Remdesivir Anti-infective into Peripheral Vein, Percutaneous Approach, New Technology Group 5 (ICD-10-PCS; principal; 2020-07-15)
PROC: 5A09357 Assistance with Respiratory Ventilation, Less than 24 Consecutive Hours, Continuous Positive Airway Pressure (ICD-10-PCS; 2020-07-18)
PROC: 5A09357 Assistance with Respiratory Ventilation, Less than 24 Consecutive Hours, Continuous Positive Airway Pressure (ICD-10-PCS; 2020-07-19)
PROC: 5A09357 Assistance with Respiratory Ventilation, Less than 24 Consecutive Hours, Continuous Positive Airway Pressure (ICD-10-PCS; 2020-07-20)
DX: A41.89 Other specified sepsis (principal); U07.1 COVID-19; J96.20 Acute and chronic respiratory failure, unspecified whether with hypoxia or hypercapnia; J12.89 Other viral pneumonia; E43 Unspecified severe protein-calorie malnutrition; I50.33 Acute on chronic diastolic (congestive) heart failure; N17.9 Acute kidney failure, unspecified; Z68.42 Body mass index [BMI] 45.0-49.9, adult; I13.0 Hypertensive heart and chronic kidney disease with heart failure and stage 1 through stage 4 chronic kidney disease, or unspecified chronic kidney disease; D63.8 Anemia in other chronic diseases classified elsewhere; E11.65 Type 2 diabetes mellitus with hyperglycemia; E66.01 Morbid (severe) obesity due to excess calories; E78.00 Pure hypercholesterolemia, unspecified; E78.5 Hyperlipidemia, unspecified; G47.33 Obstructive sleep apnea (adult) (pediatric); I25.10 Atherosclerotic heart disease of native coronary artery without angina pectoris; I48.0 Paroxysmal atrial fibrillation; I49.5 Sick sinus syndrome; N18.32 Chronic kidney disease, stage 3b; Z95.0 Presence of cardiac pacemaker; M19.90 Unspecified osteoarthritis, unspecified site; N18.30 Chronic kidney disease, stage 3 unspecified
CPT/HCPCS: 36415; 71045; 80048; 80053; 81001; 82550; 82947; 83605; 83735; 83880; 84484; 85025; 85379; 87040; 93005; 94660; 96365; 96366; 96368; 99285; J0456; J0696; J1100; J1650; J1815; J1940; J7050; J7613; J8540; 97110; 97116

== ENCOUNTER → 2020-10-19 | Outpatient (CLI) | payer MEDICARE ==
[~2020-10-19] MED LIST changes: +AZIT250T6 PO; +DEXA4TAB63 PO; +FAMO20TA5 PO; +HYDR-2869 PO; +INSU100V8 SQ; -INSULIN LISPRO 300 UNITS/3 ML VIAL. SQ SCH; +VIT1TABL96 PO
--- NOTE | 2020-10-19 11:49 | RAD ---
CT abdomen pelvis without contrast. HISTORY: Right flank pain, lower abdominal pain CT scan of the abdomen pelvis was done without contrast. Comparison is made with a study from November 15. Lung bases are clear. There is no effusion. Liver is normal in appearance. There is no calcified gallstone. Spleen and adrenal glands are unremarkable. Intrarenal calculus is not identified. A uret eral calculus is not identified. There is a cyst in the left kidney, no further follow-up of the ibis l cyst is warranted. There is no aortic aneurysm or periaortic adenopathy. There is mild nonspecific edema in the mesentery. There is no small bowel obstruction. There is a small umbilical hernia. There is diverticulosis of the colon without an acute diverticulitis. IMPRESSION: 1. Mild nonspecific edema or haziness in the mesentery or panniculitis. 2. No renal or ureteral calculus. 3. Negative for diverticulitis. 4. Small umbilical hernia. PQRS Compliance Statement: One or more of the following individualized dose reduction techniques were utilized for this examinat ion: 1. Automated exposure control 2. Adjustment of the mA and/or kV according to patient size 3. Use of iterative reconstruction technique Electronically signed by: Mehran Rivas MD (10/19/2020 11:46 AM) [id number]
== END ==
LOC: CT 11:11
PROVIDERS: ATTEND Family Medicine
DX: K42.9 Umbilical hernia without obstruction or gangrene (principal); K57.30 Diverticulosis of large intestine without perforation or abscess without bleeding; N28.1 Cyst of kidney, acquired
CPT/HCPCS: 74176

== ENCOUNTER → 2020-10-22 | Outpatient (CLI) | payer MEDICARE ==
[~2020-10-22] MED LIST changes: +PERFLUTREN PROTEIN-A MICROSPHR 0.22 MG/ML 3 ML VIAL. IV ONE
--- NOTE | 2020-10-22 17:18 | CARD ---
MR#: [id number] Date of Study: 10/22/2020 Ordering Physician: GOPAL LLOYD, Referring Physician: GOPAL LLOYD, Tech: Tasneem Hunt [facility] APPROVED REPORT EXAM: Two-dimensional and M-mode echocardiogram with Doppler and color Doppler. Other Information Quality : Technically Limited Technically limited study due to body habitus. INDICATION Congestive Heart Failure Echo Enhancing Agent Agent/Amount Used: [id number] 2D DIMENSIONS RVDd3.6 (2.9-3.5cm)Left Atrium(2D)4.7 (1.6-4.0cm) IVSd1.3 (0.7-1.1cm)Aortic Root(2D)3.6 (2.0-3.7cm) LVDd4.1 (3.9-5.9cm)LVOT Diameter2.4 (1.8-2.4cm) PWd1.3 (0.7-1.1cm)LVDs3.0 (2.5-4.0cm) FS (%) 25.8 %SV38.0 ml LVEF(%)51.2 (>50%) Mitral Valve MV E Ldppnbcm38.6cm/sMV DECEL [id number] MV A Bkfjmxtg38.1cm/sE/A Ratio1.2 Tricuspid Valve TR P. [id number] [id number] TR Peak Gr.[id number] LEFT VENTRICLE The left ventricle is normal size. There is mild concentric left ventricular hypertrophy. Left ventri jonathan systolic function is low normal. The Ejection Fraction is 50-55%. There is normal LV segmental wa ll motion. Transmitral Doppler flow pattern is Grade I-abnormal relaxation pattern. RIGHT VENTRICLE The right ventricle is mildly dilated. Right ventricular function cannot be assessed due to poor imag e quality. There are device leads in the right ventricle and atrium. ATRIA The left atrium is mildly dilated. The right atrium is not well visualized. Interatrial septum not we ll visualized. AORTIC VALVE The aortic valve appears normal in structure and function. Doppler and Color Flow revealed no signifi cant aortic regurgitation. There is no significant aortic valvular stenosis. MITRAL VALVE The mitral valve is calcified but opens well. There is no evidence of mitral valve prolapse. There is no mitral valve stenosis. Doppler and Color Flow revealed no mitral valve regurgitation noted. TRICUSPID VALVE The tricuspid valve is not well visualized. Doppler and Color Flow revealed trace to mild tricuspid r egurgitation. The PA pressure was estimated at 26 mmHg. There is no tricuspid valve stenosis. PULMONIC VALVE The pulmonic valve is not well visualized. Doppler and Color Flow revealed no pulmonic valvular regur gitation. There is no pulmonic valvular stenosis. GREAT VESSELS The aortic root is normal in size. The ascending aorta is mildly dilated at 3.6 cm. The IVC was not v isualized. PERICARDIAL EFFUSION There is no evidence of significant pericardial effusion. Critical Notification Critical Value: No <Conclusion> The left ventricle is normal size. Left ventricle systolic function is low normal. The Ejection Fraction is 50-55%. There is mild concentric left ventricular hypertrophy. Doppler and Color Flow revealed no significant aortic regurgitation. There is no significant aortic valvular stenosis. Doppler and Color Flow revealed no mitral valve regurgitation noted. Doppler and Color Flow revealed trace to mild tricuspid regurgitation. The PA pressure was estimated at 26 mmHg. The ascending aorta is mildly dilated at 3.6 cm. Signed by : Antonino Shaikh MD Electronically Approved : 10/22/2020 17:17:56
== END ==
LOC: ECHO 10:35
PROVIDERS: ATTEND Internal Medicine Cardiovascular Disease
DX: I08.1 Rheumatic disorders of both mitral and tricuspid valves (principal); I50.30 Unspecified diastolic (congestive) heart failure
CPT/HCPCS: C8929; Q9956

== ENCOUNTER → 2021-03-27 | Outpatient (CLI) | payer MEDICARE ==
[~2021-03-27] MED LIST changes: -PERFLUTREN PROTEIN-A MICROSPHR 0.22 MG/ML 3 ML VIAL. IV ONE
--- NOTE | 2021-03-27 16:19 | RAD ---
Right lower extremity venous Doppler ultrasound History: Reason: RLE SWELLING, DM Comparison: None. Procedure: Color flow Doppler, Doppler spectral analysis, and 2D images are obtained with and without compression in the area of the common femoral vein, superficial femoral vein - femoral vein junction , main femoral vein (superficial femoral vein) and popliteal vein. Veins of the proximal calf are als o imaged. Findings: Limited visualization of calf veins due to edema and patient body habitus. The peroneal vein is not v isualized. There is subcutaneous edema of the calf. There is normal color flow, augmentation, and compressibilit y of all visualized vein segments. No evidence of deep venous thrombus is present. IMPRESSION: No evidence of right lower extremity deep venous thrombosis. Electronically signed by: Davon Herbert MD (03/27/2021 4:16 PM) SHARONJOHN
== END ==
LOC: US 15:38
PROVIDERS: ATTEND Family Medicine
DX: I82.411 Acute embolism and thrombosis of right femoral vein (principal); E11.65 Type 2 diabetes mellitus with hyperglycemia
CPT/HCPCS: 93971

== ENCOUNTER 2021-07-19 21:12 | Emergency (ER) | payer MEDICARE ==
[~2021-07-19] VITALS: Ht 172.7 cm; Wt 144.0 kg
--- NOTE | 2021-07-19 21:39 | PHYS DOC ---
Past History Past Medical History: CHF, COPD, Diabetes Past Surgical History: No Surgical History Alcohol Use: None Drug Use: None Adult General Chief Complaint Chief Complaint: Neck Pain HPI HPI Patient is a 70-year-old male who presents with a chief complaint of neck and shoulder pain that started 4 days ago. States it has been intermittent, dull and achy in nature, 7 out of 10 at its worst, normal at its best with no radiation. States he saw his primary care physician 2 days ago and was diagnosed with something musculoskeletal, given a shot of Toradol, and a muscle relaxer which did take the pain away for about a day. States that it started again early this morning when he woke up, and hurts when he turns his head to the left and feels better when he turns his head to the right and his left side of his neck feels really tight. Denies any recent traumas, travels, illnesses, fevers, neck pain, chest pain, shortness of breath, dyspnea on exertion, orthopn ea, PND edema, abdominal pain, nausea, vomiting, diarrhea. Denies any numbness/weakness/tingling. Denies any trouble sitting, standing or walking. States he is making urine and stool normally for him. Review of Systems Review of Systems Review of systems otherwise unremarkable except noted in HPI Allergies Allergies Allergies Coded Allergies Type Severity Reaction Last Updated Verified No Known Drug Allergies 09/07/14 No Physical Exam Physical Exam Constitutional: Well developed, well nourished, no acute distress, non-toxic appearance. [] HENT: Normocephalic, atraumatic, bilateral external ears normal, oropharynx moist, no oral exudates, nose normal. [] Eyes: conjunctiva normal, no discharge. [] Neck: Mild left-sided cervical paraspinal muscle tenderness and tightness on active and passive range of motion with no obvious deformities, bruising or step-offs of spine with no midline tenderness of the C-spine, range of motion intact. Cardiovascular:Heart rate regular rhythm, no murmur [] Lungs & Thorax: Bilateral breath sounds clear to auscultation [] Skin: Warm, dry, no erythema, no rash. [] Back: No tenderness, no deformities, or bruising Extremities: No tenderness, no cyanosis, no clubbing, ROM intact, no edema. [] Neurologic: Alert and oriented X 3, normal motor function, normal sensory fu nction, able to sit, stand and walk without issue, no focal deficits noted. [] Psychologic: Affect normal, judgement normal, mood normal. [] EKG EKG [] Radiology/Procedures Radiology/Procedures [] Heart Score C/O Chest Pain: No Risk Factors: Risk Factors: DM, Current or recent (<one month) smoker, HTN, HLP, family history of CAD, obesity. Risk Scores: Risk Factors: DM, Current or recent (<one month) smoker, HTN, HLP, family history of CAD, obesity. Course & Med Decision Making Course & Med Decision Making Patient is a 70-year-old male who presents with left neck and shoulder muscle spasm and tightness for the last 4 days Vital signs not concerning. Physical exam noted above. EKG with normal rate, normal QTC, normal QRS but irregular rhythm/A. fib and troponin not concerning. Given medicines for neck pain and muscle spasm. Discussed all findings with patient. Advised to follow-up Wednesday with his primary care physician to discuss need for further evaluation and treatment including possible orthopedic consult. Gave return precautions to the ED. Patient grateful, verbalized understanding and agreed with plan of discharge. [] Dragon Disclaimer Dragon Disclaimer This electronic medical record was generated, in whole or in part, using a voice recognition dictation system. Departure Departure: Impression: Primary Impression: Neck pain Additional Impression: Shoulder pain Disposition: HOME / SELF CARE / HOMELESS Referrals: LONI CHISHOLM MD (PCP) Patient Instructions: RICE - Routine Care for Injuries Additional Instructions: Thank you for coming into the emergency department tonight and allowing us to take care of you. Please read the attached information carefully to go back over some of the things we discussed. You can continue a Tylenol, ibuprofen and ice regimen as we discussed. Please take your muscle relaxers as needed and as prescribed. Please follow-up on Wednesday with your primary care physician to update on ED visit and set up a follow-up as needed. Please come back with new or concerning symptoms as we discussed. Problem Qualifiers CARY CLARK MD Jul 19, 2021 21:39
[2021-07-19] MEDS ORDERED: KETOROLAC 30 MG/ML VIAL. IM ONE (22:00)
[2021-07-19] MEDS ORDERED: oxyCODONE/APAP 5/325 1 TAB TABLET PO ONE (22:00)
[2021-07-19] MEDS ORDERED: CYCLOBENZAPRINE 10 MG TABLET. PO ONE (22:00)
[2021-07-19] MEDS ORDERED: CYCLOBENZAPRINE 10MG 4TABLET STARTPACK PO ONE (22:30)
[2021-07-19 23:23] VITALS: BP 172/80
--- NOTE | 2021-07-19 23:44 | EKG ---
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
== END 2021-07-19 23:26 | disposition home or self-care (01) ==
LOC: ER 21:12
DX: M54.2 Cervicalgia (principal); M25.512 Pain in left shoulder; E11.9 Type 2 diabetes mellitus without complications; J44.9 Chronic obstructive pulmonary disease, unspecified; I50.9 Heart failure, unspecified
CPT/HCPCS: 36415; 84484; 93005; 96372; 99284; J1885